=== PATIENT | female | born 1935 | race Caucasian/White ===

== ENCOUNTER 2019-09-22 10:18 | Outpatient (CLI) | payer MEDICARE ==
--- NOTE | 2019-09-22 13:39 | MRI ---
MRI BRAIN WITH AND WITHOUT CONTRAST: Date: 09/22/2019 COMPARISON: None. HISTORY: Family history of intracranial aneurysm, personal history of headaches. TECHNIQUE: Multiplanar, multisequence MR imaging of the brain is obtained with and without contrast. FINDINGS: The diffusion-weighted imaging demonstrates no evidence for acute infarction. The axial gradient echo imaging demonstrates no evidence for intracranial hemorrhage. Regional bone marrow signal intensity appears grossly unremarkable. Arterial flow-voids at the axial level of the skull base appear grossly unremarkable on the T2-weight ed imaging. There is multifocal periventricular, deep, and subcortical white matter T2 and FLAIR hyperintensity, evidence of multifocal small vessel disease. The postcontrast imaging demonstrates no abnormal enhancement within the brain parenchyma. Please not e that this study is not tailored to evaluate the intracranial arterial structures with respect to in tracranial aneurysm. IMPRESSION: Small vessel disease. No acute findings. POS: [facility]
== END 2019-09-22 10:19 | disposition home or self-care (01) ==
LOC: SCSMRI 10:18
PROVIDERS: ATTEND Family Medicine
DX: R51 Headache (principal); G45.9 Transient cerebral ischemic attack, unspecified; Z82.49 Family history of ischemic heart disease and other diseases of the circulatory system
CPT/HCPCS: 70553; 82565

== ENCOUNTER 2020-05-03 17:49 | Inpatient (IN) | payer MEDICARE ==
[2020-05-03] MEDS ORDERED: Aspirin Chewable 81 MG TAB ONE (18:53)
[2020-05-03] MEDS ORDERED: Furosemide 40 MG/4 ML VIAL ONE (18:53)
[2020-05-03 19:26] LABS: Troponin I 0.037 ng/mL (< 0.028)
[2020-05-03] MEDS ORDERED: Ondansetron ODT 4 MG TAB PO PRN (19:32)
[2020-05-03] MEDS ORDERED: Acetaminophen 650 MG Suppository PR PRN (19:32)
[2020-05-03] MEDS ORDERED: Ondansetron PF 4 MG/2 ML Vial IVP PRN (19:32)
[2020-05-03] MEDS ORDERED: Acetaminophen 325 MG TAB PO PRN (19:32)
--- NOTE | 2020-05-03 19:32 | PDOC.FPRHP ---
- History of Present Illness Chief Complaint: CP, SOB History of Present Illness: 84 yo F history of HTN and HLD transfer from [place] complaining of SOB for past week and was found to be in Afib w/RVR with a HR of 141. Patient explains she has been increasingly short of breath the past week especially when walking or lying flat, having to sleep in her recliner the past 4 nights. She also describes swelling in her LE that she first noticed a couple days ago. Patient experienced one episode of chest pain for about half the day a week ago which felt like an elephant was sitting on her chest but has not felt it since. She also endorses an episode of feeling like her heart was racing in the past week. Patient denies fever, chills, N/V, abdominal pain or weakness. ED Course: EKG in [facility] ED revealed Afib w/RVR. Patient received 20 of cardizem and was started on cardizem drip. Received 10mg IV lasix. Cardizem drip on 15/hr in our ED and received an additional 40mg IV lasix - Allergies/Adverse Reactions Allergies Allergy/AdvReac Type Severity Reaction Status Date / Time No Known Drug Allergies Allergy Unverified 05/03/20 19:50 - History PMHx: HTN, HLD, stroke in 2007 PSHx: hysterectomy, skin cancer removal on face FHx: Dad-heart disease, DM. Brother - heart Social: 1/2 PPD for 70 years, denies alcohol, marijuana or drug use - Review of Systems General: denies: fever/chills Eyes: denies: vision changes ENT: denies: nasal congestion, rhinorrhea Respiratory: reports: cough, shortness of breath. denies: congestion Cardiovascular: reports: chest pain, palpitation, edema, paroxysmal nocturnal dyspnea, orthopnea Gastrointestinal: denies: nausea, vomiting, diarrhea, constipation, abdominal pain Genitourinary: denies: dysuria Skin: denies: rashes Musculoskeletal: reports: swelling. denies: pain, tenderness Neurological: denies: numbness, syncope, weakness - Vital signs BP: 125/60 HR: 78 RR: 24 Tmax: 97.8 Pox: 97% on 2L Wt: 61kg - Physical Exam Constitutional: NAD, awake, alert and oriented HEENT: normocephalic and atraumatic, EOMI, grossly normal vision, grossly normal hearing Neck: supple, FROM, no JVD Heart: RRR, no murmurs/rubs/gallops, pulses present -Heart: 1+ LE edema bilaterally Lungs: no respiratory distress, good air movement -Lungs: decreased breath sounds bases bilaterally Abdomen: soft, non-tender, bowel sounds present Musculoskeletal: normal structure, normal tone, ROM grossly normal Neurological: no focal deficit, CN II-XII intact Skin: no rash/lesions Psychiatric: normal mood and affect, good judgment and insight, intact recent and remote memory FMR H&P: Results - Labs Lab results: Na 142, K 4.2, Cl 107, bicarb 24, BUN 18, Cr 1.27, glucose 104, WBC 7.5, Hgb 15.2, Hct 46.6, Plt 235 - EKG Interpretation EKG: Afib, HR 89 - Radiology Interpretation Chest x-ray Status: report reviewed by me (pulmonary vascular congestion, bilateral pleural effusions) FMR H&P: A/P - Plan 84 yo F history of HTN and HLD omplaining of SOB for past week and was found to be in Afib w/RVR New onset Afib w/RVR -HR 141 in [facility] ED, 89 in our ED -titrate cardizem drip -therapeutic lovenox -Cards consult in AM Possible new onset Heart Failure -Received 50mg IV lasix -CXR: pulmonary vascular congestion, b/l pleural effusion -BNP 677, trop 0.024>0.037 -trend trops -Ddimer pending -Strict I/Os, daily weights -20mg IV lasix daily -Cards consult in AM COPD -Patient reports using inhalers in the past -Wheezing on exam -Duonebs prn Tobacco abuse -aware -Nicotine patches HTN -Continue home meds HLD -Continue home meds DVT PPx: therapeutic lovenox Diet: HH Code: FULL PCP: Tono Dispo: eLOS>48 hours pending evaluation and recommendations by cardiology FMR H&P: Upper Level - Plan Date/Time: 05/03/201931 Sahil Grajeda DO, have evaluated this patient and agree with findings/plan as outlined by management intern resident. Pertinent changes/additions are listed here. 84 yo f w pmhx sig for htn, tobacco use. She reports for the past few weeks she has had chest pain/sob with one acute episode of sever chest pain a week ago. She was sent from clinic to [facility] ED, she was dx with afib rvr and concern for new onset CHF. she was given lasix and cardizem in outside ED with control of rate, improvement to breathing. On my exam she is still mildly sob and reports she is not at her baseline but much improved. on exam she has b/l wheeze throughout, irregularly irregular rhythm, minimal NATALIIA. vs stabilized after cardizem labs wnl initially, ekg positive for afib. Will admit to inpatient for new onset afib/possible CHF, continue lasix, cardizem gtt, anticoagulate and monitor on tele, consult cards in AM. Most likely her HTN heart disease is the cause of afib, will eval structure with echo consider also mild copd exac as cause, start with duonebs, if sig improvement consider adding oral pred. concern also for PE considering hx and new onset afib, will obtain ddimer, fu pend results. no acute infection suspected at this point. regarding other chronic medical conditions please see management intern note for mgmt. Addendum - Attending - Attending Attestation Date/Time: 05/03/20 2300 I personally evaluated the patient and discussed the management with Dr. Vallejo/Remberto. I agree with the History, Examination, Assessment and Plan documented above with any addition or exceptions noted below.
[2020-05-03 20:11] LABS: Cardiac Risk 4.5 (Less than 4.5)
[2020-05-03] MEDS ORDERED: Diltiazem 125 MG in Sodium Chloride 0.9% 100 ML IVPB SCH (20:30)
[2020-05-03] MEDS: Nicotine 14 MG PATCH TD SCH (22:37)
[2020-05-03 23:28] LABS: Troponin I 0.037 ng/mL (< 0.028)
[2020-05-04] MEDS ORDERED: Enoxaparin Sodium 60 MG/0.6 ML SYRINGE SC SCH (00:15)
[2020-05-04 01:58] VITALS: BMI 26.2
--- NOTE | 2020-05-04 06:21 | PDOC.FM ---
- Subjective Subjective: Patient sitting up resting comfortably in bed. She says she feels much better. Per tele, she was in Afib/flutter overnight with rate in the 60s-70s. Her dilt drip is at 10. She is on 1L of O2 and denies SOB, CP, RODRIGUEZ, dizziness, abdominal pain. - Objective MAR Reviewed: Yes Vital Signs & Weight: Vital Signs (12 hours) Temp Pulse Resp BP Pulse Ox 05/04/20 03:07 97.6 F 71 21 H 97 05/04/20 01:47 97 05/04/20 01:45 18 97 05/04/20 00:00 97 05/03/20 21:03 98.4 F 125 H 20 126/76 97 Weight Weight 69.173 kg Result Diagrams: 05/04/20 10:30 05/04/20 10:30 Phys Exam - Physical Examination Constitutional: NAD HEENT: moist MMs Neck: full ROM Respiratory: no wheezing, clear to auscultation bilateral afib Gastrointestinal: soft, non-tender trace edema b/l LE Neurological: moves all 4 limbs Psychiatric: normal affect, A&O x 3 Skin: normal turgor Dx/Plan - Plan Plan: New onset Afib w/RVR -HR 141 in [facility] ED, 89 in our ED -titrate cardizem drip -therapeutic lovenox -Cardiology consulted, appreciate the recs -[id number]: 5 Possible new onset Heart Failure -Received 50mg IV lasix in ED -CXR: pulmonary vascular congestion, b/l pleural effusion -BNP 677, trop 0.024>0.037>.037 -Ddimer 1.19, consider CTA -Strict I/Os, daily weights -20mg IV lasix daily -Cardiology consulted, appreciate the recs -follow up echo results COPD -Patient reports using inhalers in the past -not on home O2, weane off of O2 as able, decreased to 1L this morning -Duonebs prn Tobacco abuse -aware -Nicotine patches HTN -Continue home meds HLD -Continue home meds DVT PPx: therapeutic lovenox Diet: HH Code: FULL PCP: Tono Dispo: eLOS>48 hours pending evaluation and recommendations by cardiology Addendum - Attending - Attending Attestation Date/Time: 05/04/201816 I personally evaluated the patient and discussed the management with Dr. Palmer I agree with the History, Examination, Assessment and Plan documented above with any addition or exceptions noted below - Patient without complaints. Feeling better. SOB resolved. Afebrile VSS. A/P: 1) Afib with RVR - now rate controlled on diltiazem drip. Echo EF=55-60% with left atrial dilation and mod-severe MR. Cardiology consulted and will await further recommendations. 2) HTN- stable; continue home meds
[2020-05-04] MEDS ORDERED: Enoxaparin Sodium 40 MG/0.4 ML SYRINGE SC SCH (09:00)
[2020-05-04] MEDS: Lisinopril 20 MG TAB PO SCH ×2 (09:11→21:01)
[2020-05-04] MEDS: Furosemide 20 MG/2 ML VIAL SLOW IVP SCH (09:12)
[2020-05-04 11:31] LABS: #Eosinphils 0.2 thou/uL (0.0-0.7); #Lymphocytes 1.1 thou/uL (1.20-3.40); #Monocytes 0.9 thou/uL (0.11-0.59); #Neutrophils 8.3 thou/uL (1.40-6.50); %Basophils 0.1 % (0.0-1.0); %Eosinophils 1.8 % (0.0-10.0); %Lymphocytes 10.4 % (21.0-51.0); %Monocytes 8.8 % (0.0-10.0); Hemoglobin 13.8 g/dL (12.0-16.0); Mean Corpuscular HGB CONC 32.2 g/dL (32.0-36.0); Mean Corpuscular Volume 89.8 fL (78.0-98.0); Mean Platelet Volume 8.3 fL (7.4-10.4); Platelet Count 242 thou/uL (130-400); RBC Distribution Width 12.5 % (11.5-14.5); Red Blood Cell (RBC) Count 4.77 mill/uL (4.20-5.40); White Blood Cell (WBC) Count 10.5 thou/uL (4.8-10.8)
[2020-05-04 11:40] LABS: Phosphorus 4.6 mg/dL (2.3-4.7)
[2020-05-04 11:41] LABS: ALT (SGPT) 25 U/L (8-55); AST (SGOT) 20 U/L (5-34); Albumin 3.9 g/dL (3.4-4.8); Alkaline Phosphatase 85 U/L (40-110); Anion Gap 16 mmol/L (10-20); BUN (Urea Nitrogen) 26 mg/dL (9.8-20.1); Bilirubin, Total 0.6 mg/dL (0.2-1.2); Calc. Creatinine Clearance 34 mL/min (70-130); Calcium 9.4 mg/dL (7.8-10.44); Carbon Dioxide 24 mmol/L (23-31); Chloride 107 mmol/L (98-107); Estimated GFR-MDRD 36; Globulin 2.9 g/dL (2.4-3.5); Glucose 103 mg/dL (83-110); Magnesium 1.9 mg/dL (1.6-2.6); Potassium 4.1 mmol/L (3.5-5.1); Protein, Total 6.8 g/dL (6.0-8.3); Sodium 143 mmol/L (136-145)
[2020-05-04 13:00] LABS: SARS-CoV-2 MS2 Positive; SARS-CoV-2 N Gene Negative; SARS-CoV-2 S Gene Negative; SARS-CoV-2 by NAA Not Detected (NotDetected); SARS-CoV-2 orf1ab Negative
[2020-05-04] MEDS: Diltiazem HCl SR 60 mg Capsule PO SCH (17:55)
[2020-05-04] MEDS ORDERED: Diltiazem 125 MG in Sodium Chloride 0.9% 100 ML IVPB SCH (18:00)
[2020-05-04] MEDS: Enoxaparin Sodium 80 MG/0.8 ML SYRINGE SC SCH (21:00)
[2020-05-04] MEDS: Atorvastatin Calcium 20 MG TAB PO SCH (21:01)
[2020-05-04] MEDS: Nicotine 14 MG PATCH TD SCH (21:06)
--- NOTE | 2020-05-04 23:18 | CON ---
DATE OF CONSULTATION: 05/04/2020 REASON FOR CONSULTATION: Atrial fibrillation. HISTORY OF PRESENT ILLNESS: Ms. Lebron is very pleasant 84-year-old woman, who has not been seen by Cardiology in the past. She states she began having issues with shortness of breath one week ago. This was fairly acute. She did have mild chest pressure that was short-lived. Her main issue was shortness of breath and dyspnea on exertion with mild exertion. She has no previous history of thyroid dysfunction or alcohol abuse. She does have a history of hypertension. PAST MEDICAL HISTORY: Hypertension, hyperlipidemia, and previous stroke. PAST SURGICAL HISTORY: Hysterectomy. FAMILY HISTORY: Positive for CAD. SOCIAL HISTORY: Previous tobacco use. No alcohol or marijuana use. REVIEW OF SYSTEMS: A 10-point review of systems is reviewed as above, otherwise negative. PHYSICAL EXAMINATION: VITAL SIGNS: Blood pressure 103/54; pulse 74; and temperature, afebrile. GENERAL: Patient is a pleasant female, who is in no acute distress. The patient appears their stated age. NEUROLOGIC: The patient is alert and oriented x3 with no focal neurologic deficits. HEENT: Sclerae without icterus. Mouth has moist mucous membranes with normal pallor. NECK: No JVD. Carotid upstroke brisk. No bruits bilaterally. LUNGS: Clear to auscultation with unlabored respirations. BACK: No scoliosis or kyphosis. CARDIAC: Irregularly irregular with normal S1 and S2. No S3 or S4 noted. No significant rubs, murmurs, thrills, or gallops noted throughout the precordium. PMI is not displaced. There is no parasternal heave. ABDOMEN: Soft, nontender, nondistended. No peritoneal signs present. No hepatosplenomegaly. No abnormal striae. EXTREMITIES: 2+ femoral and 2+ dorsalis pedis pulses. No cyanosis, clubbing, or edema. SKIN: No gross abnormalities. PERTINENT LABORATORY DATA: Hemoglobin 13.8, hematocrit 42.8, and platelet count of 242. IMPRESSION: New onset atrial fibrillation. RECOMMENDATIONS: Echo, Doppler showed normal LVEF. She does have [id number] MR, which may be causing her symptoms. At this point, we would recommend diuresis. We will also supplement with p.o. Cardizem at 60 mg one p.o. q.8 hours and titrate down her IV dose. Continue Lovenox at mg subcu q.12 and we will transition to a novel oral anticoagulant. Plan is rate control and outpatient cardioversion. Job ID: [id number]
[2020-05-05] MEDS: Diltiazem HCl SR 60 mg Capsule PO SCH ×3 (01:25→19:30)
[2020-05-05 04:38] LABS: #Eosinphils 0.1 thou/uL (0.0-0.7); #Lymphocytes 0.9 thou/uL (1.20-3.40); #Monocytes 0.7 thou/uL (0.11-0.59); #Neutrophils 6.5 thou/uL (1.40-6.50); %Basophils 0.3 % (0.0-1.0); %Eosinophils 1.7 % (0.0-10.0); %Lymphocytes 10.4 % (21.0-51.0); %Monocytes 8.6 % (0.0-10.0); Hemoglobin 13.6 g/dL (12.0-16.0); Mean Corpuscular HGB CONC 32.9 g/dL (32.0-36.0); Mean Corpuscular Hemoglobin 29.3 pg (27.0-31.0); Mean Platelet Volume 8.1 fL (7.4-10.4); Platelet Count 240 thou/uL (130-400); RBC Distribution Width 12.6 % (11.5-14.5); Red Blood Cell (RBC) Count 4.65 mill/uL (4.20-5.40); White Blood Cell (WBC) Count 8.2 thou/uL (4.8-10.8)
[2020-05-05 05:01] LABS: ALT (SGPT) 23 U/L (8-55); AST (SGOT) 16 U/L (5-34); Albumin 3.7 g/dL (3.4-4.8); Alkaline Phosphatase 76 U/L (40-110); Anion Gap 15 mmol/L (10-20); BUN (Urea Nitrogen) 28 mg/dL (9.8-20.1); Bilirubin, Total 0.6 mg/dL (0.2-1.2); Calc. Creatinine Clearance 32 mL/min (70-130); Calcium 9.3 mg/dL (7.8-10.44); Carbon Dioxide 23 mmol/L (23-31); Chloride 110 mmol/L (98-107); Estimated GFR-MDRD 34; Globulin 2.8 g/dL (2.4-3.5); Glucose 103 mg/dL (83-110); Potassium 3.8 mmol/L (3.5-5.1); Protein, Total 6.5 g/dL (6.0-8.3); Sodium 144 mmol/L (136-145)
--- NOTE | 2020-05-05 06:14 | PDOC.FM ---
- Subjective Subjective: Patient is doing well today. Tolerating PO. Denies CP, SOB, dizziness, abdominal pain. - Objective MAR Reviewed: Yes Vital Signs & Weight: Vital Signs (12 hours) Temp Pulse Resp BP Pulse Ox 05/05/20 06:05 94 L 05/05/20 04:00 97.3 F L 84 18 118/64 94 L 05/05/20 00:23 96 05/04/20 19:55 97.6 F 78 20 159/78 H 92 L 05/04/20 19:25 93 L 05/04/20 19:24 96 Weight Weight 69.173 kg I&O: 05/03/20 05/04/20 05/05/20 06:59 06:59 06:59 Intake Total 577 Balance 577 Result Diagrams: 05/05/20 09:09 05/05/20 09:09 Phys Exam - Physical Examination Constitutional: NAD Neck: full ROM Respiratory: no wheezing, clear to auscultation bilateral Cardiovascular: RRR, no significant murmur Gastrointestinal: soft, non-tender Musculoskeletal: pulses present trace edema b/l LE Neurological: moves all 4 limbs Psychiatric: normal affect, A&O x 3 Skin: normal turgor Dx/Plan - Plan Plan: New onset Afib w/RVR -HR 141 in [facility] ED, 89 in our ED -titrate cardizem drip, transition to PO -therapeutic lovenox, will need to discharge on Eliquis 5mg BID -Cardiology consulted, appreciate the recs -[id number]: 5 Possible new onset Heart Failure -Received 50mg IV lasix in ED -CXR: pulmonary vascular congestion, b/l pleural effusion -BNP 677, trop 0.024>0.037>.037 -Ddimer 1.19, consider CTA -Strict I/Os, daily weights -20mg IV lasix daily -Cardiology consulted, appreciate the recs -echo: EF 55-60%, diastolic function could not be assessed. LA severely dilated, moderate to severe MR CEFERINO -likely 2/2 lasix, iatrogenic -will hold morning dose of Lasix as patient is euvolemic -continue to monitor with morning labs -continue to monitor kidney function outpatient COPD -Patient reports using inhalers in the past -not on home O2, weane off of O2 as able, decreased to 1L this morning -Duonebs prn Tobacco abuse -aware -Nicotine patches HTN -Continue home meds HLD -Continue home meds DVT PPx: therapeutic lovenox, transition to Eliquis Diet: Code: FULL PCP: Tono Dispo: eLOS>48 hours pending evaluation and recommendations by cardiology Addendum - Attending - Attending Attestation Date/Time: 05/05/20 7401 I personally evaluated the patient and discussed the management with Dr. Palmer I agree with the History, Examination, Assessment and Plan documented above with any addition or exceptions noted below - Patient without complaints. SOB resolved. Afebrile VSS. A/P: 1) New onset Afib with RVR - rate controlled on diltiazem. Appreciate cardiology recommendations. Plan to transition from lovenox to eliquis tonight. Plan for outpatient cardioversion. 3) CEFERINO- Cr increasing slowly; hold lisinopril today and recheck in AM.
[2020-05-05] MEDS: Enoxaparin Sodium 80 MG/0.8 ML SYRINGE SC SCH (08:34)
[2020-05-05] MEDS: Lisinopril 20 MG TAB PO SCH ×2 (08:36→21:15)
[2020-05-05 09:23] LABS: Hemoglobin 13.8 g/dL (12.0-16.0); Platelet Count 243 thou/uL (130-400)
--- NOTE | 2020-05-05 18:30 | PDOC.CPN ---
- Subjective Date: 05/05/20 Time: 13:10 Interval history: Patient without complaints. Says palpitations have resolved. Tele shows coarse AF vs intermittent AFlutter - Review of Systems General: denies: fever/chills, weight/appetite/sleep changes, night sweats, fatigue Respiratory: denies: cough, congestion, shortness of breath, exercise intolerance Cardiovascular: denies: chest pain, palpitation, edema, paroxysmal nocturnal dyspnea, orthopnea Gastrointestinal: denies: nausea, vomiting, diarrhea, constipation, abd pain, GI bleeding Musculoskeletal: denies: pain, tenderness, stiffness, swelling, arthritis/arthralgias Neurological: denies: numbness, syncope, seizure, weakness - Objective Allergies/Adverse Reactions: Allergies Allergy/AdvReac Type Severity Reaction Status Date / Time No Known Drug Allergies Allergy Verified 05/04/20 01:55 Visit Medications: Current Medications Acetaminophen (Acetaminophen 325 Mg Tab) 650 mg PO Q4H PRN PRN Reason: Headache/Fever/Mild Pain (1-3) Acetaminophen (Acetaminophen 650 Mg Suppository) 650 mg IA Q4H PRN PRN Reason: Headache/Fever/Mild Pain (1-3) Albuterol/Ipratropium (Ipratropium/Albuterol Sulfate 3 Ml Neb) 3 ml NEB [id number] [facility] Last Admin: 05/05/20 13:32 Dose: 3 ml Documented by: Apixaban (Apixaban 5 Mg Tab) 5 mg PO BID [facility] Atorvastatin Calcium (Atorvastatin Calcium 20 Mg Tab) 20 mg PO HS [facility] Last Admin: 05/04/20 21:01 Dose: 20 mg Documented by: Diltiazem HCl (Diltiazem Hcl Sr 60 Mg Capsule) 60 mg PO Q8H [facility] Last Admin: 05/05/20 08:33 Dose: 60 mg Documented by: Furosemide (Furosemide 20 Mg/2 Ml Vial) 20 mg SLOW IVP DAILY [facility] Last Admin: 05/04/20 09:12 Dose: 20 mg Documented by: Lisinopril (Lisinopril 20 Mg Tab) 20 mg PO BID [facility] Last Admin: 05/05/20 08:36 Dose: 20 mg Documented by: Nicotine (Nicotine 14 Mg Patch) 14 mg TD Q24HR [facility] Last Admin: 05/04/20 21:06 Dose: 14 mg Documented by: Ondansetron HCl (Ondansetron Odt 4 Mg Tab) 4 mg PO Q6H PRN PRN Reason: Nausea/Vomiting Ondansetron HCl (Ondansetron Pf 4 Mg/2 Ml Vial) 4 mg IVP Q6H PRN PRN Reason: Nausea/Vomiting Sodium Chloride (Flush - Normal Saline 10 Ml Syringe) 10 ml IVF PRN PRN PRN Reason: Saline Flush Vital Signs & Weight: Vital Signs Temp Pulse Resp BP BP Pulse Ox 05/05/20 11:43 97.9 F 93 18 113/59 L 96 05/05/20 08:36 129/63 05/05/20 08:12 59 L 18 95 05/05/20 08:00 96 05/05/20 07:21 96.0 F L 81 18 130/76 96 Weight 153 lb 7 oz - Physical Exam General: alert & oriented x3, appears well, no apparent distress HEENT: mucus membranes moist Neck: supple neck Cardiac: other (IRR IRR) Lungs: normal breath sounds Neuro: grossly intact Abdomen: soft Extremities: no edema Skin: clear Musculoskeletal: no pain - Labs Result Diagrams: 05/05/20 09:09 05/05/20 09:09 Troponin/CKMB Troponin I 0.037 ng/mL (< 0.028) H 05/03/20 22:40 - Assessment/Plan Assessment/Plan: 1. New-onset AF. ?AFl intermittently Rate-controlled. Patient symptomatically improved. Will ask EP to review tele strips. If not plan for RFA, ok to discharge when rate-controlled for 24 hours.
[2020-05-05] MEDS: Nicotine 14 MG PATCH TD SCH (21:15)
[2020-05-05] MEDS: Apixaban 5 MG TAB PO SCH (21:16)
[2020-05-05] MEDS: Atorvastatin Calcium 20 MG TAB PO SCH (21:16)
[2020-05-06] MEDS: Diltiazem HCl SR 60 mg Capsule PO SCH (01:18)
[2020-05-06 05:02] LABS: #Eosinphils 0.2 thou/uL (0.0-0.7); #Lymphocytes 1.2 thou/uL (1.20-3.40); #Monocytes 0.8 thou/uL (0.11-0.59); #Neutrophils 6.3 thou/uL (1.40-6.50); %Basophils 0.5 % (0.0-1.0); %Eosinophils 2.2 % (0.0-10.0); %Lymphocytes 14.4 % (21.0-51.0); %Monocytes 9.2 % (0.0-10.0); %Neutrophils 73.7 % (42.0-75.0); Hemoglobin 13.7 g/dL (12.0-16.0); Mean Corpuscular HGB CONC 33.2 g/dL (32.0-36.0); Mean Corpuscular Hemoglobin 29.7 pg (27.0-31.0); Mean Corpuscular Volume 89.3 fL (78.0-98.0); Mean Platelet Volume 8.1 fL (7.4-10.4); Platelet Count 263 thou/uL (130-400); RBC Distribution Width 12.5 % (11.5-14.5); White Blood Cell (WBC) Count 8.5 thou/uL (4.8-10.8)
[2020-05-06 05:16] LABS: ALT (SGPT) 19 U/L (8-55); AST (SGOT) 15 U/L (5-34); Albumin 3.7 g/dL (3.4-4.8); Alkaline Phosphatase 79 U/L (40-110); Anion Gap 15 mmol/L (10-20); BUN (Urea Nitrogen) 24 mg/dL (9.8-20.1); Bilirubin, Total 0.7 mg/dL (0.2-1.2); Calc. Creatinine Clearance 39 mL/min (70-130); Carbon Dioxide 25 mmol/L (23-31); Chloride 109 mmol/L (98-107); Estimated GFR-MDRD 42; Globulin 2.9 g/dL (2.4-3.5); Glucose 101 mg/dL (83-110); Potassium 3.9 mmol/L (3.5-5.1); Protein, Total 6.6 g/dL (6.0-8.3); Sodium 145 mmol/L (136-145)
--- NOTE | 2020-05-06 06:17 | PDOC.FM ---
- Subjective Subjective: Patient resting comfortably, sitting up in bed. Denies CP, SOB, dizziness. Overnight, patient had one episode on tele of Afib with rate of 130. Otherwise she has been in Afib vs Aflutter with rates in the 80s. - Objective MAR Reviewed: Yes Vital Signs & Weight: Vital Signs (12 hours) Temp Pulse Resp BP Pulse Ox 05/06/20 04:04 97.5 F L 97 18 97/67 92 L 05/06/20 00:53 94 L 05/05/20 19:50 98.2 F 90 18 114/54 L 96 05/05/20 19:45 94 L 05/05/20 19:43 95 Weight Weight 69.57 kg I&O: 05/04/20 05/05/20 05/06/20 06:59 06:59 06:59 Intake Total 927 650 Output Total 600 Balance 327 650 Result Diagrams: 05/06/20 04:19 05/06/20 04:19 Phys Exam - Physical Examination Constitutional: NAD Neck: full ROM Respiratory: no wheezing, clear to auscultation bilateral Cardiovascular: no significant murmur irregular rhythm Gastrointestinal: soft trace edema b/l Neurological: moves all 4 limbs Skin: normal turgor Dx/Plan - Plan Plan: New onset Afib w/RVR -HR 141 in [facility] ED, 89 in our ED -cardizem gtt stopped 05/05 at 1030 -transitioned to PO -transitioned to Eliquis 5mg BID -Cardiology consulted, appreciate the recs: -Plan for RFA -discharge home when rate controlled for 24 hours -[id number]: 5 Possible new onset Heart Failure -Received 50mg IV lasix in ED -CXR: pulmonary vascular congestion, b/l pleural effusion -BNP 677, trop 0.024>0.037>.037 -Ddimer 1.19, consider CTA -Strict I/Os, daily weights -20mg IV lasix PRN -Cardiology consulted, appreciate the recs -echo: EF 55-60%, diastolic function could not be assessed. LA severely dilated, moderate to severe MR CEFERINO, improving -likely 2/2 lasix, iatrogenic -will hold Lasix as patient seems to be euvolemic -continue to monitor with morning labs -continue to monitor kidney function outpatient COPD -Patient reports using inhalers in the past -not on home O2, weane off of O2 as able, decreased to 1L this morning -Duonebs prn Tobacco abuse -aware -Nicotine patches HTN -Continue home meds HLD -Continue home meds DVT PPx: Eliquis Diet: HH Code: FULL PCP: Tono Dispo: eLOS>48 hours pending evaluation and recommendations by cardiology. Must be rate controlled for 24 hours for discharge. Addendum - Attending - Attending Attestation Date/Time: 05/06/20 5439 I personally evaluated the patient and discussed the management with Dr. Palmer I agree with the History, Examination, Assessment and Plan documented above with any addition or exceptions noted below - Patient denies complaints. SOB res olved. Afebrile VSS. A/P: 1) Afib - did have some increase heart rate this morning. Has transitioned to long acting po calcium channel suzanne. Appreciate cardiology assistance/recommendations. Monitor till heart rate stable for 24 hours.
[2020-05-06] MEDS: Lisinopril 20 MG TAB PO SCH ×2 (07:49→22:57)
[2020-05-06] MEDS: Apixaban 5 MG TAB PO SCH ×2 (07:49→21:48)
[2020-05-06] MEDS: Furosemide 20 MG/2 ML VIAL SLOW IVP SCH (07:50)
--- NOTE | 2020-05-06 13:02 | PRG ---
DATE OF SERVICE: 05/06/2020 SUBJECTIVE: Ms. Lebron is doing better. Heart rate did increase today to 101. She was switched from short-acting calcium channel blockade to long-acting blockade. OBJECTIVE: VITAL SIGNS: Heart rate 97, blood pressure 131/60, temperature 98.1. LUNGS: Clear to auscultation. HEART: Irregularly irregular. ABDOMEN: Soft, nontender, nondistended. EXTREMITIES: No edema. IMPRESSION: 1. New-onset atrial fibrillation. 2. [id number] MR. 3. Tobacco abuse. RECOMMENDATIONS: Once her heart rate is stable and controlled, would be okay from my standpoint to discharge home with close outpatient followup. Plan is to follow up with Ms. Lebron next week in the office and will need to titrate up further if needed her calcium channel blockade. We will also consider cardioversion as an outpatient if she continues to be symptomatic. Job ID: [id number]
--- NOTE | 2020-05-06 19:03 | CON ---
DATE OF CONSULTATION: 05/06/2020 HISTORY OF PRESENT ILLNESS: I am seeing Ms. Lebron at our [facility] telemetry floor for electrophysiology consult and her problems are 1. Presentation with newly found atrial fibrillation with rapid ventricular rates associated with dyspnea. 2. Diastolic heart failure with BNP of 677 on 05/02/2020. a. 2D echo from 05/04/2020 reveals LVEF of 55% to 60%, severely enlarged left atrium with moderate to severe MR, mild to moderate TR. 3. CHADS-VASc score of 6 with history of hypertension, stroke in 2007, age and gender, on Eliquis therapy. 4. Transient epistaxis noted after initiating Eliquis. ALLERGIES: NONE NOTED. MEDICATIONS: At home included Lipitor and lisinopril. SUBJECTIVE: Ms. Lebron is here with her son given her dyspnea for about a [id number]-half prior to admission. She had difficult time breathing, specially lying flat. She has to be often in a recliner 4 nights prior to admission. She also noted markedly lower extremity edema. She did experience an episode of chest pains within a day of admission and she did notice her heart racing as well for at least a week prior to admission. She denies fever, chills, nausea, vomiting, or stroke-like symptoms at this point. She denies prior history of palpitations or arrhythmias. REVIEW OF SYSTEMS: Rest of 12-point review of system otherwise unremarkable. PAST MEDICAL HISTORY: As above. PAST SURGICAL HISTORY: Significant for hysterectomy. FAMILY HISTORY: Significant for coronary artery disease of the father, also brother had heart disease. SOCIAL HISTORY: The patient is a half a pack cigarette smoker for 70 years. Denies EtOH or drug use. OBJECTIVE DATA: VITAL SIGNS: Blood pressure currently 131/60, heart rate 97, respirations 16, and temperature 98.1 degrees Fahrenheit. GENERAL: Alert and oriented woman, in no apparent distress. NECK: Supple. Jugular veins not distended. CHEST: Coarse without crackles. HEART: Sounds are irregularly irregular. S1, S2 are variable. 1/6 holosystolic murmur is heard. ABDOMEN: Benign. Bowel sounds are positive. No hepatosplenomegaly is appreciated. EXTREMITIES: Lower extremities is 0 to 1+ edema bilaterally and pulses are mildly diminished. Lower extremities are warm. NEUROLOGIC: The patient is nonfocal. MUSCULOSKELETAL: Without joint swelling, deformity. SKIN: Without rash. DATABASE: The EKG was reviewed in detail, initially reveals atrial fibrillation with ventricular rates of 141 beats per minute, narrow QRS, QTc 465 milliseconds. Subsequent EKG reveals better rate control with 89 beats per minute on the 3rd at 6 p.m. QTc 462 milliseconds. Telemetry strips revealed continued atrial fibrillation course and occasional atypical atrial flutter waves are seen. LABORATORY DATA: Sodium 145, potassium 3.9, BUN is 24, creatinine 1.22. The white count is 8.5, hemoglobin 13.7, platelet count is 263. The D-dimer is 1.19. The chest x-ray on 05/03/2020 was showing a small pleural effusions and evidence of pulmonary vascular congestion. ASSESSMENT AND PLAN: Mrs. Lebron is a very pleasant 84-year-old lady who is presenting with diastolic heart failure associated with atrial fibrillation and rapid rates. She was diuresed and adequately rate controlled with the initiated diltiazem CD medication. She was placed on Eliquis for anticoagulation. Currently, she is doing better. Her heart failure symptoms have resolved. Atrial fibrillation still persists, but with reasonable rate control. She did mention an episode of epistaxis while on Eliquis, but that is also resolved currently. My plan at this 1. Regarding her atrial fibrillation, we discussed the mechanism and implications of atrial fibrillation. She understands the rationale for anticoagulation and rate control. It is reasonable to consider cardioversion after month of anticoagulation.She is noted to have severe left atrial enlargement. She likely will need antiarrhythmic agents for rhythm suppression. If no coronary artery disease suspected, flecainide could be considered. Alternatively, Multaq vs amiodarone is an option, but close monitoring of her QT length will be necessary. 2. Markedly elevated CHADS-VASc score. Remote history of stroke, age, hypertension, gender. I would recommend continued anticoagulation. If bleeding issues occur and she could not tolerate anticoagulants, she may be a reasonable candidate for Watchman device placement long-term. 3. Hypertension, well controlled. 4. Smoking cessation recommended. We will have to see this lady back in 6 weeks, after her cardioversion with cardiology. Thank you for allowing me to participate in the care of this patient. Job ID: [id number] [facility]Young
[2020-05-06] MEDS: Atorvastatin Calcium 20 MG TAB PO SCH (21:48)
[2020-05-06] MEDS: Nicotine 14 MG PATCH TD SCH (21:51)
[2020-05-07 04:06] LABS: #Eosinphils 0.3 thou/uL (0.0-0.7); #Lymphocytes 0.9 thou/uL (1.20-3.40); #Monocytes 0.9 thou/uL (0.11-0.59); #Neutrophils 5.8 thou/uL (1.40-6.50); %Basophils 0.4 % (0.0-1.0); %Eosinophils 3.4 % (0.0-10.0); %Lymphocytes 11.4 % (21.0-51.0); %Monocytes 11.1 % (0.0-10.0); %Neutrophils 73.7 % (42.0-75.0); Hemoglobin 12.9 g/dL (12.0-16.0); Mean Corpuscular HGB CONC 32.5 g/dL (32.0-36.0); Mean Corpuscular Hemoglobin 29.5 pg (27.0-31.0); Mean Corpuscular Volume 90.7 fL (78.0-98.0); Mean Platelet Volume 8.4 fL (7.4-10.4); Platelet Count 238 thou/uL (130-400); RBC Distribution Width 12.5 % (11.5-14.5); Red Blood Cell (RBC) Count 4.37 mill/uL (4.20-5.40); White Blood Cell (WBC) Count 7.8 thou/uL (4.8-10.8)
[2020-05-07 04:19] LABS: ALT (SGPT) 20 U/L (8-55); AST (SGOT) 18 U/L (5-34); Albumin 3.3 g/dL (3.4-4.8); Alkaline Phosphatase 78 U/L (40-110); Anion Gap 14 mmol/L (10-20); BUN (Urea Nitrogen) 21 mg/dL (9.8-20.1); Bilirubin, Total 0.4 mg/dL (0.2-1.2); Calc. Creatinine Clearance 44 mL/min (70-130); Calcium 8.8 mg/dL (7.8-10.44); Carbon Dioxide 21 mmol/L (23-31); Chloride 110 mmol/L (98-107); Estimated GFR-MDRD 48; Globulin 2.7 g/dL (2.4-3.5); Glucose 98 mg/dL (83-110); Potassium 4.1 mmol/L (3.5-5.1); Sodium 141 mmol/L (136-145)
--- NOTE | 2020-05-07 05:35 | PDOC.FM ---
- Subjective Subjective: Patient reports mild cough this morning. Denies any chest, abdominal pain. Reports mild SOB with exertion. On 2L NC in bed but denies SOB at rest or difficulty breathing. Reports tolerating PO intake and 2 BM. Expresses desire to go home. - Objective MAR Reviewed: Yes Vital Signs & Weight: Vital Signs (12 hours) Temp Pulse Resp BP BP Pulse Ox 05/07/20 03:54 98.5 F 97 20 100/53 L 100 05/07/20 01:24 82 16 94 L 05/06/20 23:45 67 123/59 L 05/06/20 22:57 130/60 05/06/20 20:50 97.8 F 92 18 130/60 92 L 05/06/20 18:43 84 18 95 Weight Weight 69.57 kg I&O: 05/05/20 05/06/20 05/07/20 06:59 06:59 06:59 Intake Total 927 750 Output Total 600 525 Balance 327 225 Result Diagrams: 05/07/20 03:37 05/07/20 03:37 EKG Reviewed by me: Yes (Afib/flutter in 90s) Phys Exam - Physical Examination Constitutional: NAD HEENT: moist MMs Neck: supple, full ROM Respiratory: wheezing present Cardiovascular: irregular Gastrointestinal: soft, no distention, positive bowel sounds Musculoskeletal: no edema Neurological: non-focal, normal sensation Psychiatric: normal affect, A&O x 3 Skin: no rash Dx/Plan - Plan Plan: New onset Afib w/RVR -HR 141 in [place] ED, 89 in our ED -cardizem gtt stopped 05/05 at 1030, transitioned to PO -transitioned to Eliquis 5mg BID -Cardiology consulted, appreciate the recs: Plan for RFA, discharge home when rate controlled for 24 hours, will touch base regarding pt's rate overnight -EP consulted: could be candidate for cardioversion after 1 month of antic oagulation, will likely need antiarrhythmic -[id number]: 6 (age, gender, remote history of stroke, HTN) -HR mainly ranged from 90s-110 overnight with episode of HR in 130s early this am Possible new onset Heart Failure -s/p lasix, holding due to CEFERINO -CXR: pulmonary vascular congestion, b/l pleural effusion -BNP 677, trop 0.024>0.037>.037 -Ddimer 1.19, consider CTA -Strict I/Os, daily weights -Cardiology consulted, appreciate the recs -echo: EF 55-60%, diastolic function could not be assessed. LA severely dilated, moderate to severe MR CEFERINO, resolved -likely 2/2 lasix, iatrogenic -lasix held, patient appears euvolemic -continue to monitor while inpatient and monitor outpatient COPD -Reported use of inhalers in the past -pt denies history of COPD, but wheezing on exam this am, improved after Duoneb -not on home O2, will wean O2 as tolerated -Duonebs ely q6 hr -consider DC home with inhaler Tobacco abuse -aware, cessation encouraged -Nicotine patches HTN -Continue home meds HLD -Continue home meds DVT PPx: Eliquis Diet: HH Code: FULL PCP: Tono Dispo: Will touch base with cardiology regarding pt's rate overnight; Pt needs to be rate controlled for 24 hours before DC Addendum - Attending - Attending Attestation Date/Time: 05/07/201907 I personally evaluated the patient and discussed the management with Dr. Mercedes rocha. I agree with the History, Examination, Assessment and Plan documented above with any addition or exceptions noted below - Patient without complaints. Denies CP or SOB. Afebrile VSS. A/P: 1) Afib/flutter with RVR- still having intermittent episodes of increased HR. Will discuss with cardiology regarding increasing diltiazem versus addition of other medication. Appreciate cardiology and EP assistance. Continue eliquis.
[2020-05-07] MEDS: Lisinopril 20 MG TAB PO SCH ×2 (08:43→21:48)
[2020-05-07] MEDS: Apixaban 5 MG TAB PO SCH ×2 (08:44→21:48)
--- NOTE | 2020-05-07 11:54 | EKG ---
Test Reason : A-FIB Blood Pressure : / mmHG Vent. Rate : 089 BPM Atrial Rate : 049 BPM P-R Int : 000 ms QRS Dur : 080 ms QT Int : 380 ms P-R-T Axes : 000 061 095 degrees QTc Int : 462 ms Atrial fibrillation Abnormal ECG Confirmed by MO Cheema, KIA ([id number]), food expeditor BG MALDONADO ([id number]) on 05/07/2020 11:54:29 AM Referred By: MO Confirmed By:KIA HASSAN M.D.
[2020-05-07] MEDS: Atorvastatin Calcium 20 MG TAB PO SCH (21:48)
[2020-05-07] MEDS: Nicotine 14 MG PATCH TD SCH (21:48)
[2020-05-08 04:26] LABS: #Eosinphils 0.2 thou/uL (0.0-0.7); #Lymphocytes 0.7 thou/uL (1.20-3.40); #Monocytes 0.7 thou/uL (0.11-0.59); #Neutrophils 5.6 thou/uL (1.40-6.50); %Basophils 0.6 % (0.0-1.0); %Eosinophils 2.6 % (0.0-10.0); %Lymphocytes 10.1 % (21.0-51.0); %Neutrophils 77.7 % (42.0-75.0); Hemoglobin 13.2 g/dL (12.0-16.0); Mean Corpuscular HGB CONC 32.7 g/dL (32.0-36.0); Mean Corpuscular Hemoglobin 29.7 pg (27.0-31.0); Mean Corpuscular Volume 90.7 fL (78.0-98.0); Mean Platelet Volume 7.7 fL (7.4-10.4); Platelet Count 249 thou/uL (130-400); RBC Distribution Width 12.5 % (11.5-14.5); Red Blood Cell (RBC) Count 4.43 mill/uL (4.20-5.40); White Blood Cell (WBC) Count 7.2 thou/uL (4.8-10.8)
[2020-05-08 04:47] LABS: ALT (SGPT) 26 U/L (8-55); AST (SGOT) 28 U/L (5-34); Albumin 3.3 g/dL (3.4-4.8); Alkaline Phosphatase 71 U/L (40-110); Anion Gap 14 mmol/L (10-20); BUN (Urea Nitrogen) 18 mg/dL (9.8-20.1); Bilirubin, Total 0.5 mg/dL (0.2-1.2); Calc. Creatinine Clearance 45 mL/min (70-130); Calcium 8.6 mg/dL (7.8-10.44); Carbon Dioxide 21 mmol/L (23-31); Chloride 108 mmol/L (98-107); Estimated GFR-MDRD 49; Globulin 2.5 g/dL (2.4-3.5); Glucose 93 mg/dL (83-110); Potassium 4.1 mmol/L (3.5-5.1); Protein, Total 5.8 g/dL (6.0-8.3); Sodium 139 mmol/L (136-145)
--- NOTE | 2020-05-08 05:57 | PDOC.FM ---
- Subjective Subjective: Patient reports that she is doing well this morning. Denies SOB or chest pain, no longer on NC. Reports that she was up using the bathroom at 0530 when HR reached 140. Patient reports that she is not sleeping well and expresses desire to go home. - Objective Vital Signs & Weight: Vital Signs (12 hours) Temp Pulse Resp BP BP Pulse Ox 05/07/20 23:48 88 16 95 05/07/20 21:48 123/72 05/07/20 19:52 98.1 F 105 H 16 123/72 94 L 05/07/20 18:39 91 18 94 L Weight Weight 70.171 kg I&O: 05/06/20 05/07/20 05/08/20 06:59 06:59 06:59 Intake Total 750 120 240 Output Total 525 400 800 Balance 225 280 -560 Result Diagrams: 05/08/20 09:17 05/08/20 09:17 EKG Reviewed by me: Yes (Afib/Flutter) Phys Exam - Physical Examination Constitutional: NAD HEENT: moist MMs Neck: supple, full ROM Respiratory: no wheezing, no rales, no rhonchi, clear to auscultation bilateral Cardiovascular: irregular Gastrointestinal: soft, non-tender Musculoskeletal: no edema Neurological: non-focal, normal sensation Psychiatric: normal affect, A&O x 3 Skin: no rash Dx/Plan - Plan Plan: New onset Afib w/RVR -HR 141 in [place] ED, 89 in our ED -cardizem gtt stopped 05/05 at 1030, transitioned to PO, increased to 240 mg of Dilt yesterday -transitioned to Eliquis 5mg BID -Cardiology consulted, appreciate the recs: Plan for RFA, discharge home when rate controlled for 24 hours - due to continued increase in HR despite being on 240 mg of Dilt, will start pt on Digoxin; Pt will be receiving loading dose of 0.5 mg this am, followed by 0.25 mg later today, and then 0.125 mg daily starting tomorrow -EP consulted: could be candidate for cardioversion after 1 month of anticoagulation, will likely need antiarrhythmic -[id number]: 6 (age, gender, remote history of stroke, HTN) -HR mainly ranged from 90s-110, patient did have episodes of HR in 140s and 130s, see above for changes in medication Possible new onset Heart Failure -s/p lasix, holding due to CEFERINO -CXR: pulmonary vascular congestion, b/l pleural effusion -BNP 677, trop 0.024>0.037>.037 -Ddimer 1.19, consider CTA -Strict I/Os, daily weights -Cardiology consulted, appreciate the recs -echo: EF 55-60%, diastolic function could not be assessed. LA severely dilated, moderate to severe MR CEFERINO, resolved -likely 2/2 lasix, iatrogenic -lasix held, patient appears euvolemic -continue to monitor while inpatient and monitor outpatient COPD -Reported use of inhalers in the past -yesterday's wheezing improved with Duoneb -no longer requiring NC -Duonebs ely q6 hr -consider DC home with inhaler Tobacco abuse -aware, cessation encouraged -Nicotine patches HTN -Continue home meds HLD -Continue home meds DVT PPx: Eliquis Diet: HH Code: FULL PCP: Tono Dispo: Due to continued increase in HR overnight, will start Dig and monitor patient overnight; if HR is controlled overnight, likely DC tomorrow Addendum - Attending - Attending Attestation Date/Time: 05/08/20 9766 I personally evaluated the patient and discussed the management with Dr. Arias I agree with the History, Examination, Assessment and Plan documented above with any addition or exceptions noted below - Patient without complaints. Denies SOB/CP. Afebrile VSS. A/P: 1) Newly diagnosed Afib with RVR- still having episodes of RVR; discussed with cardiology and will start on digoxin. Continue to monitor. Continue eliquis.
[2020-05-08] MEDS ORDERED: Digoxin 0.25 MG TAB PO SCH ×2 (08:30→15:00)
[2020-05-08] MEDS: Lisinopril 20 MG TAB PO SCH ×2 (08:56→20:30)
[2020-05-08] MEDS: Apixaban 5 MG TAB PO SCH ×2 (08:56→20:31)
[2020-05-08 09:28] LABS: Hemoglobin 13.6 g/dL (12.0-16.0); Platelet Count 285 thou/uL (130-400)
[2020-05-08] MEDS: Atorvastatin Calcium 20 MG TAB PO SCH (20:31)
[2020-05-08] MEDS: Nicotine 14 MG PATCH TD SCH (20:31)
--- NOTE | 2020-05-08 20:54 | EKG ---
Test Reason : Blood Pressure : / mmHG Vent. Rate : 093 BPM Atrial Rate : 300 BPM P-R Int : 000 ms QRS Dur : 088 ms QT Int : 382 ms P-R-T Axes : 000 033 048 degrees QTc Int : 474 ms Atrial fibrillation Nonspecific T wave abnormality , probably digitalis effect Prolonged QT Abnormal ECG When compared with ECG of 03-MAY-2020 18:10, (Unconfirmed) Nonspecific T wave abnormality now evident in Inferior leads Confirmed by Kami DANIEL ([id number]) on 05/08/2020 8:53:30 PM Referred By: PATRICIA Confirmed By:Kami DANIEL
[2020-05-09 04:27] LABS: #Basophils 0.1 thou/uL (0.0-0.2); #Eosinphils 0.2 thou/uL (0.0-0.7); #Lymphocytes 0.8 thou/uL (1.20-3.40); #Monocytes 0.6 thou/uL (0.11-0.59); %Basophils 0.9 % (0.0-1.0); %Lymphocytes 11.9 % (21.0-51.0); %Monocytes 8.5 % (0.0-10.0); %Neutrophils 75.7 % (42.0-75.0); Hemoglobin 14.3 g/dL (12.0-16.0); Mean Corpuscular HGB CONC 33.3 g/dL (32.0-36.0); Mean Corpuscular Hemoglobin 29.6 pg (27.0-31.0); Mean Corpuscular Volume 88.7 fL (78.0-98.0); Mean Platelet Volume 7.8 fL (7.4-10.4); Platelet Count 283 thou/uL (130-400); RBC Distribution Width 12.5 % (11.5-14.5); Red Blood Cell (RBC) Count 4.83 mill/uL (4.20-5.40); White Blood Cell (WBC) Count 6.6 thou/uL (4.8-10.8)
[2020-05-09 04:54] LABS: ALT (SGPT) 43 U/L (8-55); AST (SGOT) 40 U/L (5-34); Albumin 3.7 g/dL (3.4-4.8); Alkaline Phosphatase 76 U/L (40-110); Anion Gap 14 mmol/L (10-20); BUN (Urea Nitrogen) 16 mg/dL (9.8-20.1); Bilirubin, Total 0.6 mg/dL (0.2-1.2); Calc. Creatinine Clearance 42 mL/min (70-130); Calcium 9.1 mg/dL (7.8-10.44); Carbon Dioxide 22 mmol/L (23-31); Chloride 109 mmol/L (98-107); Estimated GFR-MDRD 46; Globulin 2.9 g/dL (2.4-3.5); Glucose 87 mg/dL (83-110); Potassium 4.1 mmol/L (3.5-5.1); Protein, Total 6.6 g/dL (6.0-8.3); Sodium 141 mmol/L (136-145)
--- NOTE | 2020-05-09 06:22 | PDOC.FM ---
- Subjective Subjective: Patient is resting comfortably in bed. She is nervous/anxious for her cardioversion this morning. Otherwise, is doing well. - Objective MAR Reviewed: Yes Vital Signs & Weight: Vital Signs (12 hours) Temp Pulse Resp BP BP Pulse Ox 05/09/20 03:37 98.2 F 94 15 127/64 94 L 05/08/20 20:30 113/56 L 05/08/20 20:02 97.4 F L 78 18 113/56 L 94 L 05/08/20 20:00 94 L 05/08/20 18:36 94 18 94 L Weight Weight 70.488 kg I&O: 05/07/20 05/08/20 05/09/20 06:59 06:59 06:59 Intake Total 120 470 Output Total 400 1300 Balance -280 -830 Result Diagrams: 05/09/20 03:59 05/09/20 03:59 Phys Exam - Physical Examination Constitutional: NAD Neck: supple Respiratory: no wheezing, clear to auscultation bilateral Cardiovascular: no significant murmur afib Gastrointestinal: soft Musculoskeletal: no edema, pulses present Neurological: moves all 4 limbs Psychiatric: A&O x 3 Skin: normal turgor Dx/Plan - Plan Plan: New onset Afib w/RVR -HR 141 in [place] ED, 89 in our ED -cardizem gtt stopped 05/05 at 1030, transitioned to PO, increased to 240 mg of Dilt -transitioned to Eliquis 5mg BID -Cardiology consulted, appreciate the recs: discharge home when rate controlled for 24 hours - due to continued increase in HR despite being on 240 mg of Dilt, will start pt on Digoxin; Pt will be receiving loading dose of 0.5 mg this am, followed by 0.25 mg later today, and then 0.125 mg daily starting 05/09 -EP consulted: "could be candidate for cardioversion after 1 month of anticoagulation, will likely need antiarrhythmic " -[id number]: 6 (age, gender, remote history of stroke, HTN) -plan for cardioversion 05/09 at noon -follow up TSH Possible new onset Heart Failure -s/p lasix, holding due to CEFERINO -CXR: pulmonary vascular congestion, b/l pleural effusion -BNP 677, trop 0.024>0.037>.037 -Ddimer 1.19, consider CTA -Strict I/Os, daily weights -Cardiology consulted, appreciate the recs -echo: EF 55-60%, diastolic function could not be assessed. LA severely dilated, moderate to severe MR CEFERINO, resolved -likely 2/2 lasix, iatrogenic -lasix held, patient appears euvolemic -continue to monitor while inpatient and monitor outpatient COPD -Reported use of inhalers in the past -yesterday's wheezing improved with Duoneb -no longer requiring NC -Duonebs ely q6 hr -consider DC home with inhaler Tobacco abuse -aware, cessation encouraged -Nicotine patches HTN -Continue home meds HLD -Continue home meds DVT PPx: Eliquis Diet: HH Code: FULL PCP: Tono Dispo: plan for cardioversion today; follow up with cardiology recs Addendum - Attending - Attending Attestation Date/Time: 05/09/20 1128 I personally evaluated the patient and discussed the management with Dr. Palmer. I agree with the History, Examination, Assessment and Plan documented above with any addition or exceptions noted below.
[2020-05-09] MEDS: Digoxin 0.125 MG TAB PO SCH (07:30)
[2020-05-09] MEDS: Apixaban 5 MG TAB PO SCH ×2 (07:30→23:04)
[2020-05-09] MEDS: Lisinopril 20 MG TAB PO SCH ×2 (07:31→23:04)
--- NOTE | 2020-05-09 09:38 | PQF ---
CLINICAL DOCUMENTATION CLARIFICATION FORM: Dear Dr. Palmer Date: 05/09/2020 Please exercise your independent, professional judgment in responding to the clarification form. Clinical indicators are provided on the bottom of this form for your review. Please check appropriate box(s): DIASTOLIC HEART FAILURE (please specify acuity): [ x ] Acute [ ] Acute on Chronic [ ] Chronic [ ] Other diagnosis [ ] Unable to determine For continuity of documentation, please document condition throughout progress notes and discharge summary. Thank You. CLINICAL INDICATORS - SIGNS / SYMPTOMS / LABS / RESULTS AND LOCATION IN EMR *H&P 05/03 ([facility]): * Chief Complaint: CP, SOB * Increasingly short of breath the past week especially when walking or lying flat, having to sleep in her recliner the past 4 nights. * Swelling in her LE that she noticed a couple days ago. * One episode of chest pain for about half the day a week ago which felt like an elephant sitting on her chest * Lungs: decreased breath sounds bilaterally. * Possible new onset Heart Failure * CXR: pulmonary vascular congestion, b/l pleural effusion * BNP 677, trop 0.024>0.037 *Consultation 05/06 ([facility]): * Diastolic heart failure * Presenting with diastolic heart failure associated with atrial fibrillation and rapid rates. * Her heart failure symptoms have resolved. RISK FACTORS / RESULTS AND LOCATION IN EMR *H&P 05/03 ([facility]): * New onset Afib w/ RVR * HTN TREATMENTS / RESULTS AND LOCATION IN EMR *ED 05/03: Oxygen, Furosemide IV, Cardizem IV *Reports 05/04 ([facility]): Echocardiogram *H&P 05/03 ([facility]): Received 50 mg IV Lasix . Trend trops Raphael I/Os, daily weights 20 mg IV Lasix daily *Consultation Cardiology 05/04 ([facility]) *Consultation Electrophysiology 05/06 ([facility]) Thank you, Cristiana CDS/Broomcorn Seeder Signature: Cristiana Khalil RN, CDS Phone #: [phone] [email or web address] This is a permanent part of the Medical Record [facility]
--- NOTE | 2020-05-09 09:49 | PQF ---
CLINICAL DOCUMENTATION CLARIFICATION FORM: Dear Dr. Palmer Date: 05/09/2020 Please exercise your independent, professional judgment in responding to the clarification form. Clinical indicators are provided on the bottom of this form for your review. Please check appropriate box(s): [ ] COPD with acute exacerbation [ x ] COPD without acute exacerbation [ ] Other diagnosis [ ] Unable to determine In addition, please specify: Present on Admission (POA): [ x ] Yes [ ] No [ ] Unable to determine For continuity of documentation, please document condition throughout progress notes and discharge summary. Thank You. CLINICAL INDICATORS - SIGNS / SYMPTOMS / LABS / RESULTS AND LOCATION IN EMR *H&P 05/03 ([facility]): * Complaining of SOB for past week * COPD * Patient reports using inhalers in the past * Wheezing on exam * Duonebs PRN *PN 05/04 ([facility]): Not on home O2, wean off of O2 as able, decreased to 1 L this morning. *PN 05/09 ([facility]): * Yesterday's wheezing improved with Duoneb * No longer requiring NC * Duonebs ely q6 hr * Consider DC home with inhaler. RISK FACTORS / RESULTS AND LOCATION IN EMR *H&P 05/03 ([facility]): PPD for 70 years TREATMENTS / RESULTS AND LOCATION IN EMR *ED 05/03: Oxygen *H&P 05/03 ([facility]): Duonebs PRN *PN 05/09 ([facility]): Duonebs ely q6 hr Thank you, Cristiana CDS/Civil Engineering Specialist Signature: Cristiana Khalil RN, CDS Phone #: [phone] [email or web address] This is a permanent part of the Medical Record [facility]
[2020-05-09] MEDS ORDERED: PROPOFOL 20 ML ONE (11:34)
--- NOTE | 2020-05-09 17:08 | PDOC.EP ---
- Subjective Date: 05/09/20 Time: 17:06 Interval History: atrial fibrillation management. No onset AF with RVR. ANNIE/CV attempted this AM but failed to convert. Resting in chair reading. No distress. eager to go home. No severe/obvious symptoms with rate controlled AF - Review of Systems Constitutional: denies: chills, fever, malaise, sweats, weakness Respiratory: denies: cough, dry, hemoptysis, pleuritic pain, shortness of brandee ath, SOB with excertion, sputum, wheezing, other Cardiology: denies: chest pain, edema, heart racing, light headedness, orthopnea, paroxysmal noc. dyspnea, palpitations, passing out, pleuritic pain, pressure, swelling Gastrointestinal: denies: abdominal pain, constipation, diarrhea, hematochezia, melena, nausea, vomitting Musculoskeletal: denies: unstable gait, falls, neck pain, shoulder pain, arm pain, hand pain, leg pain, foot pain - Objective Allergies/Adverse Reactions: Allergies Allergy/AdvReac Type Severity Reaction Status Date / Time No Known Drug Allergies Allergy Verified 05/04/20 01:55 Current Medications Acetaminophen (Acetaminophen 325 Mg Tab) 650 mg PO Q4H PRN PRN Reason: Headache/Fever/Mild Pain (1-3) Acetaminophen (Acetaminophen 650 Mg Suppository) 650 mg OK Q4H PRN PRN Reason: Headache/Fever/Mild Pain (1-3) Albuterol/Ipratropium (Ipratropium/Albuterol Sulfate 3 Ml Neb) 3 ml NEB M2ED-PD [facility] Last Admin: 05/09/20 14:21 Dose: 3 ml Documented by: Apixaban (Apixaban 5 Mg Tab) 5 mg PO BID [facility] Last Admin: 05/09/20 07:30 Dose: 5 mg Documented by: Atorvastatin Calcium (Atorvastatin Calcium 20 Mg Tab) 20 mg PO HS [facility] Last Admin: 05/08/20 20:31 Dose: 20 mg Documented by: Digoxin (Digoxin 0.125 Mg Tab) 0.125 mg PO DAILY [facility] Last Admin: 05/09/20 07:30 Dose: 0.125 mg Documented by: Diltiazem HCl (Diltiazem Hcl Cd 240 Mg Capsule) 240 mg PO DAILY [facility] Last Admin: 05/09/20 07:31 Dose: 240 mg Documented by: Flecainide Acetate (Flecainide 50 Mg Tab) 50 mg PO Q12HR [facility] Lisinopril (Lisinopril 20 Mg Tab) 20 mg PO BID [facility] Last Admin: 05/09/20 07:31 Dose: 20 mg Documented by: Nicotine (Nicotine 14 Mg Patch) 14 mg TD Q24HR [facility] Last Admin: 05/08/20 20:31 Dose: 14 mg Documented by: Ondansetron HCl (Ondansetron Odt 4 Mg Tab) 4 mg PO Q6H PRN PRN Reason: Nausea/Vomiting Ondansetron HCl (Ondansetron Pf 4 Mg/2 Ml Vial) 4 mg IVP Q6H PRN PRN Reason: Nausea/Vomiting Sodium Chloride (Flush - Normal Saline 10 Ml Syringe) 10 ml IVF PRN PRN PRN Reason: Saline Flush Vital Signs & Weight: Vital Signs Temp Pulse Resp BP BP Pulse Ox 05/09/20 15:58 97.7 F 83 14 123/56 L 97 05/09/20 14:21 81 18 95 05/09/20 13:15 97.6 F 78 19 136/66 95 05/09/20 07:22 97.3 F L 83 20 144/67 H 95 05/09/20 07:10 91 20 98 Weight 150 lb 1.6 oz I/O: I/O 05/08/20 05/09/20 05/10/20 06:59 06:59 06:59 Intake Total 470 Output Total 1300 Balance -830 - Quality Measures CV meds: Eliquis: Yes - Physical Exam General: alert & oriented x3, appears well, no apparent distress, speech clear, affect appropriate HEENT: mucus membranes moist, normocephaly Neck: supple neck, midline trachea, no JVD/HJR, no masses, no bruit, no l ymphadenopathy, no thromegaly Cardiology: regular rate, PMI nondisplaced, irregularly irregular Lungs: clear to auscultation, normal breath sounds, no wheeze, rales, rhonchi Neurology: cranial nerve 2-12 intact, grossly intact, no lateralizing findings - Chadsvasc Risk factors Age >75: 2 Stroke/TIA/thrombo-embolism: 2 Female: 1 Risk Score: 5 - Labs Result Diagrams: 05/09/20 03:59 05/09/20 03:59 - EKG Interpretation EKG Method: Telemetry EKG shows: Atrial fibrillation - Assessment/Plan Assessment/Plan: 1. Atrial fibrillation - new onset - RVR - ANNIE/CV failed 05/09/2020. But no GAMALIEL thrombus noted - started flecainide 50mg BID 2. OAC with eliquis 5mg BID 3. Diastolic HF -LVEF 55-60% Started flecainide 50mg BID, still on Diltiazem 240mg Daily, digoxin 125mcg daily., and OAC/eliquis 5mg BID. rate controlled and stable. Can DC and recommend OP cardioversion in 1 week with cardiology, after flecainide is adequately in her system. termination clerk, consider watchman implant if there is a contraindication to nursing home OAC. If able to tolerate OAC, could discuss PVAI if refractory to flecainide. Alternate medication options could be Multaq and amiodarone. If there is any concern for ischemic disease I would stop flecainide and begin multaq.
[2020-05-09] MEDS: Flecainide 50 MG TAB PO SCH (23:04)
[2020-05-09] MEDS: Nicotine 14 MG PATCH TD SCH (23:04)
[2020-05-09] MEDS: Atorvastatin Calcium 20 MG TAB PO SCH (23:04)
[2020-05-10 05:16] LABS: ALT (SGPT) 43 U/L (8-55); AST (SGOT) 50 U/L (5-34); Albumin 3.4 g/dL (3.4-4.8); Alkaline Phosphatase 70 U/L (40-110); Anion Gap 17 mmol/L (10-20); BUN (Urea Nitrogen) 19 mg/dL (9.8-20.1); Bilirubin, Total 0.5 mg/dL (0.2-1.2); Calc. Creatinine Clearance 41 mL/min (70-130); Calcium 9.1 mg/dL (7.8-10.44); Carbon Dioxide 17 mmol/L (23-31); Chloride 113 mmol/L (98-107); Estimated GFR-MDRD 47; Globulin 3.6 g/dL (2.4-3.5); Glucose 82 mg/dL (83-110); Potassium 5.3 mmol/L (3.5-5.1); Sodium 142 mmol/L (136-145)
[2020-05-10 06:46] LABS: #Eosinphils 0.2 thou/uL (0.0-0.7); #Lymphocytes 0.7 thou/uL (1.20-3.40); #Monocytes 0.7 thou/uL (0.11-0.59); #Neutrophils 5.2 thou/uL (1.40-6.50); %Basophils 0.3 % (0.0-1.0); %Eosinophils 2.7 % (0.0-10.0); %Lymphocytes 9.8 % (21.0-51.0); %Monocytes 10.7 % (0.0-10.0); %Neutrophils 76.4 % (42.0-75.0); Hemoglobin 14.1 g/dL (12.0-16.0); Mean Corpuscular HGB CONC 32.5 g/dL (32.0-36.0); Mean Corpuscular Hemoglobin 29.1 pg (27.0-31.0); Mean Corpuscular Volume 89.6 fL (78.0-98.0); Mean Platelet Volume 7.8 fL (7.4-10.4); Platelet Count 276 thou/uL (130-400); RBC Distribution Width 12.3 % (11.5-14.5); Red Blood Cell (RBC) Count 4.85 mill/uL (4.20-5.40); White Blood Cell (WBC) Count 6.9 thou/uL (4.8-10.8)
--- NOTE | 2020-05-10 06:51 | OP ---
DATE OF PROCEDURE: 05/09/2020 PREPROCEDURE DIAGNOSIS: Atrial fibrillation. POSTPROCEDURE DIAGNOSIS: Sinus rhythm. PROCEDURE PERFORMED: Synchronized cardioversion. DESCRIPTION OF PROCEDURE: Ms. Lebron underwent conscious sedation with propofol. Prior to the procedure, I discussed the procedure in full detail with Ms. Lebron. Risks include, but not limited to the following: Stroke, need for repeat cardioversion, failed cardioversion as well as burning of skin. All questions answered. Given the above, the patient agreed to proceed with the above procedure. Conscious sedation performed with propofol. The patient was cardioverted successfully x1 with 150 joules. IMPRESSION: Successful synchronized cardioversion. ADDENDUM: After the procedure and after the patient was waking up, the patient did go back into atrial fibrillation. She will likely need to be loaded with flecainide. May continue rate control for now. Job ID: [id number]
--- NOTE | 2020-05-10 06:51 | OP ---
DATE OF PROCEDURE: 05/09/2020 PREPROCEDURE DIAGNOSIS: Atrial fibrillation. POSTPROCEDURE DIAGNOSIS: Sinus rhythm. PROCEDURE PERFORMED: ANNIE. INDICATIONS FOR PROCEDURE: The patient was consented for the procedure. I discussed the procedure in full detail with Ms. Lebron. Risks include but not limited to the following: Damage to teeth, mouth, back of throat, damage to esophagus, as well as reaction to medication. All questions were answered. Given the above, the patient agreed to proceed with above procedure. DESCRIPTION OF PROCEDURE: Conscious sedation was performed with anesthesia and propofol. The probe was passed easily in the esophagus. FINDINGS: Left atrial appendage well visualized. No masses or thrombus present. The mitral valve does appear thickened. There is [id number] MR. There does appear to be prolapse of the anterior mitral leaflet. IMPRESSION: No thrombus present in left atrial appendage. Job ID: [id number]
--- NOTE | 2020-05-10 07:02 | PDOC.FM ---
- Subjective Subjective: Patient sitting up in chair this morning receiving Duonebs. Eager to go home. Feels "fine". No CP, SOB, dizziness. Per tele, patient had 10 beats of Vtach this morning, asymptomatic. Otherwise, in Afib/flutter rate 80-100s. - Objective MAR Reviewed: Yes Vital Signs & Weight: Vital Signs (12 hours) Temp Pulse Resp BP BP Pulse Ox 05/10/20 04:00 97.8 F 87 22 H 129/66 94 L 05/10/20 00:51 85 16 97 05/09/20 22:58 98.5 F 101 H 16 128/68 92 L 05/09/20 20:00 92 L 05/09/20 19:07 16 Weight Weight 66.633 kg I&O: 05/09/20 05/10/20 05/11/20 06:59 06:59 06:59 Intake Total 820 Output Total 2450 Balance -1630 Result Diagrams: 05/10/20 06:36 05/10/20 04:03 Phys Exam - Physical Examination Constitutional: NAD HEENT: moist MMs Neck: full ROM Respiratory: no wheezing, clear to auscultation bilateral Afib Gastrointestinal: soft Musculoskeletal: pulses present diffuse trace edema b/l LE Neurological: moves all 4 limbs Psychiatric: A&O x 3 Skin: normal turgor Dx/Plan - Plan Plan: New onset Afib w/RVR -HR 141 in [place] ED, 89 in our ED -cardizem gtt stopped 05/05 at 1030, transitioned to PO, increased to 240 mg of Dilt, Flecanide 50mg BID added 05/09 -transitioned to Eliquis 5mg BID -Cardiology consulted, appreciate the recs: - due to continued increase in HR despite being on 240 mg of Dilt, will start pt on Digoxin; Pt will be receiving loading dose of 0.5 mg this am, followed by 0.25 mg later today, and then 0.125 mg daily starting 05/09 -Flecanide 50mg BID, plan for OP cardioversion in 1 week -ANNIE 05/09: no thrombus in L appendage, moderate to severe MR, prolapse of anterior mitral leaflet -EP consulted: "could be candidate for cardioversion after 1 month of anticoagulation, will likely need antiarrhythmic " -[id number]: 8 (age, gender, remote history of stroke, HTN) -plan for cardioversion 05/09 at noon: unsuccesful -TSH normal Nonsustained Vtach -10 beats Vtach morning of 05/10 -asymptomatic -follow up with cardiology recs Possible new onset Heart Failure -symptoms resolved -s/p lasix, holding due to CEFERINO -CXR: pulmonary vascular congestion, b/l pleural effusion -BNP 677, trop 0.024>0.037>.037 -Ddimer 1.19, consider CTA -Strict I/Os, daily weights -Cardiology consulted, appreciate the recs -echo: EF 55-60%, diastolic function could not be assessed. LA severely dilated, moderate to severe MR Hyperkalemia -aware, recheck BMP -patient on Duonebs -continue to monitor CEFERINO, resolved -likely 2/2 lasix, iatrogenic -lasix held, patient appears euvolemic -continue to monitor while inpatient and monitor outpatient COPD -Reported use of inhalers in the past -not requiring NC -Duonebs ely q6 hr -consider DC home with inhaler Tobacco abuse -aware, cessation encouraged -Nicotine patches HTN -Continue home meds HLD -Continue home meds DVT PPx: Eliquis Diet: HH Code: FULL PCP: Tono Dispo: follow up with cardiology recs Addendum - Attending - Attending Attestation Date/Time: 05/10/20 1111 I personally evaluated the patient and discussed the management with Dr. Palmer. I agree with the History, Examination, Assessment and Plan documented above with any addition or exceptions noted below. Patient overall stable. Med changes per Cardiology. Possible heart cath tomorrow per their unofficial recs.
[2020-05-10] MEDS: Digoxin 0.125 MG TAB PO SCH (08:45)
[2020-05-10] MEDS: Lisinopril 20 MG TAB PO SCH ×2 (08:45→21:28)
[2020-05-10] MEDS: Apixaban 5 MG TAB PO SCH ×2 (08:46→21:29)
[2020-05-10] MEDS: Flecainide 50 MG TAB PO SCH (08:46)
[2020-05-10] MEDS: Polyethylene Glycol 3350 17 GM Packet PO SCH (08:52)
[2020-05-10] MEDS: Dronedarone HCl 400 MG TAB PO SCH (16:22)
[2020-05-10] MEDS ORDERED: Dronedarone HCl 400 MG TAB PO SCH (17:00)
--- NOTE | 2020-05-10 17:16 | PDOC.EP ---
- Subjective Date: 05/10/20 Time: 08:00 Interval History: no symptomatic events overnight. Patient feels well she remains eager to go home - Review of Systems Constitutional: denies: chills, fever, malaise, weakness Respiratory: denies: cough, pleuritic pain, shortness of breath, SOB with excertion, wheezing Cardiology: denies: chest pain, heart racing, light headedness, passing out Gastrointestinal: denies: abdominal pain, nausea, vomitting Musculoskeletal: denies: unstable gait, leg pain, foot pain - Objective Allergies/Adverse Reactions: Allergies Allergy/AdvReac Type Severity Reaction Status Date / Time No Known Drug Allergies Allergy Verified 05/04/20 01:55 Current Medications Acetaminophen (Acetaminophen 325 Mg Tab) 650 mg PO Q4H PRN PRN Reason: Headache/Fever/Mild Pain (1-3) Acetaminophen (Acetaminophen 650 Mg Suppository) 650 mg UT Q4H PRN PRN Reason: Headache/Fever/Mild Pain (1-3) Albuterol/Ipratropium (Ipratropium/Albuterol Sulfate 3 Ml Neb) 3 ml NEB [id number] [facility] Last Admin: 05/10/20 14:21 Dose: 3 ml Documented by: Apixaban (Apixaban 5 Mg Tab) 5 mg PO BID [facility] Last Admin: 05/10/20 08:46 Dose: 5 mg Documented by: Atorvastatin Calcium (Atorvastatin Calcium 20 Mg Tab) 20 mg PO HS [facility] Last Admin: 05/09/20 23:04 Dose: 20 mg Documented by: Digoxin (Digoxin 0.125 Mg Tab) 0.125 mg PO DAILY [facility] [place] Last Admin: 05/10/20 08:45 Dose: 0.125 mg Documented by: Diltiazem HCl (Diltiazem Hcl Cd 240 Mg Capsule) 240 mg PO DAILY [facility] Last Admin: 05/10/20 08:44 Dose: 240 mg Documented by: Dronedarone (Dronedarone Hcl 400 Mg Tab) 400 mg PO BID-[facility] Last Admin: 05/10/20 16:22 Dose: 400 mg Documented by: Lisinopril (Lisinopril 20 Mg Tab) 20 mg PO BID [facility] Last Admin: 05/10/20 08:45 Dose: 20 mg Documented by: Nicotine (Nicotine 14 Mg Patch) 14 mg TD Q24HR [facility] Last Admin: 05/09/20 23:04 Dose: 14 mg Documented by: Ondansetron HCl (Ondansetron Odt 4 Mg Tab) 4 mg PO Q6H PRN PRN Reason: Nausea/Vomiting Ondansetron HCl (Ondansetron Pf 4 Mg/2 Ml Vial) 4 mg IVP Q6H PRN PRN Reason: Nausea/Vomiting Polyethylene Glycol (Polyethylene Glycol 3350 17 Gm Packet) 17 gm PO DAILY [facility] Last Admin: 05/10/20 08:52 Dose: Not Given Documented by: Sodium Chloride (Flush - Normal Saline 10 Ml Syringe) 10 ml IVF PRN PRN PRN Reason: Saline Flush Vital Signs & Weight: Vital Signs Temp Pulse Pulse Pulse Resp BP BP 05/10/20 15:58 97.9 F 73 15 05/10/20 14:21 65 18 05/10/20 12:03 97.8 F 83 17 05/10/20 10:24 81 96 136/61 05/10/20 08:45 87 131/77 05/10/20 08:44 87 05/10/20 07:39 97.8 F 87 16 05/10/20 07:18 85 18 BP BP BP Pulse Ox Pulse Ox Pulse Ox 05/10/20 15:58 123/60 96 05/10/20 14:21 95 05/10/20 12:03 114/59 L 94 L 05/10/20 10:24 136/64 96 96 05/10/20 08:45 05/10/20 08:44 05/10/20 07:39 131/77 94 L 05/10/20 07:18 97 Weight 146 lb 14.4 oz I/O: I/O 05/09/20 05/10/20 05/11/20 06:59 06:59 06:59 Intake Total 820 480 Output Total 2450 Balance -1630 480 - Quality Measures CV meds: Eliquis: Yes - Physical Exam General: alert & oriented x3, appears well, speech clear HEENT: mucus membranes moist, normocephaly, EOMI Neck: supple neck, midline trachea, no lymphadenopathy Cardiology: regular rate, irregularly irregular Lungs: clear to auscultation, normal breath sounds, no wheeze, rales, rhonchi Neurology: cranial nerve 2-12 intact, grossly intact, no lateralizing findings Abdomen: unremarkable, active bowel sounds, no pulsations/bruits - Chadsvasc Risk factors Age >75: 2 Female: 1 Risk Score: 3 - Labs Result Diagrams: 05/10/20 06:36 05/10/20 04:03 - EKG Interpretation EKG Method: Telemetry EKG shows: Atrial fibrillation - Assessment/Plan Assessment/Plan: 1. Atrial fibrillation - new onset - RVR - ANNIE/CV failed 05/09/2020. But no GAMALIEL thrombus noted - started flecainide 50mg BID--> NSVT overnight after 1 dose--> DC flecainide -05/10 PM 2. OAC with eliquis 5mg BID 3. Diastolic HF -LVEF 55-60% 4. NSVT Flecainide stopped. only 1 dose received. Starting Multaq 400mg PO BID tonight. Possible stress test with cardiology due to NSVT? Starting beta suzanne therapy, may need to back off CCB of hypotensive
[2020-05-10] MEDS ORDERED: Communication Order-Pharmacy FS SCH (17:30)
--- NOTE | 2020-05-10 17:49 | PRG ---
DATE OF SERVICE: 05/10/2020 SUBJECTIVE: Ms. Lebron is doing well. No current complaints. She continues to be in atrial fibrillation. She failed cardioversion yesterday. She did have 10 beats of nonsustained VT, asymptomatic overnight. She did have previous history of underlying tobacco history. OBJECTIVE: VITAL SIGNS: Blood pressure 120/60, pulse 73, temperature 97.9. LUNGS: Clear to auscultation. HEART: Irregularly irregular. ABDOMEN: Soft, nontender, nondistended. EXTREMITIES: No edema. PERTINENT LABORATORY DATA: Potassium 5.3. IMPRESSION: 1. Nonsustained ventricular tachycardia. 2. Atrial fibrillation. 3. [id number] mitral regurgitation. RECOMMENDATIONS: Several options Ms. Lebron. I discussed proceeding with a noninvasive stress study versus coronary angiography versus medical therapy. After discussing all the above with her granddaughter in the room, we decided to proceed with coronary angiography. She did not take her Eliquis this morning. We will try and proceed with a radial approach tomorrow. If this fails, we then proceed with a right groin approach on . I discussed procedure in full detail with Ms. Lebron. Risks included, not limited to the following: I discussed the procedure in full detail with the patient. The risks of the procedure were also discussed. The risks of the procedure include but are not limited to the following: , stroke, UT, need for emergency surgery, loss of limb, bleeding, and infection, as well as a reaction to the dye causing kidney failure and needing long-term dialysis. I also discussed the risks of PCI to include all of the above including coronary dissection and perforation in addition to acute stent thrombosis and restenosis. All questions about the procedure were answered. Given the above, the patient agreed to proceed with coronary angiography and possible PCI. All questions were answered. Given the above, the patient agreed to proceed with procedure. We will proceed with drug-coated stent if needed. There were no contraindications. Job ID: [id number]
[2020-05-10] MEDS: Sodium Chloride 0.9% 1,000 ML IV SCH (18:20)
[2020-05-10] MEDS: Atorvastatin Calcium 20 MG TAB PO SCH (21:29)
[2020-05-10] MEDS: Nicotine 14 MG PATCH TD SCH (21:29)
[2020-05-11] MEDS: Dronedarone HCl 400 MG TAB PO SCH (05:10)
[2020-05-11] MEDS: Digoxin 0.125 MG TAB PO SCH (05:10)
[2020-05-11] MEDS: Lisinopril 20 MG TAB PO SCH (05:10)
[2020-05-11 05:11] LABS: #Eosinphils 0.2 thou/uL (0.0-0.7); #Lymphocytes 0.7 thou/uL (1.20-3.40); #Monocytes 0.5 thou/uL (0.11-0.59); #Neutrophils 4.5 thou/uL (1.40-6.50); %Basophils 0.7 % (0.0-1.0); %Eosinophils 2.8 % (0.0-10.0); %Lymphocytes 11.3 % (21.0-51.0); %Neutrophils 76.2 % (42.0-75.0); ALT (SGPT) 40 U/L (8-55); AST (SGOT) 30 U/L (5-34); Albumin 3.7 g/dL (3.4-4.8); Alkaline Phosphatase 72 U/L (40-110); Anion Gap 13 mmol/L (10-20); BUN (Urea Nitrogen) 22 mg/dL (9.8-20.1); Bilirubin, Total 0.6 mg/dL (0.2-1.2); Calc. Creatinine Clearance 39 mL/min (70-130); Calcium 9.3 mg/dL (7.8-10.44); Carbon Dioxide 21 mmol/L (23-31); Chloride 112 mmol/L (98-107); Estimated GFR-MDRD 45; Glucose 95 mg/dL (83-110); Hemoglobin 14.6 g/dL (12.0-16.0); Mean Corpuscular HGB CONC 31.3 g/dL (32.0-36.0); Mean Corpuscular Hemoglobin 28.5 pg (27.0-31.0); Mean Platelet Volume 7.6 fL (7.4-10.4); Platelet Count 277 thou/uL (130-400); Potassium 4.1 mmol/L (3.5-5.1); Protein, Total 6.7 g/dL (6.0-8.3); RBC Distribution Width 12.6 % (11.5-14.5); Red Blood Cell (RBC) Count 5.12 mill/uL (4.20-5.40); Sodium 142 mmol/L (136-145); White Blood Cell (WBC) Count 5.9 thou/uL (4.8-10.8)
[2020-05-11] MEDS: Sodium Chloride 0.9% 1,000 ML IV SCH (05:11)
--- NOTE | 2020-05-11 06:43 | PDOC.FM ---
- Subjective Subjective: Patient resting comfortably in the chair this morning. Denies CP, SOB. Eager to go home. Planning for coronary angiography and possible PCI and drug coated stent if needed today with cardiology. No acute events as per tele overnight: Afib-aflutter 70-110s - Objective MAR Reviewed: Yes Vital Signs & Weight: Vital Signs (12 hours) Temp Pulse Resp BP BP Pulse Ox 05/11/20 05:10 82 130/65 05/11/20 04:00 98.2 F 82 20 135/61 97 05/11/20 03:24 92 L 05/10/20 23:40 96 05/10/20 21:28 130/65 05/10/20 20:00 98.3 F 89 16 130/65 92 L 05/10/20 19:52 95 05/10/20 19:51 95 Weight Weight 66.633 kg I&O: 05/09/20 05/10/20 05/11/20 06:59 06:59 06:59 Intake Total 820 720 Output Total 2450 Balance -1630 720 Result Diagrams: 05/11/20 10:33 05/11/20 04:25 Phys Exam - Physical Examination Constitutional: NAD HEENT: moist MMs Neck: full ROM Respiratory: no wheezing, clear to auscultation bilateral Cardiovascular: no significant murmur Afib Gastrointestinal: soft Musculoskeletal: no edema, pulses present Neurological: moves all 4 limbs Psychiatric: A&O x 3 Skin: normal turgor Dx/Plan - Plan Plan: New onset Afib w/RVR -HR 141 in [place] ED, 89 in our ED -cardizem gtt stopped 05/05 at 1030, transitioned to PO, increased to 240 mg of Dilt, Flecanide 50mg BID added 05/09-05/10 -transitioned to Eliquis 5mg BID -Cardiology consulted, appreciate the recs: - due to continued increase in HR despite being on 240 mg of Dilt, 0.125 mg Digoxin daily starting 05/09 -Flecanide 50mg BID started, patient had 10 beats NSVT, d/c Flecainide and started on Multaq 400mg BID 05/10 -cardioversion OP in 1 week -ANNIE 05/09: no thrombus in L appendage, moderate to severe MR, prolapse of anterior mitral leaflet -EP consulted appreciate the recs: -Metoprolol XL started 05/11 -[id number]: 8 (age, gender, remote history of stroke, HTN) -plan for cardioversion 05/09 at noon: unsuccesful -TSH normal -coronary angiography and possible PCI and drug coated stent if needed 05/11 Nonsustained Vtach -10 beats Vtach morning of 05/10 -asymptomatic -follow up with cardiology recs, see plan above Possible new onset Heart Failure -symptoms resolved -s/p lasix, holding due to CEFERINO -CXR: pulmonary vascular congestion, b/l pleural effusion -BNP 677, trop 0.024>0.037>.037 -Ddimer 1.19, consider CTA -Strict I/Os, daily weights -Cardiology consulted, appreciate the recs -echo: EF 55-60%, diastolic function could not be assessed. LA severely dilated, moderate to severe MR Hyperkalemia -aware, recheck BMP -patient on Duonebs -continue to monitor CEFERINO, resolved -likely 2/2 lasix, iatrogenic -lasix held, patient appears euvolemic -continue to monitor while inpatient and monitor outpatient COPD -Reported use of inhalers in the past -not requiring NC -Duonebs ely q6 hr -consider DC home with inhaler Tobacco abuse -aware, cessation encouraged -Nicotine patches HTN -Continue home meds HLD -Continue home meds DVT PPx: Tiana, held for procedure Diet: NPO for procedure today Code: FULL PCP: Tono Dispo: follow up with cardiology recs Addendum - Attending - Attending Attestation Date/Time: 05/11/20 1056 I personally evaluated the patient and discussed the management with Dr. Palmer. I agree with the History, Examination, Assessment and Plan documented above with any addition or exceptions noted below.
[2020-05-11] MEDS ORDERED: Nitroglycerin 100MG/250ML BOT 250 ML ONE (08:45)
[2020-05-11] MEDS ORDERED: Heparin 10,000 UNITS/ 10 ML VIAL ONE (08:45)
[2020-05-11] MEDS ORDERED: Verapamil 5 MG/2 ML VIAL ONE (08:45)
[2020-05-11] MEDS ORDERED: Nitroglycerin 0.4 MG TAB (25 Tab Bottle) SL PRN (09:35)
[2020-05-11] MEDS ORDERED: Acetaminophen/Codeine 30-300mg Tablet PO PRN ×2 (09:35)
[2020-05-11] MEDS ORDERED: Sodium Chloride 0.9% 200 ML IV PRN (09:35)
[2020-05-11] MEDS: Polyethylene Glycol 3350 17 GM Packet PO SCH (09:44)
[2020-05-11] MEDS: Apixaban 5 MG TAB PO SCH (09:44)
[2020-05-11] MEDS ORDERED: Sodium Chloride 0.9% 1,000 ML IV SCH (09:45)
[2020-05-11] MEDS ORDERED: Iopamidol 370 76% 100 ML VIAL ONE (10:39)
[2020-05-11 10:40] LABS: Hemoglobin 14.5 g/dL (12.0-16.0); Platelet Count 304 thou/uL (130-400)
--- NOTE | 2020-05-11 12:37 | PDOC.EP ---
- Subjective Date: 05/11/20 Time: 08:00 Interval History: going for [facility] this AM. No new complaints overnight - Review of Systems Constitutional: denies: chills, fever, weakness Respiratory: denies: cough, pleuritic pain, shortness of breath, wheezing Cardiology: denies: chest pain, edema, heart racing, light headedness, palpitations, passing out Gastrointestinal: denies: abdominal pain, constipation, diarrhea, vomitting Musculoskeletal: denies: unstable gait, falls, leg pain - Objective Allergies/Adverse Reactions: Allergies Allergy/AdvReac Type Severity Reaction Status Date / Time No Known Drug Allergies Allergy Verified 05/04/20 01:55 Current Medications Acetaminophen (Acetaminophen 325 Mg Tab) 650 mg PO Q4H PRN PRN Reason: Headache/Fever/Mild Pain (1-3) Acetaminophen (Acetaminophen 650 Mg Suppository) 650 mg MD Q4H PRN PRN Reason: Headache/Fever/Mild Pain (1-3) Acetaminophen/Codeine Phosphate (Acetaminophen/Codeine 30-300mg Tablet) 1 tab PO Q4H PRN PRN Reason: Mild Pain (1-3) Acetaminophen/Codeine Phosphate (Acetaminophen/Codeine 30-300mg Tablet) 2 tab PO Q4H PRN PRN Reason: Moderate Pain (4-6) Albuterol/Ipratropium (Ipratropium/Albuterol Sulfate 3 Ml Neb) 3 ml NEB [id number] [facility] Last Admin: 05/11/20 12:18 Dose: 3 ml Documented by: Atorvastatin Calcium (Atorvastatin Calcium 20 Mg Tab) 20 mg PO HS [facility] Last Admin: 05/10/20 21:29 Dose: 20 mg Documented by: Digoxin (Digoxin 0.125 Mg Tab) 0.125 mg PO DAILY [facility] Last Admin: 05/11/20 05:10 Dose: 0.125 mg Documented by: Diltiazem HCl (Diltiazem Cd 120 Mg Cap) 180 mg PO DAILY [facility] Dronedarone (Dronedarone Hcl 400 Mg Tab) 400 mg PO BID-[facility] Last Admin: 05/11/20 05:10 Dose: 400 mg Documented by: Sodium Chloride (Normal Saline 0.9%) 200 mls @ 0 mls/hr IV ONE PRN PRN Reason: SBP < 90 Stop: 05/11/20 21:00 Sodium Chloride (Normal Saline 0.9%) 1,000 mls @ 125 mls/hr IV .Q8H [facility] Stop: 05/11/20 13:46 Last Admin: 05/11/20 09:46 Dose: 1,000 mls Documented by: Lisinopril (Lisinopril 20 Mg Tab) 20 mg PO BID [facility] Last Admin: 05/11/20 05:10 Dose: 20 mg Documented by: Metoprolol Succinate (Metoprolol Succinate Xl 25 Mg Tab) 25 mg PO DAILY [facility] Last Admin: 05/11/20 05:11 Dose: 25 mg Documented by: Nicotine (Nicotine 14 Mg Patch) 14 mg TD Q24HR [facility] Last Admin: 05/10/20 21:29 Dose: 14 mg Documented by: Nitroglycerin (Nitroglycerin 0.4 Mg Tab (25 Tab Bottle)) 0.4 mg SL Q5MIN PRN PRN Reason: Chest Pain Ondansetron HCl (Ondansetron Odt 4 Mg Tab) 4 mg PO Q6H PRN PRN Reason: Nausea/Vomiting Ondansetron HCl (Ondansetron Pf 4 Mg/2 Ml Vial) 4 mg IVP Q6H PRN PRN Reason: Nausea/Vomiting Polyethylene Glycol (Polyethylene Glycol 3350 17 Gm Packet) 17 gm PO DAILY [facility] Last Admin: 05/11/20 09:44 Dose: Not Given Documented by: Sodium Chloride (Flush - Normal Saline 10 Ml Syringe) 10 ml IVF PRN PRN PRN Reason: Saline Flush Vital Signs & Weight: Vital Signs Temp Pulse Resp BP BP Pulse Ox 05/11/20 12:18 60 14 05/11/20 09:35 98.5 F 65 19 136/60 136/60 92 L 05/11/20 08:00 97.9 F 66 19 117/57 L 93 L 05/11/20 05:10 82 130/65 05/11/20 04:00 98.2 F 82 20 135/61 97 05/11/20 03:24 92 L Weight 146 lb 14.4 oz I/O: I/O 05/10/20 05/11/20 05/12/20 06:59 06:59 06:59 Intake Total 820 720 Output Total 2450 Balance -1630 720 - Quality Measures CV meds: Eliquis: Yes - Physical Exam General: alert & oriented x3, appears well, speech clear HEENT: mucus membranes moist, normocephaly, EOMI Neck: supple neck, midline trachea, no JVD/HJR Cardiology: regular rate, PMI nondisplaced, irregularly irregular Lungs: clear to auscultation, normal breath sounds, no wheeze, rales, rhonchi Neurology: cranial nerve 2-12 intact, grossly intact, no lateralizing findings Abdomen: unremarkable, active bowel sounds, no pulsations/bruits Extremities: dry, strong pulses, warm - Chadsvasc Risk factors Hypertension: 1 Age >75: 2 Female: 1 Risk Score: 4 - Labs Result Diagrams: 05/11/20 10:33 05/11/20 10:33 - EKG Interpretation EKG Method: Telemetry EKG shows: Atrial fibrillation - Assessment/Plan Assessment/Plan: 1. Atrial fibrillation - newly found but severe LA dilation on echo (no LA diam recorded) - RVR - ANNIE/CV failed 05/09/2020. But no GAMALIEL thrombus noted - started flecainide 50mg BID--> NSVT overnight after 1 dose--> DC flecainide -05/10 PM started multaq 2. OAC with eliquis 5mg BID 3. Diastolic HF -LVEF 55-60% 4. NSVT -started toprol XL 25mg daily Rate control 60-80 with multaq and toprol. BP dipped slightly overnight- Reduced dilt to 180mg daily. If bradycardic with continued multaq loading, plan to stop digoxin which is not ideal with multaq. Resume eliquis when able.
[2020-05-11 13:28] VITALS: BP 118/59; TEMP 98.6
--- NOTE | 2020-05-12 05:18 | DIS ---
DATE OF ADMISSION: 05/03/2020 DATE OF DISCHARGE: 05/11/2020 ADMITTING ATTENDING: Jett Houston MD. DISCHARGE ATTENDING: Noé Hernández MD. CONSULT: Cardiology, Cardiac Rehab outpatient, Case Management, dietitian, Heart Failure Disease Management, Walking Program. PROCEDURES: electrocardiogram on 05/03, which showed atrial fibrillation with a rate of 90 echo on 05/04/2020, which showed EF at 55% to 60%. Diastolic function could not be assessed. The left atrium is severely dilated. Arunwcqy-kl-uzcxvu mitral regurgitation is present. Aavs-ji-skmybxcb tricuspid regurgitation. Cardioversion and ANNIE were attempted on 05/09/2020, and was unsuccessful; however, it was identified that no thrombus was evident in the cardiac chambers or in the appendages. heart cath on 05/11, which showed moderate coronary artery disease PRIMARY DIAGNOSIS: New onset atrial fibrillation with RVR. SECONDARY DIAGNOSES: 1. Nonsustained ventricular tachycardia. 2. Possible new onset heart failure. 3. Hyperkalemia. 4. Acute kidney injury. 5. Chronic obstructive pulmonary disease. 6. Tobacco abuse. 7. Hypertension. 8. Hyperlipidemia. DISCHARGE MEDICATIONS: 1. Spiriva 18 mcg inhaled daily. 2. Acetaminophen 650 mg p.o. q.4 hours as needed. 3. Cardizem 180 mg p.o. daily. 4. Digoxin 0.125 mg p.o. daily. 5. Multaq 400 mg p.o. b.i.d. with meals. 6. Metoprolol succinate 25 mg p.o. daily. 7. Eliquis 5 mg p.o. b.i.d. 8. Atorvastatin 20 mg p.o. q.h.s. 9. Lisinopril 20 mg p.o. b.i.d. Discontinued Medication: The patient was started on flecainide during hospital stay; however, it was discontinued after 1 day after patient went into nonsustained V-tach that was asymptomatic. HISTORY OF PRESENT ILLNESS/HOSPITAL COURSE: The patient is an 84-year-old female who was transferred to the ED from [place] who had a chief complaint of shortness of breath for the last week and was found to be in AFib with RVR with a heart rate of 141 in clinic. Patient explains she had been feeling increasingly short of breath especially when walking or lying flat, which caused her to have to sleep in her recliner for the past 4 nights prior to admission. She also describes swelling in her lower extremities that she first noticed a couple of days ago. The patient experienced 1 episode of chest pain for about half a day, a week ago prior to admission, when she felt like an elephant was sitting on her chest and has not felt like that since. She endorses an episode of feeling like her heart was racing in the past week but she denies any fever, chills, nausea, vomiting, abdominal pain, or weakness. EKG in the [place] ED revealed AFib with RVR. Patient received 20 of Cardizem and was started on a Cardizem drip. She received 10 mg IV Lasix. When she arrived to our ED, she was on a Cardizem drip at 15 an hour and received an additional 40 mg of Lasix. The patient was started on therapeutic Lovenox and Cardiology was consulted for new onset AFib with RVR. The patient remained in AFib and aflutter throughout her stay. She was mainly rate controlled in the 60s to 80s while on the diltiazem drip and she was able to be weaned off and transitioned to p.o. diltiazem. However, patient started to have runs of AFib with RVR, although her baseline was AFib or aflutter about rate of the 80s. The patient denies any subsequent episodes of chest pain or shortness of breath and the patient was eager to go home. The patient was transitioned from therapeutic Lovenox to p.o. Eliquis. The patient was taken for cardioversion, which was unsuccessful. The patient was then started on digoxin and flecainide as the patient remained in AFib, aflutter with short episodes of AFib with RVR, although all were asymptomatic. After 1 day on flecainide, the patient had 1 episode of asymptomatic nonsustained V-tach of 10 beats after which patient was switched from flecainide and started on Multaq. The patient was taken for a cath, results as described above. Electrophysiology also came to see the patient and started patient on metoprolol on day of discharge with instructions to follow up for possible outpatient cardioversion in a week after discharge. Throughout hospital stay patient remained asymptomatic and vitals were stable with the occasional heart rate in the 100+, the patient was always asymptomatic. DISPOSITION: Stable. DISCHARGE INSTRUCTIONS: 1. Location: Home. 2. Diet: Heart healthy diet. 3. Activity: As tolerated with outpatient cardiac rehab. 4. Followup: Follow up with PCP, Dr. Power within the week, Dr. Roper, Cardiology within the week, and Dr. Alcala, Electrophysiology in 3 to 4 weeks. Job ID: [id number] MTDD
--- NOTE | 2020-05-13 08:26 | EKG ---
Test Reason : POST CARDIOVERSION Blood Pressure : / mmHG Vent. Rate : 081 BPM Atrial Rate : 076 BPM P-R Int : 000 ms QRS Dur : 094 ms QT Int : 406 ms P-R-T Axes : 000 038 -43 degrees QTc Int : 471 ms Atrial fibrillation with premature ventricular or aberrantly conducted complexes Low voltage QRS Nonspecific T wave abnormality , probably digitalis effect Prolonged QT Abnormal ECG When compared with ECG of 05-MAY-2020 14:00, No significant change was found Confirmed by JEFFREY WEEKS MD ([id number]) on 05/13/2020 8:25:54 AM Referred By: DESI Confirmed By:JEFFREY WEEKS MD
== END 2020-05-11 16:00 | disposition home or self-care (01) | DRG 286 ==
LOC: ERS 17:49 → 2NO 18:39
PROVIDERS: ADMIT Family Medicine; ATTEND Family Medicine
PROC: 5A2204Z Restoration of Cardiac Rhythm, Single (ICD-10-PCS; principal; 2020-05-09)
PROC: B24BZZ4 Ultrasonography of Heart with Aorta, Transesophageal (ICD-10-PCS; 2020-05-09)
PROC: 4A023N7 Measurement of Cardiac Sampling and Pressure, Left Heart, Percutaneous Approach (ICD-10-PCS; 2020-05-11)
PROC: B2111ZZ Fluoroscopy of Multiple Coronary Arteries using Low Osmolar Contrast (ICD-10-PCS; 2020-05-11)
PROC: B2151ZZ Fluoroscopy of Left Heart using Low Osmolar Contrast (ICD-10-PCS; 2020-05-11)
DX: I48.19 Other persistent atrial fibrillation (principal); I50.31 Acute diastolic (congestive) heart failure; N17.9 Acute kidney failure, unspecified; Z79.899 Other long term (current) drug therapy; I47.2 Ventricular tachycardia; E87.5 Hyperkalemia; J44.9 Chronic obstructive pulmonary disease, unspecified; F17.210 Nicotine dependence, cigarettes, uncomplicated; I11.0 Hypertensive heart disease with heart failure; E78.5 Hyperlipidemia, unspecified; Z20.828 Contact with and (suspected) exposure to other viral communicable diseases; I25.10 Atherosclerotic heart disease of native coronary artery without angina pectoris; I08.1 Rheumatic disorders of both mitral and tricuspid valves; R04.0 Epistaxis; R00.1 Bradycardia, unspecified; Z86.73 Personal history of transient ischemic attack (TIA), and cerebral infarction without residual deficits; Z85.828 Personal history of other malignant neoplasm of skin; Z90.710 Acquired absence of both cervix and uterus
CPT/HCPCS: 36415; 80053; 80061; 82565; 83735; 84100; 84443; 85014; 85018; 85025; 85049; 85379; 87635; 92960; 93005; 93010; 93306; 93312; 93458; 93798; 94640; 94760; 96365; 96366; 96375; J1644; J1650; J1940; J2704; J3490; J7620; Q9967; U0003

== ENCOUNTER 2020-06-02 15:29 | Inpatient (IN) | payer MEDICARE ==
--- NOTE | 2020-06-02 16:06 | RAD ---
PORTABLE CHEST ONE VIEW: 06/02/20 at 4:01 p.m. HISTORY: Shortness of breath, bradycardia, atrial fibrillation. COMPARISON: 05/03/20 FINDINGS/IMPRESSION: The heart size is borderline. There is mild pulmonary vascular congestion with accompanying small eff usions and adjacent atelectatic changes. No pneumothoraces are seen. POS: AH
[2020-06-02 16:07] LABS: #Eosinphils 0.2 thou/uL (0.0-0.7); #Lymphocytes 1.1 thou/uL (1.20-3.40); #Monocytes 0.9 thou/uL (0.11-0.59); #Neutrophils 5.8 thou/uL (1.40-6.50); %Basophils 0.4 % (0.0-1.0); %Eosinophils 2.2 % (0.0-10.0); %Lymphocytes 13.5 % (21.0-51.0); %Monocytes 11.4 % (0.0-10.0); %Neutrophils 72.5 % (42.0-75.0); Hemoglobin 14.5 g/dL (12.0-16.0); Mean Corpuscular HGB CONC 32.9 g/dL (32.0-36.0); Mean Corpuscular Hemoglobin 28.5 pg (27.0-31.0); Mean Corpuscular Volume 86.7 fL (78.0-98.0); Mean Platelet Volume 8.5 fL (7.4-10.4); Platelet Count 197 thou/uL (130-400); RBC Distribution Width 12.3 % (11.5-14.5)
[2020-06-02] MEDS ORDERED: Atropine Sulfate 1 mg/10 ml Syringe ONE ×3 (16:08→17:12)
[2020-06-02 16:13] LABS: Prothrombin Time 23.5 sec (12.0-14.7)
[2020-06-02 16:14] LABS: PTT 82.4 sec (22.9-36.1)
[2020-06-02 16:27] LABS: ALT (SGPT) 16 U/L (8-55); AST (SGOT) 12 U/L (5-34); Albumin 3.7 g/dL (3.4-4.8); Alkaline Phosphatase 92 U/L (40-110); Anion Gap 13 mmol/L (10-20); BUN (Urea Nitrogen) 18 mg/dL (9.8-20.1); Bilirubin, Total 0.7 mg/dL (0.2-1.2); Calc. Creatinine Clearance 0 mL/min (70-130); Calcium 9.1 mg/dL (7.8-10.44); Carbon Dioxide 24 mmol/L (23-31); Chloride 113 mmol/L (98-107); Globulin 2.8 g/dL (2.4-3.5); Glucose 97 mg/dL (83-110); Magnesium 1.9 mg/dL (1.6-2.6); Potassium 4.4 mmol/L (3.5-5.1); Protein, Total 6.5 g/dL (6.0-8.3); Sodium 146 mmol/L (136-145)
[2020-06-02 16:41] LABS: Digoxin 2.79 ng/mL (0.8-2.0)
[2020-06-02 16:49] LABS: CKMB 2.4 ng/mL (0-6.6)
[2020-06-02] MEDS ORDERED: Aspirin Chewable 81 MG TAB ONE (17:11)
[2020-06-02] MEDS ORDERED: Furosemide 40 MG/4 ML VIAL ONE (17:12)
[2020-06-02] MEDS ORDERED: DOBUTamine 500 mg/250 ml 500 MG in Premix Bag 1 BAG IVPB SCH ×2 (17:30→20:16)
[2020-06-02] MEDS ORDERED: DOBUTamine 500 mg/250 ml 250 ML ONE (17:39)
[2020-06-02] MEDS ORDERED: Acetaminophen 325 MG TAB PO PRN (19:31)
[2020-06-02] MEDS ORDERED: Bisacodyl 5 MG TAB PO PRN (19:31)
[2020-06-02] MEDS ORDERED: Calcium Carbonate 500 MG ChewTAB PO PRN (19:31)
[2020-06-02] MEDS ORDERED: Ondansetron ODT 4 MG TAB PO PRN (19:31)
[2020-06-02] MEDS ORDERED: Senokot S 8.6-50 MG TAB PO PRN (19:31)
[2020-06-02 20:08] LABS: Troponin I 0.029 ng/mL (< 0.028)
--- NOTE | 2020-06-02 22:42 | PDOC.FPRHP ---
- History of Present Illness Chief Complaint: bradycardia History of Present Illness: Pt is a 84 yo F with PMH of HTN, HLD, COPD, stroke in 2007, recently diagnosed Afib and possible HF who presents from her appointment today with theatrical scenic designer Dr. Nielsen where she was found to be bradycardic in the 40s. Patient states her only complaint is that she has been progressively short of breath for the last week or two. She denies CP, palpitations, RODRIGUEZ, changes in vision, abdominal pain, syncope. She has noticed swelling in her legs. She is unable to lay flat and has been sleeping in her recliner at home. Questioning was difficult as patient seemed to be altered. She was oriented x3, but seemed off compared to last admission and per grandson's report. She intermittently answers questions, and stares off into the room. She endorses good compliance with medication and no changes in her diet. She lives at home by herself and has been able to take care of herself without any difficulty. She was recently discharged on 05/11/20 where she was admitted for new onset Afib with RVR and possible HF. She was started on many medications, including Digoxin, Multaq, Eliquis, Metoprolol and Cardizem. Echo showed EF 50-55% but diastolic function could not be assessed. ED Course: 40 mg Lasix, 5x Atropine, ASA - Allergies/Adverse Reactions Allergies Allergy/AdvReac Type Severity Reaction Status Date / Time No Known Drug Allergies Allergy Verified 06/03/20 05:23 - Home Medications Medication Instructions Recorded Confirmed Type Atorvastatin Calcium 20 mg PO HS 05/03/20 05/03/20 History Lisinopril 20 mg PO BID 05/03/20 05/03/20 History Acetaminophen [Tylenol Regular 650 mg PO Q4H PRN tab 05/07/20 Rx Strength] Tiotropium Bandon [Spiriva] 18 mcg IH DAILY 30 Days #1 05/07/20 Rx cap.w.dev Apixaban [Eliquis] 5 mg PO BID #60 tablet 05/11/20 Rx Digoxin [Lanoxin] 0.125 mg PO DAILY #30 tab 05/11/20 Rx Diltiazem CD [Cardizem CD] 180 mg PO DAILY #30 cap 05/11/20 Rx Dronedarone HCl [Multaq] 400 mg PO BID-WM #60 tab 05/11/20 Rx Metoprolol Succinate [Toprol XL] 25 mg PO DAILY #30 tab 05/11/20 Rx - History PMHx: HTN, HLD, stroke in 2008, COPD, recently diagnosed Afib and possible HF PSHx: hysterectomy, skin cancer removal on face FHx: Dad-heart disease, DM. Brother - heart Social: 1/2 PPD for 70 years, denies alcohol, marijuana or drug use - Review of Systems ROS unobtainable: due to mental status (difficult ROS given patient's altered state) General: denies: fever/chills Respiratory: reports: shortness of breath Cardiovascular: reports: edema. denies: chest pain Gastrointestinal: denies: abdominal pain Genitourinary: denies: dysuria Neurological: denies: syncope, weakness - Vital signs BP: 128/80 HR: 87 RR: 20 Tmax: 98.6 Pox: 97% on RA Wt: 78.93 - Physical Exam Constitutional: well developed HEENT: normocephalic and atraumatic, EOMI, grossly normal vision, grossly normal hearing Neck: supple Heart: normal S1/S2, pulses present -Heart: Afib, rate controlled. 1+ edema b/l LE Lungs: no respiratory distress -Lungs: fine crackles appreciated on exam at both lung bases Abdomen: soft, non-tender Musculoskeletal: ROM grossly normal Neurological: no focal deficit Skin: no rash/lesions -Psychiatric: patient would answer intermittently to questioning. She was oriented x3 but appeared altered FMR H&P: Results - Labs Result Diagrams: 06/03/20 04:46 06/03/20 04:46 Lab results: WBC 8.0 thou/uL (4.8-10.8) 06/02/20 15:55 Hgb 14.5 g/dL (12.0-16.0) 06/02/20 15:55 Hct 44.2 % (36.0-47.0) 06/02/20 15:55 MCV 86.7 fL (78.0-98.0) 06/02/20 15:55 Plt Count 197 thou/uL (130-400) 06/02/20 15:55 Neutrophils % 72.5 % (42.0-75.0) 06/02/20 15:55 Sodium 146 mmol/L (136-145) H 06/02/20 15:56 Potassium 4.4 mmol/L (3.5-5.1) 06/02/20 15:56 Chloride 113 mmol/L (98-107) H 06/02/20 15:56 Carbon Dioxide 24 mmol/L (23-31) 06/02/20 15:56 BUN 18 mg/dL (9.8-20.1) 06/02/20 15:56 Creatinine 1.50 mg/dL (0.6-1.1) H 06/02/20 15:56 Glucose 97 mg/dL (83-110) 06/02/20 15:56 Calcium 9.1 mg/dL (7.8-10.44) 06/02/20 15:56 Total Bilirubin 0.7 mg/dL (0.2-1.2) 06/02/20 15:56 AST 12 U/L (5-34) 06/02/20 15:56 ALT 16 U/L (8-55) 06/02/20 15:56 Alkaline Phosphatase 92 U/L (40-110) 06/02/20 15:56 CK-MB (CK-2) 2.4 ng/mL (0-6.6) 06/02/20 15:56 B-Natriuretic Peptide 873.7 pg/mL (0-100) H 06/02/20 15:55 Serum Total Protein 6.5 g/dL (6.0-8.3) 06/02/20 15:56 Albumin 3.7 g/dL (3.4-4.8) 06/02/20 15:56 - EKG Interpretation EKG: Afib, bradycardic FMR H&P: A/P - Plan Bradycardia likely 2/2 polypharmacy -s/p Atropine in ED. On Dobutamine gtt as per cards -cardiology consulted, follow up recs -hold beta blockers and CCB until resolved or as per cards recs -continue to monitor Encephalopathy 2/2 unknown source -oriented x3, but not at baseline -unable to answer all questions, staring off into the room -possibly 2/2 supratheraputic Digoxin level -Brain CT pending -ABG pending -RPR, HIV pending -TSH, electrolytes normal Afib -aware -resume home meds except for noted as above -continuous tele monitoring SOB likely 2/2 Heart Failure -s/p lasix 60mEq total -CXR: small b/l effusions and mild pulmonary vascular congestion -BNP 873, trop .045>.029>.047 -Strict I/Os, daily weights -echo in 05/2020: EF 55-60%, diastolic function could not be assessed. LA severely dilated, moderate to severe MR -consider repeat echo once patient is out of Afib Elevated Digoxin level -Cardiology aware, does not want to start Digibind at this time -on 100mL/hr of IVF to try to dilute Digoxin indeterminate troponin -likely 2/2 demand ischemia during bradycardia -will trend CEFERINO -on 100mL/hr IVF -continue to monitor COPD -not requiring NC -Duonebs PRN q4 hr -continue home inhaler Tobacco abuse -aware, cessation encouraged HTN -Continue home meds -Hyralazine PRN for SBP >170 HLD -Continue home meds DVT PPx: home Eliquis Diet: HH Code: FULL Fluids: 100ml/hr IVF PCP: Tono Dispo: admitted to tele. Anticipated LOS > 48 hours FMR H&P: Upper Level - Plan Date/Time: 06/02/202 ITk PGY3, have evaluated this patient and agree with findings/plan as outlined by wildlife biology internship resident. Pertinent changes/additions are listed here. Lebron 84-year-old female with past medical history of recently diagnosed atrial fibrillation, she was recently diagnosed and discharged from the hospital after being found with A. fib with RVR. She presents from cardiology after being found with heart rate 40. Her grandson is with her who states her mental status is much slower than normal. Patient however denies any symptoms, denies chest pain or palpitations, denies shortness of breath. In the ER cardiology Dr. Carrizales was called and recommended dobutamine drip. On exam her heart rate has now normalized to 80, she is slow with responses and slow speech but does not appear to be in any distress, her heart has irregular rhythm but normal rate and lungs have fine crackles in bilateral lung bases. Labs significant for indeterminate troponin, digoxin level of 2.7, BNP of 873, creatinine of 1.5 A/P Symptomatic Bradycardia A- stable on dobutamine drip. HR improved to 80s but pt still encephalopathic. Dr. Carrizales consulted from ED and decreased drip to 4mcg/kg/hr and giving IVF and lasix to dilute digoxin. Appreciate recommendations P- continue dobutamine gtt -monitor on tele -f/u cards recs Encephalopathy A- Likely from poor perfusion during bradycardia P- Brain CT -RPR -repeat metabolic panel in AM -ABG volume overload, possible HFpEF exacerbation A- fine crackles on exam but no O2 requirement. Echo May 2020 showed EF 55-60%, diastolic function unable to be evaluated. so HFpEF Dx not made with certainty yet. BNP 873. Pt s/p IV lasix in ED. P- monitor I/Os, daily weights -will plan to DC IVF once digoxin lvl is normal Digoxin toxicity A- noted to be 2.7 in ED, pt denies GI Sx and lvl not high enough to cause encephalopathy per cards. P- NS at 100/hr + 20mg IV lasix -recheck lvl in AM and DC fluids once normal indeterminate troponin A- likely 2/2 demand ischemia during bradycardia P- will trend CEFERINO A- Likely from poor perfusion during bradycardia P- will monitor and give IVF COPD -MD aware, home meds and prn duonebs HTN, HLD -stable, continue home meds CODE: FULL, will verify when mental status improves IVF: NS 100 PPx: home eliquis PCP: Tono dispo: inpt, anticapte more than 2 midnights Addendum - Attending - Attending Attestation Date/Time: 06/03/20 1039 I personally evaluated the patient and discussed the management with Dr. Dr. Palmer and Edin last night at time of admission I agree with the History, Examination, Assessment and Plan documented above with any addition or exceptions noted below.
[2020-06-02] MEDS ORDERED: Sodium Chloride 0.9% 1,000 ML IV SCH (22:57)
[2020-06-02 23:45] LABS: Troponin I 0.047 ng/mL (< 0.028)
[2020-06-02] MEDS ORDERED: Lactated Ringer's 1,000 ML IV SCH (23:45)
[2020-06-02] MEDS ORDERED: hydrALAZINE 20 MG/ML VIAL SLOW IVP PRN (23:57)
[2020-06-02 23:59] LABS: Syphilis Antibody Nonreactive (Nonreactive)
[2020-06-03 00:12] LABS: HIV (1/2) Antibody/Antigen Non-Reactive (NonReactive)
[2020-06-03] MEDS: Ipratropium Bromide 2.5 ml Neb NEB SCH ×5 (01:09→23:32)
[2020-06-03] MEDS: Sodium Chloride 0.9% 1,000 ML IV SCH ×3 (02:28→17:29)
[2020-06-03 03:56] LABS: Bacteria/HPF None Seen HPF (None Seen); Bilirubin Negative (Negative); Blood, Urine 2+ (Negative); Clarity Clear (Clear); Glucose, Urine (Dipstick) Normal (Negative); Ketone, Urine Negative (Negative); Leukocyte Negative Leu/uL (Negative); Nitrite Negative (Negative); Protein, Urine (Dipstick) Negative (Neg-Trace); Specific Gravity, Urine 1.008 (1.002-1.036); Squamous Epithelial None Seen HPF (0-3); Urobilinogen Normal mg/dL (Less than 2); WBC/HPF 0-3 HPF (0-3)
[2020-06-03 03:57] LABS: Urine Culture Reflex No No
[2020-06-03 05:02] LABS: #Lymphocytes 0.8 thou/uL (1.20-3.40); #Monocytes 0.8 thou/uL (0.11-0.59); #Neutrophils 9.8 thou/uL (1.40-6.50); %Basophils 0.2 % (0.0-1.0); %Eosinophils 0.1 % (0.0-10.0); %Lymphocytes 7.1 % (21.0-51.0); %Monocytes 6.6 % (0.0-10.0); Mean Corpuscular HGB CONC 33.5 g/dL (32.0-36.0); Mean Corpuscular Hemoglobin 28.9 pg (27.0-31.0); Mean Corpuscular Volume 86.3 fL (78.0-98.0); Mean Platelet Volume 8.8 fL (7.4-10.4); Platelet Count 172 thou/uL (130-400); RBC Distribution Width 12.3 % (11.5-14.5); Red Blood Cell (RBC) Count 4.48 mill/uL (4.20-5.40); White Blood Cell (WBC) Count 11.4 thou/uL (4.8-10.8)
[2020-06-03] MEDS ORDERED: DOBUTamine 500 mg/250 ml 250 ML IVPB SCH (05:15)
[2020-06-03 05:29] LABS: ALT (SGPT) 15 U/L (8-55); AST (SGOT) 14 U/L (5-34); Albumin 3.4 g/dL (3.4-4.8); Alkaline Phosphatase 84 U/L (40-110); Anion Gap 15 mmol/L (10-20); BUN (Urea Nitrogen) 20 mg/dL (9.8-20.1); Bilirubin, Total 0.7 mg/dL (0.2-1.2); Calc. Creatinine Clearance 0 mL/min (70-130); Calcium 8.5 mg/dL (7.8-10.44); Carbon Dioxide 22 mmol/L (23-31); Chloride 112 mmol/L (98-107); Globulin 2.4 g/dL (2.4-3.5); Glucose 125 mg/dL (83-110); Potassium 4.5 mmol/L (3.5-5.1); Protein, Total 5.8 g/dL (6.0-8.3); Sodium 144 mmol/L (136-145)
[2020-06-03 05:36] LABS: Digoxin 3.06 ng/mL (0.8-2.0)
[2020-06-03 06:22] LABS: SARS-CoV-2 MS2 Positive; SARS-CoV-2 N Gene Negative; SARS-CoV-2 S Gene Negative; SARS-CoV-2 by NAA Not Detected (NotDetected); SARS-CoV-2 orf1ab Negative
--- NOTE | 2020-06-03 06:52 | PDOC.FM ---
- Subjective Subjective: Patient reports she is feeling slightly better this morning. She says she never really recovered from last hospitalization and feels like she is just "not getting better." She is breathing better this morning. - Objective Vital Signs & Weight: Vital Signs (12 hours) Pulse Resp Pulse Ox 06/03/20 06:44 95 06/03/20 06:42 70 16 95 06/03/20 01:10 94 L 06/03/20 01:09 94 L Result Diagrams: 06/03/20 04:46 06/03/20 04:46 EKG Reviewed by me: Yes (tele: Afib) Phys Exam - Physical Examination Constitutional: NAD HEENT: moist MMs Neck: full ROM Respiratory: no wheezing, clear to auscultation bilateral Cardiovascular: RRR, no significant murmur Gastrointestinal: soft, non-tender Musculoskeletal: pulses present, edema present Neurological: non-focal, moves all 4 limbs Psychiatric: normal affect, A&O x 3 Skin: no rash Dx/Plan - Plan Plan: Bradycardia likely 2/2 polypharmacy -s/p Atropine in ED. On Dobutamine gtt as per cards -cardiology consulted, follow up recs -hold beta blockers and CCB until resolved or as per cards recs -continue to monitor Encephalopathy 2/2 unknown source -oriented x3, but not at baseline -On presentation was unable to answer all questions, staring off into the room. Seems possibly more oriented this morning though I do not know what she was like when she arrived. She was conversing easily, asked for help drinking water and asked me to grab her purse from across the room to get her chapstick. -possibly 2/2 supratheraputic Digoxin level -Brain CT pending -RPR, HIV negative -TSH, electrolytes normal Afib -aware -resume home meds except for noted as above -continuous tele monitoring SOB likely 2/2 Heart Failure -s/p lasix 60mEq total -CXR: small b/l effusions and mild pulmonary vascular congestion -BNP 873, trop .045>.029>.047 -Strict I/Os, daily weights -echo in 05/2020: EF 55-60%, diastolic function could not be assessed. LA severely dilated, moderate to severe MR -ECHO pending Elevated Digoxin level - 2.79, 3.06 -Cardiology aware, does not want to start Digibind at this time -on 100mL/hr of IVF to try to dilute Digoxin -Repeat this AM Indeterminate troponin -0.045, 0.029, 0.047 -likely 2/2 demand ischemia during bradycardia CEFERINO -Cr 1.5, 1.97 -Continue 100mL/hr IVF -continue to monitor COPD -not requiring NC -Duonebs PRN q4 hr -continue home inhaler Tobacco abuse -aware, cessation encouraged HTN -Continue home meds -Hyralazine PRN for SBP >170 HLD -Continue home meds DVT PPx: home Eliquis Diet: HH Code: FULL Fluids: 100ml/hr IVF PCP: Tono Dispo: Continue diuresis. Will continue IVF per cardiology to dilute digoxin l cristi. Follow cardiology recs. Addendum - Attending - Attending Attestation Date/Time: 06/03/20 9337 I personally evaluated the patient and discussed the management with the team. I agree with the History, Examination, Assessment and Plan documented above with any addition or exceptions noted below. She seems to have met criteria for digibind with symptomatic bradycardia but cards preferred above management. Will defer to their expertise.
[2020-06-03 07:03] VITALS: BMI 26.9
--- NOTE | 2020-06-03 08:59 | CT ---
CT HEAD WITHOUT IV CONTRAST COMPARISON: 02/20/2008 HISTORY: Altered mental status. TECHNIQUE: Axial CT imaging at 5 mm intervals from vertex through skull base without contrast FINDINGS: There is decreased attenuation in the periventricular white matter which is nonspecific but likely re flective of chronic small vessel ischemic changes. Chronic small vessel ischemic changes have progressed compared to study in 2007. There is mild cerebral and cerebellar volume loss. The ventricular system is normal in size, shape, a nd position for the degree of sulcal atrophy. There is no evidence of an acute infarction, hemorrhage, mass effect, or midline shift. Skull base has a normal CT appearance. Mucosal thickening is seen in each sphenoid sinus greater on the left. Mastoid air cells are clear. Osseous structures appear intact. IMPRESSION: 1. No acute intracranial abnormality demonstrated. 2. Chronic small vessel ischemic changes and cerebral as well as cerebellar volume loss. 3. Mucosal thickening sphenoid sinuses.
[2020-06-03] MEDS ORDERED: Apixaban 5 MG TAB PO SCH (09:00)
[2020-06-03] MEDS: Lisinopril 20 MG TAB PO SCH ×2 (09:07→21:51)
[2020-06-03] MEDS: Dronedarone HCl 400 MG TAB PO SCH ×2 (09:08→17:29)
[2020-06-03 10:17] LABS: Digoxin 2.58 ng/mL (0.8-2.0)
--- NOTE | 2020-06-03 14:30 | PRG ---
DATE OF SERVICE: 06/03/2020 SUBJECTIVE: Ms. Lebron is doing better. Heart rate is stable. She is back in atrial fibrillation. Her digoxin level did show elevated digoxin level, likely dig toxicity. Her creatinine has increased since her discharge 1 month ago. OBJECTIVE: VITAL SIGNS: Blood pressure 120/60, pulse 62, temperature 97.5. LUNGS: Clear to auscultation. HEART: Irregularly irregular. ABDOMEN: Soft, nontender, nondistended. EXTREMITIES: No edema. PERTINENT LABORATORY DATA: Include a hemoglobin of 13. Creatinine of 1.97, up from 1.5. Potassium of 4.5. IMPRESSION: 1. Digoxin toxicity. 2. Renal insufficiency. 3. Atrial fibrillation. RECOMMENDATIONS: 1. Discontinue digoxin. 2. Continue IV fluids at 125 mL an hour. 3. Monitor for further dysrhythmias. 4. No indication for Digibind given no hemodynamic compromise, hyperkalemia, hypokalemia, or significant dysrhythmias. 5. Continue low-dose Dobutrex. Job ID: [id number]
[2020-06-03] MEDS: Atorvastatin Calcium 20 MG TAB PO SCH (21:52)
[2020-06-03] MEDS: Apixaban 2.5 MG TAB PO SCH (21:52)
[2020-06-04] MEDS: Sodium Chloride 0.9% 1,000 ML IV SCH ×4 (00:23→23:09)
[2020-06-04 04:25] LABS: Hemoglobin 12.2 g/dL (12.0-16.0); Platelet Count 153 thou/uL (130-400)
[2020-06-04 04:35] LABS: ALT (SGPT) 12 U/L (8-55); AST (SGOT) 18 U/L (5-34); Albumin 3.1 g/dL (3.4-4.8); Alkaline Phosphatase 79 U/L (40-110); Anion Gap 16 mmol/L (10-20); BUN (Urea Nitrogen) 18 mg/dL (9.8-20.1); Bilirubin, Total 0.8 mg/dL (0.2-1.2); Calc. Creatinine Clearance 34 mL/min (70-130); Calcium 7.9 mg/dL (7.8-10.44); Carbon Dioxide 17 mmol/L (23-31); Chloride 115 mmol/L (98-107); Globulin 2.5 g/dL (2.4-3.5); Glucose 90 mg/dL (83-110); Magnesium 1.7 mg/dL (1.6-2.6); Potassium 3.9 mmol/L (3.5-5.1); Protein, Total 5.6 g/dL (6.0-8.3); Sodium 144 mmol/L (136-145)
[2020-06-04 04:38] LABS: #Eosinphils 0.2 thou/uL (0.0-0.7); #Lymphocytes 0.9 thou/uL (1.20-3.40); #Neutrophils 5.4 thou/uL (1.40-6.50); %Basophils 0.4 % (0.0-1.0); %Eosinophils 3.2 % (0.0-10.0); %Lymphocytes 12.5 % (21.0-51.0); %Monocytes 12.7 % (0.0-10.0); %Neutrophils 71.2 % (42.0-75.0); Hemoglobin 12.3 g/dL (12.0-16.0); Mean Corpuscular HGB CONC 32.1 g/dL (32.0-36.0); Mean Corpuscular Hemoglobin 28.3 pg (27.0-31.0); Mean Corpuscular Volume 88.3 fL (78.0-98.0); Mean Platelet Volume 8.6 fL (7.4-10.4); Platelet Count 157 thou/uL (130-400); RBC Distribution Width 12.7 % (11.5-14.5); Red Blood Cell (RBC) Count 4.34 mill/uL (4.20-5.40); White Blood Cell (WBC) Count 7.6 thou/uL (4.8-10.8)
[2020-06-04 05:39] LABS: Digoxin 1.85 ng/mL (0.8-2.0)
--- NOTE | 2020-06-04 06:28 | PDOC.FM ---
- Subjective Subjective: Slept well overnight. Denies headache, vision changes, chest pain, SOB, wheezing, nausea, abdominal pain, edema. Experienced 1 minute of v-tach overnight per tele but patient remained asymptomatic. - Objective MAR Reviewed: Yes Vital Signs & Weight: Vital Signs (12 hours) Temp Pulse Resp BP BP Pulse Ox 06/04/20 04:45 98.2 F 72 19 141/63 H 94 L 06/04/20 00:05 76 131/61 06/03/20 23:32 93 L 06/03/20 21:51 127/60 06/03/20 19:51 97.6 F 62 19 126/60 94 L 06/03/20 19:16 94 L Weight Weight 75.07 kg I&O: 06/02/20 06/03/20 06/04/20 06:59 06:59 06:59 Intake Total 1840 Output Total 320 Balance 1520 Result Diagrams: 06/04/20 03:42 06/04/20 03:41 Phys Exam - Physical Examination Constitutional: NAD HEENT: moist MMs, sclera anicteric Neck: supple, full ROM Respiratory: no wheezing, clear to auscultation bilateral Cardiovascular: irregular (Irreguarly irregular ) Gastrointestinal: soft, positive bowel sounds Musculoskeletal: edema present (1+ pitting) Neurological: moves all 4 limbs Psychiatric: normal affect, A&O x 3 Skin: no rash Dx/Plan - Plan Plan: Bradycardia likely 2/2 polypharmacy -s/p Atropine in ED -Dr. Roper, cardiology, consulted. F/u recs -Holding beta blockers and CCB -Continue dobutamine ggt -Continue to monitor on tele Encephalopathy likely 2/2 digoxin toxicity -Brain CT: chronic small vessel change, cerebral volume loss -RPR, HIV negative -TSH, electrolytes normal -Digoxin level trending 2.79 -> 3.02 -> 2.58 -> 1.85. Digoxin discontinued 06/03 -Digibind not recommended per cardiology -Discontinue NS 125 due to fluid overload Afib -aware -resume home meds except for noted as above -continuous tele monitoring Mitral regurgitation Echo in 05/2020: EF 55-60%, diastolic function could not be assessed. LA severely dilated, moderate to severe MR. -s/p lasix 60mEq total -CXR: small b/l effusions and mild pulmonary vascular congestion -BNP 873, trop .045>.029>.047 -Strict I/Os, daily weights -Echo in 05/2020: EF 55-60%, diastolic function could not be assessed. LA severely dilated, moderate to severe MR -Repeat echo pending Indeterminate troponin -0.045, 0.029, 0.047 -likely 2/2 demand ischemia during bradycardia CEFERINO -Cr 1.5 -> 1.97 -> 1.42 -Stop NS 125 mL/hr IVF. Encourage PO intake -Continue to monitor with am lab COPD -not requiring NC -Duonebs PRN q4 hr -continue home inhaler Tobacco abuse -aware, cessation encouraged HTN -Continue home meds -Hyralazine PRN for SBP >170 HLD -Continue home meds DVT PPx: home Eliquis Code: FULL PCP: Tono Dispo: Home pending further medical management Addendum - Attending - Attending Attestation Date/Time: 06/04/20 1385 I personally evaluated the patient and discussed the management with Dr. Conway. I agree with the History, Examination, Assessment and Plan documented above with any addition or exceptions noted below. Bradycardia secondary to digoxin toxicity- dig level now normal. dec IVF. Appreciate cards recs Afib- stable rate now.
[2020-06-04] MEDS: Ipratropium Bromide 2.5 ml Neb NEB SCH ×4 (06:46→23:23)
[2020-06-04] MEDS: Lisinopril 20 MG TAB PO SCH ×2 (08:41→21:32)
[2020-06-04] MEDS: Apixaban 2.5 MG TAB PO SCH ×2 (08:42→21:32)
[2020-06-04] MEDS: Dronedarone HCl 400 MG TAB PO SCH (09:44)
[2020-06-04] MEDS: Atorvastatin Calcium 20 MG TAB PO SCH (21:32)
--- NOTE | 2020-06-05 06:07 | PDOC.FM ---
- Subjective Subjective: Patient reports SOB overnight. Has not been able to sleep as a result. States she experienced this yesterday and notes it improved after sitting up in her chair throughout the afternoon. Notes intermittent dry cough. Denies headache, chest pain, nausea and abdominal pain. - Objective MAR Reviewed: Yes Vital Signs & Weight: Vital Signs (12 hours) Temp Pulse Resp BP BP Pulse Ox 06/05/20 04:17 80 151/69 H 06/05/20 03:31 97.5 F L 73 21 H 181/74 H 94 L 06/04/20 23:23 95 06/04/20 21:32 154/70 H 06/04/20 19:51 98.3 F 61 23 H 154/70 H 94 L 06/04/20 18:36 95 06/04/20 18:35 95 Weight Weight 77.519 kg I&O: 06/03/20 06/04/20 06/05/20 06:59 06:59 06:59 Intake Total 3450 2271 Output Total 470 900 Balance 2980 1371 Result Diagrams: 06/05/20 07:54 06/05/20 07:54 Phys Exam - Physical Examination Constitutional: NAD HEENT: moist MMs, sclera anicteric Neck: full ROM Respiratory: no wheezing, clear to auscultation bilateral Cardiovascular: no significant murmur, irregular (Irreguarly irregular) Gastrointestinal: soft, positive bowel sounds Musculoskeletal: edema present (1+ pitting edema, unchanged from yesterday) Neurological: moves all 4 limbs Psychiatric: normal affect, A&O x 3 Skin: no rash Dx/Plan - Plan Plan: Bradycardia 2/2 digoxin toxicity -s/p Atropine in ED -Dr. Roper, cardiology, consulted. F/u recs -Digoxin level trending 2.79 -> 3.02 -> 2.58 -> 1.85. Digoxin discontinued 06/03 -Holding beta blockers and CCB -Dobutamine ggt d/c'ed on 06/04 -Continue to monitor on tele Encephalopathy 2/2 digoxin toxicity -Brain CT: chronic small vessel change, cerebral volume loss -RPR, HIV negative -TSH, electrolytes normal -Digibind not recommended per cardiology Afib -aware -resume home meds except for noted as above -continuous tele monitoring Mitral regurgitation Echo in 05/2020: EF 55-60%, diastolic function could not be assessed. LA severely dilated, moderate to severe MR. Complaining of SOB on 06/05 -s/p lasix 60mEq total -CXR: small b/l effusions and mild pulmonary vascular congestion -BNP 873, trop .045>.029>.047 -Strict I/Os, daily weights -Echo on 06/04: 65-70%, severe MR, moderate to severe TR, dilation of IVC -CXR this am to r/o fluid overload vs. pneumonia Tricuspid regurgitation -Echo on 06/04 showed moderate to severe TR Indeterminate troponin likely 2/2 demand ischemia -0.045, 0.029, 0.047 -Likely due to bradycardia episode CEFERINO, improved -Cr 1.5 -> 1.97 -> 1.42 -Encourage PO intake -Continue to monitor with am lab COPD -not requiring NC -Duonebs PRN q4 hr -continue home inhaler Tobacco abuse -aware, cessation encouraged HTN -Continue home meds -Hyralazine PRN for SBP >170 HLD -Continue home meds DVT PPx: home Eliquis Code: FULL PCP: Tono Dispo: Home pending further medical management Addendum - Attending - Attending Attestation Date/Time: 06/05/20 0896 I personally evaluated the patient and discussed the management with Dr. Conway. I agree with the History, Examination, Assessment and Plan documented above with any addition or exceptions noted below. Dig toxicity causing bradycardia- resolved. Afib- pt NPO for possible cardioversion tomorrow with cards Dyspnea this am- sats stable, mild crackles at bases. Check CXR and BNP and treat accordingly.
[2020-06-05] MEDS: Ipratropium Bromide 2.5 ml Neb NEB SCH ×4 (06:47→23:50)
[2020-06-05] MEDS ORDERED: Apixaban 2.5 MG TAB PO SCH (08:00)
[2020-06-05 08:03] LABS: #Eosinphils 0.3 thou/uL (0.0-0.7); #Lymphocytes 0.8 thou/uL (1.20-3.40); #Monocytes 0.8 thou/uL (0.11-0.59); #Neutrophils 6.4 thou/uL (1.40-6.50); %Eosinophils 3.2 % (0.0-10.0); %Lymphocytes 9.7 % (21.0-51.0); %Monocytes 9.3 % (0.0-10.0); %Neutrophils 77.9 % (42.0-75.0); Hemoglobin 13.1 g/dL (12.0-16.0); Mean Corpuscular HGB CONC 32.5 g/dL (32.0-36.0); Mean Corpuscular Hemoglobin 28.7 pg (27.0-31.0); Mean Corpuscular Volume 88.5 fL (78.0-98.0); Mean Platelet Volume 8.4 fL (7.4-10.4); Platelet Count 182 thou/uL (130-400); RBC Distribution Width 12.7 % (11.5-14.5); Red Blood Cell (RBC) Count 4.55 mill/uL (4.20-5.40); White Blood Cell (WBC) Count 8.2 thou/uL (4.8-10.8)
[2020-06-05 08:24] LABS: ALT (SGPT) 17 U/L (8-55); AST (SGOT) 17 U/L (5-34); Albumin 3.3 g/dL (3.4-4.8); Alkaline Phosphatase 89 U/L (40-110); Anion Gap 15 mmol/L (10-20); BUN (Urea Nitrogen) 11 mg/dL (9.8-20.1); Bilirubin, Total 0.8 mg/dL (0.2-1.2); Calc. Creatinine Clearance 51 mL/min (70-130); Carbon Dioxide 18 mmol/L (23-31); Chloride 116 mmol/L (98-107); Globulin 2.6 g/dL (2.4-3.5); Glucose 94 mg/dL (83-110); Potassium 3.6 mmol/L (3.5-5.1); Protein, Total 5.9 g/dL (6.0-8.3); Sodium 145 mmol/L (136-145)
[2020-06-05] MEDS: Lisinopril 20 MG TAB PO SCH ×2 (09:23→20:44)
[2020-06-05] MEDS: Apixaban 5 MG TAB PO SCH ×2 (09:23→20:44)
--- NOTE | 2020-06-05 12:56 | RAD ---
TWO VIEW CHEST: HISTORY: Shortness of breath. COMPARISON: 06/02/2020. FINDINGS: Cardiomegaly with vascular congestion and bilateral effusions. Bibasilar infiltrates or atelectasis. Diffuse interstitial edema. IMPRESSION: Findings suggest CHF with interstitial edema. POS: AGW
[2020-06-05] MEDS ORDERED: Furosemide 20 MG/2 ML VIAL SLOW IVP SCH (17:15)
[2020-06-05] MEDS: Atorvastatin Calcium 20 MG TAB PO SCH (20:44)
[2020-06-06 05:06] LABS: Mean Corpuscular Volume 85.6 fL (78.0-98.0)
[2020-06-06 05:07] LABS: #Eosinphils 0.2 thou/uL (0.0-0.7); #Lymphocytes 0.8 thou/uL (1.20-3.40); #Monocytes 0.8 thou/uL (0.11-0.59); #Neutrophils 5.3 thou/uL (1.40-6.50); %Basophils 0.3 % (0.0-1.0); %Eosinophils 2.8 % (0.0-10.0); %Lymphocytes 11.6 % (21.0-51.0); %Monocytes 11.6 % (0.0-10.0); %Neutrophils 73.6 % (42.0-75.0); Hemoglobin 12.3 g/dL (12.0-16.0); Mean Corpuscular HGB CONC 33.3 g/dL (32.0-36.0); Mean Corpuscular Hemoglobin 28.5 pg (27.0-31.0); Mean Platelet Volume 8.5 fL (7.4-10.4); Platelet Count 172 thou/uL (130-400); RBC Distribution Width 12.5 % (11.5-14.5); White Blood Cell (WBC) Count 7.2 thou/uL (4.8-10.8)
[2020-06-06 05:31] LABS: Anion Gap 15 mmol/L (10-20); BUN (Urea Nitrogen) 9 mg/dL (9.8-20.1); Calc. Creatinine Clearance 49 mL/min (70-130); Calcium 8.3 mg/dL (7.8-10.44); Carbon Dioxide 21 mmol/L (23-31); Chloride 113 mmol/L (98-107); Glucose 92 mg/dL (83-110); Potassium 3.5 mmol/L (3.5-5.1); Sodium 145 mmol/L (136-145)
--- NOTE | 2020-06-06 06:44 | PDOC.FM ---
- Subjective Subjective: Ms. Lebron is tired this morning, stating she was "up all night peeing." She has not seen cardiology yet this morning and is unsure if they are still planning to cardiovert her. She reports improvement in her breathing. - Objective Vital Signs & Weight: Vital Signs (12 hours) Temp Pulse Resp BP BP BP BP 06/06/20 04:10 73 16 06/06/20 03:56 97.4 F L 71 23 H 155/72 H 06/06/20 00:25 76 144/66 H 06/05/20 21:15 91 142/62 H 06/05/20 20:44 176/77 H 06/05/20 20:38 97.8 F 71 20 176/77 H 06/05/20 18:57 16 Pulse Ox 06/06/20 04:10 97 06/06/20 03:56 94 L 06/06/20 00:25 06/05/20 21:15 06/05/20 20:44 06/05/20 20:38 94 L 06/05/20 18:57 Weight Weight 75.342 kg I&O: 06/04/20 06/05/20 06/06/20 06:59 06:59 06:59 Intake Total 3450 2271 630 Output Total 470 900 425 Balance 2980 1371 205 Result Diagrams: 06/06/20 04:14 06/06/20 04:14 EKG Reviewed by me: Yes (tele: Afib 60s) Phys Exam - Physical Examination Constitutional: NAD HEENT: moist MMs, sclera anicteric Neck: full ROM Respiratory: no wheezing, no rales, clear to auscultation bilateral Cardiovascular: RRR, no significant murmur Gastrointestinal: soft, non-tender, no distention Musculoskeletal: pulses present, edema present Neurological: moves all 4 limbs Psychiatric: normal affect, A&O x 3 Skin: no rash Dx/Plan - Plan Plan: Bradycardia 2/2 digoxin toxicity -s/p Atropine in ED -Dr. Roper, cardiology, consulted. F/u recs -Digoxin level trending 2.79 -> 3.02 -> 2.58 -> 1.85. Digoxin discontinued 06/03 -Holding beta blockers and CCB -Dobutamine ggt d/c'ed on 06/04 -Continue to monitor on tele Encephalopathy 2/2 digoxin toxicity -Brain CT: chronic small vessel change, cerebral volume loss -RPR, HIV negative -TSH, electrolytes normal -Digibind not recommended per cardiology Afib -aware -resume home meds except for noted as above -Cardiology considering cardioversion this AM -continuous tele monitoring Mitral regurgitation Echo in 05/2020: EF 55-60%, diastolic function could not be assessed. LA severely dilated, moderate to severe MR. Complaining of SOB on 06/05, improved this AM. -s/p lasix 60mEq total -CXR: small b/l effusions and mild pulmonary vascular congestion -BNP 873, trop .045>.029>.047 -Strict I/Os, daily weights -Echo on 06/04: 65-70%, severe MR, moderate to severe TR, dilation of IVC -CXR 06/05: CHF with interstitial edema. Received 20mg IV lasix - 1475mL urine output. Will reevaluate this afternoon and consider further diuresis. Tricuspid regurgitation -Echo on 06/04 showed moderate to severe TR Indeterminate troponin likely 2/2 demand ischemia -0.045, 0.029, 0.047 -Likely due to bradycardia episode CEFERINO, improved -Encourage PO intake -Continue to monitor with am lab COPD -not requiring NC -Duonebs PRN q4 hr -continue home inhaler Tobacco abuse -aware, cessation encouraged HTN -Continue home meds -Hyralazine PRN for SBP >170 HLD -Continue home meds DVT PPx: home Eliquis Code: FULL PCP: Tono Dispo: Home pending further medical management Addendum - Attending - Attending Attestation Date/Time: 06/06/20 1106 I personally evaluated the patient and discussed the management with Dr. Vallejo. I agree with the History, Examination, Assessment and Plan documented above with any addition or exceptions noted below. Wean O2 as tolerated. Cardiology on board, awaiting their further recs. No further bradycardia. Urinary retention being monitored.
[2020-06-06] MEDS: Ipratropium Bromide 2.5 ml Neb NEB SCH ×3 (06:45→19:14)
[2020-06-06] MEDS: Lisinopril 20 MG TAB PO SCH ×2 (08:32→21:38)
[2020-06-06] MEDS: Apixaban 5 MG TAB PO SCH ×2 (08:32→21:38)
[2020-06-06] MEDS ORDERED: Potassium Chloride 20 MEQ TAB PO SCH (09:30)
[2020-06-06] MEDS ORDERED: Furosemide 40 MG/4 ML VIAL SLOW IVP SCH (09:30)
--- NOTE | 2020-06-06 09:56 | PDOC.CPN ---
- Subjective Date: 06/06/20 Time: 09:30 Interval history: Still with c/o swelling and CORONA. No dizziness or lightheadedness. No Cp. - Review of Systems General: denies: fever/chills, weight/appetite/sleep changes, night sweats, fatigue Respiratory: reports: shortness of breath Cardiovascular: reports: edema Gastrointestinal: denies: nausea, vomiting, diarrhea, constipation, abd pain, GI bleeding Musculoskeletal: denies: pain, tenderness, stiffness, swelling, arthritis/arthralgias Neurological: denies: numbness, syncope, seizure, weakness - Objective Allergies/Adverse Reactions: Allergies Allergy/AdvReac Type Severity Reaction Status Date / Time No Known Drug Allergies Allergy Verified 06/03/20 05:23 Visit Medications: Current Medications Acetaminophen (Acetaminophen 325 Mg Tab) 650 mg PO Q4H PRN PRN Reason: Headache/Fever/Mild Pain (1-3) Albuterol/Ipratropium (Ipratropium/Albuterol Sulfate 3 Ml Neb) 3 ml NEB Q4H PRN PRN Reason: SOB &/or Wheezing Last Admin: 06/06/20 04:10 Dose: 3 ml Documented by: Apixaban (Apixaban 5 Mg Tab) 5 mg PO BID [facility] Last Admin: 06/06/20 08:32 Dose: 5 mg Documented by: Atorvastatin Calcium (Atorvastatin Calcium 20 Mg Tab) 20 mg PO HS [facility] Last Admin: 06/05/20 20:44 Dose: 20 mg Documented by: Bisacodyl (Bisacodyl 5 Mg Tab) 10 mg PO DAILYPRN PRN PRN Reason: Constipation Calcium Carbonate (Calcium Carbonate 500 Mg Chewtab) 1,000 mg PO Q4H PRN PRN Reason: Heartburn or Indigestion Furosemide (Furosemide 40 Mg/4 Ml Vial) 40 mg SLOW IVP NOW [facility] Stop: 06/06/20 12:00 Hydralazine HCl (Hydralazine 20 Mg/Ml Vial) 10 mg SLOW IVP Q4H PRN PRN Reason: SBP Greater Than 170 Dobutamine HCl/Dextrose (Dobutamine 500 Mg/250 Ml) 250 mls @ 0 mls/hr IVPB INF [facility] Last Admin: 06/03/20 21:49 Dose: 250 mls Documented by: Ipratropium [place] (Ipratropium [place] 2.5 Ml Neb) 2.5 ml NEB Q6DF-IU [facility] Last Admin: 06/06/20 06:45 Dose: 2.5 ml Documented by: Lisinopril (Lisinopril 20 Mg Tab) 20 mg PO BID [facility] Last Admin: 06/06/20 08:32 Dose: 20 mg Documented by: Ondansetron HCl (Ondansetron Odt 4 Mg Tab) 4 mg PO Q6H PRN PRN Reason: Nausea/Vomiting Potassium Chloride (Potassium Chloride 20 Meq Tab) 40 meq PO NOW [facility] Stop: 06/06/20 12:00 Senna/Docusate Sodium (Senokot S 8.6-50 Mg Tab) 2 tab PO BID PRN PRN Reason: Constipation Sodium Chloride (Flush - Normal Saline 10 Ml Syringe) 10 ml IVF PRN PRN PRN Reason: Saline Flush Last Admin: 06/05/20 18:06 Dose: 10 ml Documented by: Sodium Chloride (Flush - Normal Saline 10 Ml Syringe) 10 ml IVF Q12HR [facility] Last Admin: 06/06/20 08:33 Dose: 10 ml Documented by: Vital Signs & Weight: Vital Signs Temp Pulse Resp BP BP Pulse Ox 06/06/20 07:40 98.4 F 79 18 136/63 97 06/06/20 06:47 98 06/06/20 06:45 75 20 95 06/06/20 04:10 73 16 97 06/06/20 03:56 97.4 F L 71 23 H 155/72 H 94 L 06/06/20 00:25 76 144/66 H Weight 166 lb 1.6 oz - Physical Exam General: alert & oriented x3, no apparent distress HEENT: mucus membranes moist Neck: supple neck Cardiac: other (IRR IRR) Lungs: no wheezes, no rhonchi Neuro: grossly intact Abdomen: soft, non-tender Extremities: 1+ LE edema Skin: clear Musculoskeletal: no pain - Labs Result Diagrams: 06/06/20 04:14 06/06/20 04:14 Troponin/CKMB CK-MB (CK-2) 2.4 ng/mL (0-6.6) 06/02/20 15:56 Troponin I 0.047 ng/mL (< 0.028) H 06/02/20 23:00 - Assessment/Plan Assessment/Plan: 1. Bradycardia and Dig toxicity 2. Persistent AF 3. Acute CHF 4. HTN Rate improved. Stable on Eliquis. Still volume-overloaded. Will give additional IV lasix. Advised patient to try to get up to chair and work with PT today.
[2020-06-06] MEDS: Atorvastatin Calcium 20 MG TAB PO SCH (21:39)
[2020-06-07] MEDS: Ipratropium Bromide 2.5 ml Neb NEB SCH ×4 (00:05→18:47)
[2020-06-07 04:50] LABS: #Eosinphils 0.2 thou/uL (0.0-0.7); #Lymphocytes 0.6 thou/uL (1.20-3.40); #Monocytes 0.8 thou/uL (0.11-0.59); #Neutrophils 4.3 thou/uL (1.40-6.50); %Basophils 0.8 % (0.0-1.0); %Eosinophils 3.5 % (0.0-10.0); %Lymphocytes 10.1 % (21.0-51.0); %Monocytes 12.7 % (0.0-10.0); %Neutrophils 72.9 % (42.0-75.0); Hemoglobin 12.4 g/dL (12.0-16.0); Mean Corpuscular HGB CONC 32.4 g/dL (32.0-36.0); Mean Corpuscular Hemoglobin 28.2 pg (27.0-31.0); Mean Corpuscular Volume 86.9 fL (78.0-98.0); Mean Platelet Volume 8.4 fL (7.4-10.4); Platelet Count 171 thou/uL (130-400); RBC Distribution Width 12.5 % (11.5-14.5); White Blood Cell (WBC) Count 5.9 thou/uL (4.8-10.8)
[2020-06-07 05:09] LABS: Anion Gap 14 mmol/L (10-20); BUN (Urea Nitrogen) 9 mg/dL (9.8-20.1); Calc. Creatinine Clearance 50 mL/min (70-130); Calcium 8.5 mg/dL (7.8-10.44); Carbon Dioxide 24 mmol/L (23-31); Chloride 113 mmol/L (98-107); Glucose 97 mg/dL (83-110); Potassium 3.5 mmol/L (3.5-5.1); Sodium 147 mmol/L (136-145)
--- NOTE | 2020-06-07 07:02 | PDOC.FM ---
- Subjective Subjective: Ms. Lebron had just woken up and was tired this AM. She reports improvement in her breathing from yesterday. - Objective Vital Signs & Weight: Vital Signs (12 hours) Temp Pulse Resp BP BP Pulse Ox 06/07/20 04:00 97.6 F 66 20 133/64 94 L 06/07/20 00:05 68 12 06/06/20 21:38 131/64 06/06/20 21:34 98.3 F 81 16 131/64 92 L 06/06/20 19:14 16 Weight Weight 70.579 kg I&O: 06/06/20 06/07/20 06/08/20 06:59 06:59 06:59 Intake Total 750 1060 Output Total 1475 2050 Balance -725 -990 Result Diagrams: 06/07/20 04:24 06/07/20 04:24 EKG Reviewed by me: Yes (tele: Afib 60-70s) Phys Exam - Physical Examination Constitutional: NAD HEENT: moist MMs, sclera anicteric Neck: full ROM Respiratory: clear to auscultation bilateral irregular rate Gastrointestinal: soft, non-tender Musculoskeletal: pulses present, edema present Neurological: non-focal, moves all 4 limbs Psychiatric: normal affect, A&O x 3 Skin: no rash Dx/Plan - Plan Plan: Mitral regurgitation Echo in 05/2020: EF 55-60%, diastolic function could not be assessed. LA severely dilated, moderate to severe MR. Complaining of SOB on 06/05, improved this AM. -CXR: small b/l effusions and mild pulmonary vascular congestion -BNP 873, trop .045>.029>.047 -Strict I/Os, daily weights -Echo on 06/04: 65-70%, severe MR, moderate to severe TR, dilation of IVC -CXR 06/05: CHF with interstitial edema -Urine output: 2050mL after 40 IV lasix yesterday -40 IV lasix this AM to continue diuresis, 40 KDur since K 3.5 -CM consult for placement after discharge Bradycardia 2/2 digoxin toxicity, resolved -s/p Atropine in ED -Dr. Roper, cardiology, consulted. F/u recs -Digoxin level trending 2.79 -> 3.02 -> 2.58 -> 1.85. Digoxin discontinued 06/03 -Holding beta blockers and CCB -Dobutamine ggt d/c'ed on 06/04 -Continue to monitor on tele Encephalopathy 2/2 digoxin toxicity, resolved -Brain CT: chronic small vessel change, cerebral volume loss -RPR, HIV negative -TSH, electrolytes normal -Digibind not recommended per cardiology Afib -aware -resume home meds except for noted as above -Cardiology recs -continuous tele monitoring Tricuspid regurgitation -Echo on 06/04 showed moderate to severe TR Indeterminate troponin likely 2/2 demand ischemia -0.045, 0.029, 0.047 -Likely due to bradycardia episode CEFERINO, improved -Encourage PO intake -Continue to monitor with am lab COPD -not requiring NC -Duonebs PRN q4 hr -continue home inhaler Tobacco abuse -aware, cessation encouraged HTN -Continue home meds -Hyralazine PRN for SBP >170 HLD -Continue home meds DVT PPx: home Eliquis Code: FULL PCP: Tono Dispo: CM consult placed to evaluate for rehab to snf placement. Patient has been increasingly weak since admission and would most likely benefit. Continue medical management. Addendum - Attending - Attending Attestation Date/Time: 06/07/20 6834 I personally evaluated the patient and discussed the management with Dr. Vallejo. I agree with the History, Examination, Assessment and Plan documented above with any addition or exceptions noted below. Patient overall stable. Continue diuresis, wean O2 as tolerated. Cardiology follows. Will discuss placement at rehab with patient given PTs recommendations.
[2020-06-07] MEDS: Apixaban 5 MG TAB PO SCH ×2 (08:16→20:27)
[2020-06-07] MEDS: Lisinopril 20 MG TAB PO SCH ×2 (08:16→20:27)
[2020-06-07] MEDS ORDERED: Potassium Chloride 20 MEQ TAB PO SCH (08:45)
[2020-06-07] MEDS ORDERED: Furosemide 40 MG/4 ML VIAL SLOW IVP SCH (08:45)
--- NOTE | 2020-06-07 08:51 | CON ---
DATE OF CONSULTATION: 06/07/2020 HISTORY OF PRESENT ILLNESS: Ms. Lebron is doing better today. No current symptoms. She did have slight congestive heart failure yesterday. Her rate appears to be better controlled. Heart rate has been in the 60s to 80s. PHYSICAL EXAMINATION: VITAL SIGNS: Blood pressure 143/60, pulse 66, temperature 97.5. LUNGS: Minimal crackles noted bilaterally. Mild wheezing present. HEART: Irregular regular. ABDOMEN: Soft, nontender, nondistended. EXTREMITIES: No edema. PERTINENT LABORATORY DATA: Hemoglobin 12.4. Creatinine 1.04. Digoxin level 1.85 dated 06/04/2020. IMPRESSION: 1. Digoxin toxicity. 2. Diastolic dysfunction. RECOMMENDATIONS: Ms. Lebron is doing better. I would be okay from my standpoint to discharge home with close outpatient followup. We will continue abciximab, atorvastatin. Dobutrex has been discontinued. Would check digoxin level this morning. Continue with lisinopril. May need to reconsider cardioversion as an outpatient. Job ID: [id number]
[2020-06-07 09:17] LABS: Digoxin 0.78 ng/mL (0.8-2.0)
[2020-06-07] MEDS: Atorvastatin Calcium 20 MG TAB PO SCH (20:28)
[2020-06-08] MEDS: Ipratropium Bromide 2.5 ml Neb NEB SCH ×3 (00:17→12:56)
[2020-06-08 04:57] LABS: #Eosinphils 0.2 thou/uL (0.0-0.7); #Lymphocytes 0.7 thou/uL (1.20-3.40); #Monocytes 0.8 thou/uL (0.11-0.59); #Neutrophils 4.5 thou/uL (1.40-6.50); %Basophils 0.8 % (0.0-1.0); %Eosinophils 2.8 % (0.0-10.0); %Lymphocytes 10.6 % (21.0-51.0); %Monocytes 13.3 % (0.0-10.0); %Neutrophils 72.6 % (42.0-75.0); Hemoglobin 12.2 g/dL (12.0-16.0); Mean Corpuscular HGB CONC 32.9 g/dL (32.0-36.0); Mean Corpuscular Hemoglobin 29.2 pg (27.0-31.0); Mean Corpuscular Volume 88.9 fL (78.0-98.0); Mean Platelet Volume 8.5 fL (7.4-10.4); Platelet Count 171 thou/uL (130-400); RBC Distribution Width 12.5 % (11.5-14.5); Red Blood Cell (RBC) Count 4.18 mill/uL (4.20-5.40); White Blood Cell (WBC) Count 6.3 thou/uL (4.8-10.8)
[2020-06-08 05:03] LABS: Anion Gap 11 mmol/L (10-20); BUN (Urea Nitrogen) 11 mg/dL (9.8-20.1); Calc. Creatinine Clearance 46 mL/min (70-130); Calcium 9.1 mg/dL (7.8-10.44); Carbon Dioxide 28 mmol/L (23-31); Chloride 109 mmol/L (98-107); Glucose 109 mg/dL (83-110); Potassium 3.8 mmol/L (3.5-5.1); Sodium 144 mmol/L (136-145)
--- NOTE | 2020-06-08 06:56 | PDOC.FM ---
- Subjective Subjective: Ms. Lebron was resting comfortably in bed. She reports she is feeling better and feels that she is breathing better. She feels that she is still fluid overloaded because her legs are still swollen. - Objective Vital Signs & Weight: Vital Signs (12 hours) Temp Pulse Resp BP BP Pulse Ox 06/08/20 06:37 98 06/08/20 06:36 73 16 98 06/08/20 03:52 98.3 F 81 16 158/73 H 94 L 06/08/20 00:17 73 14 98 06/08/20 00:06 96 06/07/20 20:27 149/68 H 06/07/20 20:00 98.3 F 77 16 149/68 H 95 Weight Weight 69.808 kg I&O: 06/06/20 06/07/20 06/08/20 06:59 06:59 06:59 Intake Total 750 1060 1110 Output Total 1475 2050 1775 Balance -725 -990 -665 Result Diagrams: 06/08/20 04:25 06/08/20 04:25 EKG Reviewed by me: Yes (tele: Afib 60-90s) Phys Exam - Physical Examination Constitutional: NAD HEENT: moist MMs, sclera anicteric Neck: no JVD, full ROM Respiratory: no wheezing, clear to auscultation bilateral Cardiovascular: RRR, no significant murmur Gastrointestinal: soft, non-tender Musculoskeletal: pulses present, edema present Neurological: moves all 4 limbs Psychiatric: normal affect, A&O x 3 Skin: no rash Dx/Plan - Plan Plan: Mitral regurgitation Echo in 05/2020: EF 55-60%, diastolic function could not be assessed. LA severely dilated, moderate to severe MR. Complaining of SOB on 06/05, improved th is AM. -CXR: small b/l effusions and mild pulmonary vascular congestion -BNP 873, trop .045>.029>.047 -Strict I/Os, daily weights -Echo on 06/04: 65-70%, severe MR, moderate to severe TR, dilation of IVC -CXR 06/05: CHF with interstitial edema -Urine output: 1775mL after 40 IV lasix yesterday -Patient refused rehab. CM consult placed to set up HH. -Discharge home on PO lasix. Will give KDur as patient's K is 3.5 and we are sending her home with lasix. Bradycardia 2/2 digoxin toxicity, resolved -s/p Atropine in ED -Digoxin level trending 2.79 -> 3.02 -> 2.58 -> 1.85. Digoxin discontinued 06/03 -Dobutamine ggt d/c'ed on 06/04 -Continue to monitor on tele -Cards consult (Dr. Roper): continue eliquis, atorvastatin, lisinopril. No dobutrex Encephalopathy 2/2 digoxin toxicity, resolved -Brain CT: chronic small vessel change, cerebral volume loss -RPR, HIV negative -TSH, electrolytes normal -Digibind not recommended per cardiology Afib -aware -resume home meds except for noted as above -Cardiology recs -continuous tele monitoring Tricuspid regurgitation -Echo on 06/04 showed moderate to severe TR Indeterminate troponin likely 2/2 demand ischemia -0.045, 0.029, 0.047 -Likely due to bradycardia episode CEFERINO, improved -Encourage PO intake -Continue to monitor with am lab COPD -not requiring NC -Duonebs PRN q4 hr -continue home inhaler Tobacco abuse -aware, cessation encouraged HTN -Continue home meds -Consider increasing lisinopril. Will discuss with patient's PCP to be monitored and done outpatient. HLD -Continue home meds DVT PPx: home Eliquis Code: FULL PCP: Tono Dispo: Likely discharge home today with HH with PT and OT and po lasix. Patient should follow-up with Dr. Roper and Dr. Power soon after discharge. Addendum - Attending - Attending Attestation Date/Time: 06/08/20 6218 I personally evaluated the patient and discussed the management with Dr. Vallejo. I agree with the History, Examination, Assessment and Plan documented above with any addition or exceptions noted below. Patient feeling improved. Refuses rehab but open to HH with PT. Clarify today with cardiology her need for rate/rhythm control agents on discharge, and work to wean O2 if possible, otherwise may need outpatient O2 set up given her chronic COPD and CHF.
[2020-06-08] MEDS: Lisinopril 20 MG TAB PO SCH (08:20)
[2020-06-08] MEDS: Apixaban 5 MG TAB PO SCH (08:20)
[2020-06-08] MEDS ORDERED: Furosemide 20 MG TAB PO SCH (09:00)
[2020-06-08] MEDS ORDERED: Potassium Chloride 20 MEQ TAB PO SCH (09:00)
[2020-06-08 13:12] VITALS: BP 144/64; TEMP 98
--- NOTE | 2020-06-08 14:02 | PRG ---
DATE OF SERVICE: 06/08/2020 SUBJECTIVE: The patient is doing well. No current complaints. She is back to baseline. Her digoxin level is now at 0.8, which is felt to be therapeutic. OBJECTIVE: VITAL SIGNS: Blood pressure 144/64, pulse 84, temperature 98. LUNGS: Clear to auscultation. HEART: ABDOMEN: Soft, nontender, nondistended. EXTREMITIES: No edema. IMPRESSION: 1. Atrial fibrillation. 2. Digoxin toxicity. RECOMMENDATIONS: 1. We will recommend low-dose calcium channel blockade 120 mg p.o. q.a.m. 2. Discontinue digoxin. 3. Consider cardioversion as an outpatient. She has not missed any doses of Eliquis, but would like this hospitalization to be behind her prior to proceeding with cardioversion. 4. Okay from my standpoint to discharge home. Job ID: [id number]
--- NOTE | 2020-06-09 14:25 | DIS ---
DATE OF ADMISSION: 06/02/2020 DATE OF DISCHARGE: 06/08/2020 ENGINEER/CONDUCTOR: 1. Cardiology, Dr. Carrizales. 2. Case Management. 3. PT. PROCEDURES: 1. Chest x-ray on 06/02 revealed borderline heart size, mild pulmonary vascular congestion with accompanying small effusion. 2. Brain CT on 06/03 revealed chronic small-vessel ischemic changes and cerebral as well as cerebellar volume loss. Mucosal thickening, sphenoid sinuses. 3. Echocardiogram on 06/04, revealed ejection fraction of 65% to 70%, severe mitral regurgitation, [id number] tricuspid regurgitation, elevated right ventricular systolic pressure and dilation of the IVC. 4. Chest x-ray on 06/05 revealed findings that suggested CHF with interstitial edema. PRIMARY DIAGNOSES: 1. Mitral regurgitation. 2. Bradycardia secondary to digoxin toxicity. 3. Encephalopathy secondary to digoxin toxicity. 4. Atrial fibrillation. 5. Tricuspid regurgitation. SECONDARY DIAGNOSES: 1. Indeterminate troponin likely secondary to demand ischemia. 2. Acute kidney injury. 3. Chronic obstructive pulmonary disease. 4. Tobacco abuse. 5. Hypertension. 6. Hyperlipidemia. DISCHARGE MEDICATIONS: 1. Atorvastatin 20 mg p.o. q.h.s. 2. Lisinopril 20 mg p.o. b.i.d. 3. Spiriva 18 mcg inhaled daily. 4. Tylenol regular strength 650 mg p.o. q.4 hours p.r.n. 5. Cardizem 120 mg p.o. q.a.m. 6. Eliquis 5 mg p.o. b.i.d. 7. Lasix 20 mg p.o. daily. Discontinued medications: 1. Cardizem 180 mg p.o. daily. 2. Digoxin 0.125 mg p.o. daily. 3. Multaq 400 mg p.o. b.i.d. 4. Metoprolol 25 mg p.o. daily. HISTORY OF PRESENT ILLNESS AND HOSPITAL COURSE: Ms. Lebron is an 84-year-old female with past medical history of hypertension, hyperlipidemia, COPD, stroke in 2007, recently diagnosed with atrial fibrillation and possible heart failure, who presented from her appointment with analyst market intelligence, Dr. Roper where she was found to be bradycardic in the 40s. Patient's only complaint was shortness of breath for the last week or 2. She denied chest pain, palpitations, headache, changes in vision, abdominal pain, or syncope. She has noted swelling in her legs. She is unable to lie flat and has been sleeping in her recliner at home. Patient was altered on presentation. She is oriented x3, but was not herself per grandson report. She intermittently answers questions and stares into the room. She endorses compliance with medication, no changes in her diet. She lives at home by herself, and has been able to take care of herself without difficulty. She was recently discharged on 05/11/20 where she was admitted for new-onset atrial fibrillation with RVR, and possible heart failure. At that time, she was started on digoxin, Multaq, Eliquis, metoprolol, and Cardizem. Echo at that time showed ejection fraction of 50% to 55%, but diastolic function cannot be assessed. Upon presentation, the patient's digoxin level was found to be 2.79. She was started on fluid and her digoxin was discontinued. Patient was also started on a dobutamine drip. Digoxin also ultimately trended to normal range to 1.85. The patient's dobutamine drip was discontinued on the . Patient had a repeat echo performed during the stay, which showed ejection fraction of 65% to 70%, severe mitral regurgitation, and [id number] tricuspid regurgitation. Patient was likely diuresed with IV Lasix for several days, getting a total of 6-7 L removed. Patient reported improvement in her breathing after diuresis, and was slowly weaned off supplemental nasal cannula oxygen. The patient's altered mental state and bradycardia were thought to be due to elevated digoxin level and digoxin toxicity. These are resolved once digoxin was within normal ranges. Dr. Roper who is patient's analyst market intelligence, was consulted. Upon discharge, she recommended continuing her Eliquis, atorvastatin, and lisinopril and discontinuing her digoxin and dobutamine as well as decreasing her Cardizem. Patient was discharged home on 20 mg of p.o. Lasix daily, and told to follow closely with PCP, Dr. Power and analyst market intelligence, Dr. Roper. Patient was evaluated by PT who recommended rehab. Patient did not desire to go to rehab because she wanted to go home. Home Health was set up for patient's. DISPOSITION: Stable. DISCHARGE INSTRUCTIONS: 1. Location: Home with Home Health. 2. Diet: Heart healthy. 3. Activity: As tolerated. 4. Followup: Within the next few days with Dr. Roper. Follow up with me in 1-2 weeks with PCP, Dr. Power. Job ID: [id number]
== END 2020-06-08 16:55 | disposition home health service (06) | DRG 308 ==
LOC: ERS 15:29 → 2NO 18:06
PROVIDERS: ADMIT Family Medicine; ATTEND Family Medicine
DX: R00.1 Bradycardia, unspecified (principal); G92 Toxic encephalopathy; I50.31 Acute diastolic (congestive) heart failure; I24.8 Other forms of acute ischemic heart disease; N17.9 Acute kidney failure, unspecified; I48.19 Other persistent atrial fibrillation; Z20.828 Contact with and (suspected) exposure to other viral communicable diseases; I11.0 Hypertensive heart disease with heart failure; E78.5 Hyperlipidemia, unspecified; I08.1 Rheumatic disorders of both mitral and tricuspid valves; F17.210 Nicotine dependence, cigarettes, uncomplicated; J44.9 Chronic obstructive pulmonary disease, unspecified; Z86.73 Personal history of transient ischemic attack (TIA), and cerebral infarction without residual deficits; Z79.01 Long term (current) use of anticoagulants; Z90.710 Acquired absence of both cervix and uterus; Z85.828 Personal history of other malignant neoplasm of skin; Z71.6 Tobacco abuse counseling
CPT/HCPCS: 36415; 70450; 71045; 71046; 80048; 80053; 80162; 81001; 82553; 83735; 83880; 84443; 84484; 85014; 85018; 85025; 85049; 85610; 85730; 86780; 87389; 87635; 93005; 93306; 94640; 96365; 96366; 96375; 96376; J0461; J1250; J1940; J7620; U0003

== ENCOUNTER 2021-02-13 10:26 | Outpatient (CLI) | payer MEDICARE | END 2021-02-13 10:27 | disposition home or self-care (01) | LOC: BICULT 10:26 | PROVIDERS: ATTEND Internal Medicine Nephrology | DX: I12.9 Hypertensive chronic kidney disease with stage 1 through stage 4 chronic kidney disease, or unspecified chronic kidney disease (principal); N18.4 Chronic kidney disease, stage 4 (severe) | CPT/HCPCS: 76770 ==

== ENCOUNTER 2021-08-22 15:00 | Inpatient (IN) | payer MEDICARE ==
[2021-08-22] MEDS ORDERED: Acetaminophen 325 MG TAB PO PRN (22:30)
[2021-08-22] MEDS ORDERED: Atorvastatin Calcium 20 MG TAB PO SCH (22:45)
[2021-08-23 04:39] LABS: #Eosinphils 0.1 thou/uL (0.0-0.7); #Lymphocytes 0.9 thou/uL (1.20-3.40); #Monocytes 0.6 thou/uL (0.11-0.59); #Neutrophils 4.6 thou/uL (1.40-6.50); %Basophils 0.1 % (0.0-1.0); %Eosinophils 1.8 % (0.0-10.0); %Lymphocytes 14.2 % (21.0-51.0); %Monocytes 9.7 % (0.0-10.0); %Neutrophils 74.2 % (42.0-75.0); Hemoglobin 12.9 g/dL (12.0-16.0); Mean Corpuscular HGB CONC 30.6 g/dL (32.0-36.0); Mean Corpuscular Hemoglobin 26.7 pg (27.0-31.0); Mean Corpuscular Volume 87.1 fL (78.0-98.0); Mean Platelet Volume 7.7 fL (7.4-10.4); Platelet Count 210 thou/uL (130-400); Red Blood Cell (RBC) Count 4.86 mill/uL (4.20-5.40); White Blood Cell (WBC) Count 6.2 thou/uL (4.8-10.8)
[2021-08-23 04:52] LABS: INR-International Normal Ratio 2.2; Prothrombin Time 25.3 sec (12.0-14.7)
[2021-08-23 05:05] LABS: Anion Gap 15 mmol/L (10-20); BUN (Urea Nitrogen) 22 mg/dL (9.8-20.1); Calc. Creatinine Clearance 36 mL/min (70-130); Carbon Dioxide 26 mmol/L (23-31); Chloride 104 mmol/L (98-107); Glucose 86 mg/dL (83-110); Potassium 3.5 mmol/L (3.5-5.1); Sodium 141 mmol/L (136-145)
[2021-08-23] MEDS: Polyethylene Glycol 3350 17 GM Packet PO SCH ×2 (08:33→20:27)
[2021-08-23] MEDS: Aspirin Chewable 81 MG TAB PO SCH (08:33)
[2021-08-23] MEDS: Allopurinol 100 MG TAB PO SCH (08:33)
[2021-08-23] MEDS ORDERED: FLU VACC QS2021-22(65YR UP)/PF 240 MCG/0.7 ML SYRINGE IM ONE (09:00)
[2021-08-23] MEDS ORDERED: Furosemide 40 MG/4 ML VIAL SLOW IVP SCH (09:00)
[2021-08-23] MEDS ORDERED: Metoprolol Tartrate 5 MG/5 ML VIAL IVP SCH (10:00)
[2021-08-23] MEDS ORDERED: Potassium Chloride 20 MEQ TAB PO SCH (14:15)
[2021-08-23 15:50] LABS: Magnesium 2.1 mg/dL (1.6-2.6)
[2021-08-23] MEDS: Warfarin Sodium 2.5 MG TAB PO SCH (16:32)
[2021-08-23] MEDS: Atorvastatin Calcium 20 MG TAB PO SCH (20:25)
[2021-08-24 04:37] LABS: #Eosinphils 0.1 thou/uL (0.0-0.7); #Lymphocytes 1.1 thou/uL (1.20-3.40); #Monocytes 0.7 thou/uL (0.11-0.59); #Neutrophils 5.6 thou/uL (1.40-6.50); %Basophils 0.4 % (0.0-1.0); %Eosinophils 1.8 % (0.0-10.0); %Lymphocytes 14.8 % (21.0-51.0); %Monocytes 9.5 % (0.0-10.0); %Neutrophils 73.5 % (42.0-75.0); Hemoglobin 14.1 g/dL (12.0-16.0); Mean Corpuscular Hemoglobin 27.2 pg (27.0-31.0); Mean Corpuscular Volume 87.7 fL (78.0-98.0); Mean Platelet Volume 7.6 fL (7.4-10.4); Platelet Count 218 thou/uL (130-400); RBC Distribution Width 15.2 % (11.5-14.5); Red Blood Cell (RBC) Count 5.17 mill/uL (4.20-5.40); White Blood Cell (WBC) Count 7.5 thou/uL (4.8-10.8)
[2021-08-24 04:42] LABS: INR-International Normal Ratio 1.8; Prothrombin Time 21.6 sec (12.0-14.7)
[2021-08-24 04:51] LABS: Anion Gap 13 mmol/L (10-20); BUN (Urea Nitrogen) 26 mg/dL (9.8-20.1); Calc. Creatinine Clearance 31 mL/min (70-130); Calcium 9.2 mg/dL (7.8-10.44); Carbon Dioxide 24 mmol/L (23-31); Chloride 107 mmol/L (98-107); Glucose 94 mg/dL (83-110); Potassium 4.2 mmol/L (3.5-5.1); Sodium 140 mmol/L (136-145)
[2021-08-24] MEDS ORDERED: Furosemide 40 MG/4 ML VIAL SLOW IVP SCH (09:00)
[2021-08-24] MEDS: Allopurinol 100 MG TAB PO SCH (09:09)
[2021-08-24] MEDS: Aspirin Chewable 81 MG TAB PO SCH (09:12)
[2021-08-24] MEDS: Polyethylene Glycol 3350 17 GM Packet PO SCH ×2 (10:04→20:58)
[2021-08-24 11:39] VITALS: BMI 21.4
[2021-08-24] MEDS: Warfarin Sodium 2.5 MG TAB PO SCH (16:20)
[2021-08-24] MEDS: Atorvastatin Calcium 20 MG TAB PO SCH (20:57)
[2021-08-25 03:53] LABS: #Eosinphils 0.2 thou/uL (0.0-0.7); #Monocytes 0.6 thou/uL (0.11-0.59); #Neutrophils 4.1 thou/uL (1.40-6.50); %Basophils 0.2 % (0.0-1.0); %Lymphocytes 16.6 % (21.0-51.0); %Monocytes 9.5 % (0.0-10.0); %Neutrophils 70.7 % (42.0-75.0); Hemoglobin 13.6 g/dL (12.0-16.0); Mean Corpuscular HGB CONC 31.2 g/dL (32.0-36.0); Mean Corpuscular Hemoglobin 27.3 pg (27.0-31.0); Mean Corpuscular Volume 87.6 fL (78.0-98.0); Mean Platelet Volume 7.8 fL (7.4-10.4); Platelet Count 225 thou/uL (130-400); RBC Distribution Width 15.2 % (11.5-14.5); Red Blood Cell (RBC) Count 4.97 mill/uL (4.20-5.40); White Blood Cell (WBC) Count 5.8 thou/uL (4.8-10.8)
[2021-08-25 04:09] LABS: INR-International Normal Ratio 1.8; Prothrombin Time 21.6 sec (12.0-14.7)
[2021-08-25 04:15] LABS: Anion Gap 12 mmol/L (10-20); BUN (Urea Nitrogen) 32 mg/dL (9.8-20.1); Calc. Creatinine Clearance 30 mL/min (70-130); Carbon Dioxide 27 mmol/L (23-31); Chloride 106 mmol/L (98-107); Glucose 95 mg/dL (83-110); Potassium 3.7 mmol/L (3.5-5.1); Sodium 141 mmol/L (136-145)
[2021-08-25] MEDS: Aspirin Chewable 81 MG TAB PO SCH (09:29)
[2021-08-25] MEDS: Polyethylene Glycol 3350 17 GM Packet PO SCH (09:30)
[2021-08-25] MEDS: Allopurinol 100 MG TAB PO SCH (09:30)
[2021-08-25 12:00] VITALS: BP 128/63; TEMP 97.8
[2021-08-26] MEDS ORDERED: Warfarin Sodium 5 MG TAB PO SCH (17:00)
== END 2021-08-25 14:35 | disposition home health service (06) | DRG 291 ==
LOC: INTOOBSV 15:00 → 2NO 15:00 → OBSVTOIN 08-23 16:10
PROVIDERS: ADMIT Family Medicine; ATTEND Family Medicine
DX: I13.0 Hypertensive heart and chronic kidney disease with heart failure and stage 1 through stage 4 chronic kidney disease, or unspecified chronic kidney disease (principal); I50.33 Acute on chronic diastolic (congestive) heart failure; N17.9 Acute kidney failure, unspecified; N18.4 Chronic kidney disease, stage 4 (severe); I27.20 Pulmonary hypertension, unspecified; K59.00 Constipation, unspecified; R14.0 Abdominal distension (gaseous); I48.91 Unspecified atrial fibrillation; M10.9 Gout, unspecified; D63.1 Anemia in chronic kidney disease; E78.5 Hyperlipidemia, unspecified; E55.9 Vitamin D deficiency, unspecified; I08.1 Rheumatic disorders of both mitral and tricuspid valves; Z28.21 Immunization not carried out because of patient refusal; Z79.899 Other long term (current) drug therapy; Z79.82 Long term (current) use of aspirin; Z79.01 Long term (current) use of anticoagulants; Z90.49 Acquired absence of other specified parts of digestive tract; Z90.89 Acquired absence of other organs; Z90.710 Acquired absence of both cervix and uterus; Z85.828 Personal history of other malignant neoplasm of skin; Z98.49 Cataract extraction status, unspecified eye; Z82.49 Family history of ischemic heart disease and other diseases of the circulatory system; Z82.0 Family history of epilepsy and other diseases of the nervous system; Z87.891 Personal history of nicotine dependence
CPT/HCPCS: 36415; 76700; 80048; 83735; 84443; 85025; 85610; 93005; 93010; 93306; 96374; 96375; G0378; J1940

== ENCOUNTER 2021-10-31 12:11 | Inpatient (IN) | payer MEDICARE ==
[2021-10-31 13:08] LABS: Hemoglobin 14.8 g/dL (12.0-16.0); Mean Corpuscular HGB CONC 31.1 g/dL (32.0-36.0); Mean Corpuscular Hemoglobin 27.5 pg (27.0-31.0); Mean Corpuscular Volume 88.4 fL (78.0-98.0); Mean Platelet Volume 7.9 fL (7.4-10.4); Platelet Count 261 thou/uL (130-400); RBC Distribution Width 16.8 % (11.5-14.5); Red Blood Cell (RBC) Count 5.38 mill/uL (4.20-5.40); White Blood Cell (WBC) Count 21.3 thou/uL (4.8-10.8)
[2021-10-31 13:17] LABS: INR-International Normal Ratio 2.9; Prothrombin Time 31.1 sec (12.0-14.7)
[2021-10-31 13:19] LABS: PTT 85.6 sec (22.9-36.1)
[2021-10-31 13:24] LABS: Band 1 % (5-11); Lymphocytes 9 % (21-51); MDiff Complete? YES; Monocytes 4 % (0-10); Neutrophil 86 % (42-75); RBC Morphology Normal
[2021-10-31 13:38] LABS: ALT (SGPT) 11 U/L (8-55); AST (SGOT) 18 U/L (5-34); Albumin 3.8 g/dL (3.4-4.8); Alkaline Phosphatase 103 U/L (40-110); Anion Gap 16 mmol/L (10-20); BUN (Urea Nitrogen) 67 mg/dL (9.8-20.1); Bilirubin, Total 1.4 mg/dL (0.2-1.2); Calc. Creatinine Clearance 0 mL/min (70-130); Calcium 9.2 mg/dL (7.8-10.44); Carbon Dioxide 27 mmol/L (23-31); Chloride 100 mmol/L (98-107); Globulin 3.7 g/dL (2.4-3.5); Glucose 80 mg/dL (83-110); Potassium 3.7 mmol/L (3.5-5.1); Protein, Total 7.5 g/dL (5.8-8.1); Sodium 139 mmol/L (136-145)
[2021-10-31] MEDS ORDERED: Boostrix 0.5 ML (Tdap) VIAL ONE (16:11)
[2021-10-31] MEDS ORDERED: Fentanyl 100 MCG/2 ML VIAL ONE (16:30)
[2021-10-31] MEDS ORDERED: cefTRIAXone\\ROCEPHIN 2 GM VIAL ONE (16:38)
[2021-10-31] MEDS ORDERED: predniSONE 20 MG TAB PO SCH (17:15)
[2021-10-31] MEDS ORDERED: Vancomycin HCl 1.5 GM in Sodium Chloride 0.9% 250 ML 300 ML IVPB SCH (17:15)
[2021-10-31] MEDS ORDERED: Lactated Ringer's 1,000 ML IV SCH ×3 (17:30→18:43)
[2021-10-31 17:55] LABS: Troponin I 0.026 ng/mL (< 0.028)
[2021-10-31] MEDS ORDERED: Furosemide 20 MG TAB PO SCH (18:45)
[2021-10-31] MEDS ORDERED: Furosemide 40 MG TAB PO SCH (18:45)
[2021-10-31 19:56] VITALS: BMI 24.5
[2021-10-31] MEDS: Atorvastatin Calcium 20 MG TAB PO SCH (20:49)
[2021-10-31 21:00] LABS: Troponin I 0.016 ng/mL (< 0.028)
[2021-10-31] MEDS ORDERED: Doxycycline 100 MG in Sodium Chloride 0.9% 100 ML IVPB SCH (21:00)
[2021-10-31] MEDS: Azithromycin 500 MG in Sodium Chloride 0.9% 250 ML 250 ML IVPB SCH (22:13)
[2021-11-01] MEDS: Lactated Ringer's 1,000 ML IV SCH ×3 (00:25→18:24)
[2021-11-01 04:35] LABS: #Lymphocytes 0.4 thou/uL (1.20-3.40); #Monocytes 0.3 thou/uL (0.11-0.59); #Neutrophils 10.8 thou/uL (1.40-6.50); %Eosinophils 0.1 % (0.0-10.0); %Lymphocytes 3.5 % (21.0-51.0); %Monocytes 2.2 % (0.0-10.0); %Neutrophils 94.2 % (42.0-75.0); Hemoglobin 12.4 g/dL (12.0-16.0); Mean Corpuscular HGB CONC 31.9 g/dL (32.0-36.0); Mean Corpuscular Volume 87.8 fL (78.0-98.0); Platelet Count 202 thou/uL (130-400); RBC Distribution Width 16.2 % (11.5-14.5); Red Blood Cell (RBC) Count 4.43 mill/uL (4.20-5.40); White Blood Cell (WBC) Count 11.5 thou/uL (4.8-10.8)
[2021-11-01 04:52] LABS: ALT (SGPT) 12 U/L (8-55); AST (SGOT) 18 U/L (5-34); Albumin 3.2 g/dL (3.4-4.8); Alkaline Phosphatase 101 U/L (40-110); Anion Gap 15 mmol/L (10-20); BUN (Urea Nitrogen) 59 mg/dL (9.8-20.1); Bilirubin, Total 0.8 mg/dL (0.2-1.2); Calc. Creatinine Clearance 22 mL/min (70-130); Calcium 8.2 mg/dL (7.8-10.44); Carbon Dioxide 20 mmol/L (23-31); Chloride 107 mmol/L (98-107); Glucose 176 mg/dL (83-110); Potassium 3.7 mmol/L (3.5-5.1); Protein, Total 6.2 g/dL (5.8-8.1); Sodium 138 mmol/L (136-145)
[2021-11-01] MEDS ORDERED: guaiFENesin ER 600 MG TAB PO PRN (07:13)
[2021-11-01] MEDS ORDERED: Lactated Ringer's 500 ML IV SCH (07:15)
[2021-11-01] MEDS: Aspirin Chewable 81 MG TAB PO SCH (08:12)
[2021-11-01] MEDS: predniSONE 20 MG TAB PO SCH (08:12)
[2021-11-01] MEDS ORDERED: Allopurinol 100 MG TAB PO SCH (09:00)
[2021-11-01 10:38] LABS: Legionella Urinary Ag Negative (Negative); Strep pneumo Urine Ag NEGATIVE (NEGATIVE)
[2021-11-01] MEDS: guaiFENesin ER 600 MG TAB PO SCH ×2 (11:20→20:40)
[2021-11-01 11:58] LABS: SARS-CoV-2 PCR by NAA Not Detected (NotDetected)
[2021-11-01] MEDS: cefTRIAXone\\ROCEPHIN 2 GM in Sodium Chloride 0.9% 100 ML IVPB SCH (16:31)
[2021-11-01] MEDS ORDERED: Warfarin Sodium 2.5 MG TAB PO SCH ×2 (17:00)
[2021-11-01] MEDS: Azithromycin 500 MG in Sodium Chloride 0.9% 250 ML 250 ML IVPB SCH (20:39)
[2021-11-01] MEDS: Atorvastatin Calcium 20 MG TAB PO SCH (20:40)
[2021-11-02 04:35] LABS: INR-International Normal Ratio 3.7; Prothrombin Time 37.7 sec (12.0-14.7)
[2021-11-02] MEDS: Lactated Ringer's 1,000 ML IV SCH (05:34)
[2021-11-02 07:41] LABS: Anion Gap 15 mmol/L (10-20); BUN (Urea Nitrogen) 50 mg/dL (9.8-20.1); Calc. Creatinine Clearance 30 mL/min (70-130); Calcium 8.6 mg/dL (7.8-10.44); Carbon Dioxide 22 mmol/L (23-31); Chloride 108 mmol/L (98-107); Glucose 113 mg/dL (83-110); Potassium 4.1 mmol/L (3.5-5.1); Sodium 141 mmol/L (136-145)
[2021-11-02 07:47] LABS: Mean Corpuscular HGB CONC 31.7 g/dL (32.0-36.0); Mean Corpuscular Hemoglobin 28.2 pg (27.0-31.0); Mean Corpuscular Volume 89.1 fL (78.0-98.0); Mean Platelet Volume 8.7 fL (7.4-10.4); Platelet Count 194 thou/uL (130-400); RBC Distribution Width 16.2 % (11.5-14.5); White Blood Cell (WBC) Count 12.5 thou/uL (4.8-10.8)
[2021-11-02 08:00] LABS: Band 2 % (5-11); Lymphocytes 2 % (21-51); MDiff Complete? YES; Monocytes 4 % (0-10); Neutrophil 92 % (42-75); RBC Morphology Normal
[2021-11-02] MEDS: Aspirin Chewable 81 MG TAB PO SCH (09:11)
[2021-11-02] MEDS: predniSONE 20 MG TAB PO SCH (09:11)
[2021-11-02] MEDS: guaiFENesin ER 600 MG TAB PO SCH ×2 (09:11→20:28)
[2021-11-02] MEDS: cefTRIAXone\\ROCEPHIN 2 GM in Sodium Chloride 0.9% 100 ML IVPB SCH (16:10)
[2021-11-02] MEDS: Azithromycin 500 MG in Sodium Chloride 0.9% 250 ML 250 ML IVPB SCH (20:27)
[2021-11-02] MEDS: Atorvastatin Calcium 20 MG TAB PO SCH (20:28)
[2021-11-02] MEDS ORDERED: Metoprolol Tartrate 5 MG/5 ML VIAL IVP SCH (21:15)
[2021-11-03 04:23] LABS: INR-International Normal Ratio 3.2; Prothrombin Time 33.1 sec (12.0-14.7)
[2021-11-03 04:24] LABS: PTT 76.4 sec (22.9-36.1)
[2021-11-03 04:41] LABS: Anion Gap 16 mmol/L (10-20); BUN (Urea Nitrogen) 44 mg/dL (9.8-20.1); Calc. Creatinine Clearance 32 mL/min (70-130); Calcium 8.8 mg/dL (7.8-10.44); Carbon Dioxide 22 mmol/L (23-31); Chloride 110 mmol/L (98-107); Glucose 146 mg/dL (83-110); Potassium 3.9 mmol/L (3.5-5.1); Sodium 144 mmol/L (136-145)
[2021-11-03 05:19] LABS: Band 6 % (5-11); Hemoglobin 12.7 g/dL (12.0-16.0); Lymphocytes 7 % (21-51); MDiff Complete? YES; Mean Corpuscular HGB CONC 31.6 g/dL (32.0-36.0); Mean Corpuscular Hemoglobin 28.4 pg (27.0-31.0); Mean Corpuscular Volume 89.9 fL (78.0-98.0); Mean Platelet Volume 8.2 fL (7.4-10.4); Monocytes 8 % (0-10); Neutrophil 79 % (42-75); Platelet Count 223 thou/uL (130-400); RBC Distribution Width 16.3 % (11.5-14.5); Red Blood Cell (RBC) Count 4.47 mill/uL (4.20-5.40); White Blood Cell (WBC) Count 9.9 thou/uL (4.8-10.8)
[2021-11-03] MEDS: Aspirin Chewable 81 MG TAB PO SCH (09:12)
[2021-11-03] MEDS: Acetaminophen 325 MG TAB PO PRN ×2 (09:12→17:45)
[2021-11-03] MEDS: guaiFENesin ER 600 MG TAB PO SCH ×2 (09:13→20:37)
[2021-11-03] MEDS: predniSONE 20 MG TAB PO SCH (09:13)
[2021-11-03] MEDS: cefTRIAXone\\ROCEPHIN 2 GM in Sodium Chloride 0.9% 100 ML IVPB SCH (17:08)
[2021-11-03] MEDS ORDERED: Metoprolol Tartrate 5 MG/5 ML VIAL IVP SCH (20:15)
[2021-11-03] MEDS: Azithromycin 500 MG in Sodium Chloride 0.9% 250 ML 250 ML IVPB SCH (20:37)
[2021-11-03] MEDS: Atorvastatin Calcium 20 MG TAB PO SCH (20:37)
[2021-11-04 04:21] LABS: Hemoglobin 13.8 g/dL (12.0-16.0); Mean Corpuscular HGB CONC 31.1 g/dL (32.0-36.0); Mean Corpuscular Hemoglobin 27.9 pg (27.0-31.0); Mean Corpuscular Volume 89.6 fL (78.0-98.0); Mean Platelet Volume 8.6 fL (7.4-10.4); Platelet Count 219 thou/uL (130-400); RBC Distribution Width 16.3 % (11.5-14.5); Red Blood Cell (RBC) Count 4.96 mill/uL (4.20-5.40); White Blood Cell (WBC) Count 11.7 thou/uL (4.8-10.8)
[2021-11-04 04:26] LABS: INR-International Normal Ratio 2.7; Prothrombin Time 29.3 sec (12.0-14.7)
[2021-11-04 04:39] LABS: Lymphocytes 7 % (21-51); MDiff Complete? YES; Monocytes 8 % (0-10); Myelocyte 1 % (0-0); Neutrophil 84 % (42-75)
[2021-11-04 07:35] LABS: Anion Gap 14 mmol/L (10-20); BUN (Urea Nitrogen) 41 mg/dL (9.8-20.1); Calc. Creatinine Clearance 37 mL/min (70-130); Calcium 8.9 mg/dL (7.8-10.44); Carbon Dioxide 22 mmol/L (23-31); Chloride 110 mmol/L (98-107); Glucose 95 mg/dL (83-110); Potassium 4.2 mmol/L (3.5-5.1); Sodium 142 mmol/L (136-145)
[2021-11-04] MEDS: predniSONE 20 MG TAB PO SCH (08:33)
[2021-11-04] MEDS: Aspirin Chewable 81 MG TAB PO SCH (08:34)
[2021-11-04] MEDS: guaiFENesin ER 600 MG TAB PO SCH ×2 (08:34→20:30)
[2021-11-04] MEDS ORDERED: Metoprolol Tartrate 5 MG/5 ML VIAL IVP SCH (09:00)
[2021-11-04] MEDS ORDERED: Furosemide 40 MG/4 ML VIAL SLOW IVP SCH (09:00)
[2021-11-04] MEDS ORDERED: Metoprolol Tartrate 50 MG TAB PO SCH (09:00)
[2021-11-04] MEDS ORDERED: Warfarin Sodium 5 MG TAB PO SCH (17:00)
[2021-11-04] MEDS: cefTRIAXone\\ROCEPHIN 2 GM in Sodium Chloride 0.9% 100 ML IVPB SCH (17:44)
[2021-11-04] MEDS: Atorvastatin Calcium 20 MG TAB PO SCH (20:30)
[2021-11-04] MEDS: Azithromycin 500 MG in Sodium Chloride 0.9% 250 ML 250 ML IVPB SCH (20:30)
[2021-11-04] MEDS: Acetaminophen 325 MG TAB PO PRN (21:42)
[2021-11-05] MEDS: Acetaminophen 325 MG TAB PO PRN ×3 (03:07→23:55)
[2021-11-05 04:33] LABS: INR-International Normal Ratio 1.8; PTT 64.1 sec (22.9-36.1); Prothrombin Time 21.2 sec (12.0-14.7)
[2021-11-05 04:43] LABS: Anion Gap 15 mmol/L (10-20); BUN (Urea Nitrogen) 43 mg/dL (9.8-20.1); Calc. Creatinine Clearance 35 mL/min (70-130); Carbon Dioxide 22 mmol/L (23-31); Chloride 109 mmol/L (98-107); Glucose 133 mg/dL (83-110); Potassium 4.3 mmol/L (3.5-5.1); Sodium 142 mmol/L (136-145)
[2021-11-05 05:06] LABS: Band 9 % (5-11); Hemoglobin 12.8 g/dL (12.0-16.0); Lymphocytes 8 % (21-51); MDiff Complete? YES; Mean Corpuscular HGB CONC 31.1 g/dL (32.0-36.0); Mean Corpuscular Hemoglobin 27.5 pg (27.0-31.0); Mean Corpuscular Volume 88.4 fL (78.0-98.0); Mean Platelet Volume 8.8 fL (7.4-10.4); Monocytes 4 % (0-10); Neutrophil 79 % (42-75); Platelet Count 260 thou/uL (130-400); RBC Distribution Width 16.3 % (11.5-14.5); Red Blood Cell (RBC) Count 4.67 mill/uL (4.20-5.40); White Blood Cell (WBC) Count 15.7 thou/uL (4.8-10.8)
[2021-11-05] MEDS ORDERED: Polyethylene Glycol 3350 17 GM Packet PO PRN (07:48)
[2021-11-05] MEDS ORDERED: Furosemide 40 MG/4 ML VIAL SLOW IVP SCH (08:00)
[2021-11-05 08:56] LABS: Magnesium 2.2 mg/dL (1.6-2.6); Phosphorus 3.9 mg/dL (2.3-4.7)
[2021-11-05] MEDS: Aspirin Chewable 81 MG TAB PO SCH (09:37)
[2021-11-05] MEDS: guaiFENesin ER 600 MG TAB PO SCH ×2 (09:37→20:34)
[2021-11-05] MEDS: predniSONE 20 MG TAB PO SCH (09:38)
[2021-11-05] MEDS ORDERED: Diltiazem HCl SR 60 mg Capsule PO SCH (12:00)
[2021-11-05] MEDS: cefTRIAXone\\ROCEPHIN 2 GM in Sodium Chloride 0.9% 100 ML IVPB SCH (16:22)
[2021-11-05] MEDS: Warfarin Sodium 2.5 MG TAB PO SCH (16:24)
[2021-11-05] MEDS: Azithromycin 500 MG in Sodium Chloride 0.9% 250 ML 250 ML IVPB SCH (20:32)
[2021-11-05] MEDS: Atorvastatin Calcium 20 MG TAB PO SCH (20:34)
[2021-11-05] MEDS: diphenhydrAMINE 25 MG CAP PO PRN (23:56)
[2021-11-06 04:35] LABS: Hemoglobin 12.7 g/dL (12.0-16.0); Mean Corpuscular HGB CONC 31.7 g/dL (32.0-36.0); Mean Corpuscular Hemoglobin 28.1 pg (27.0-31.0); Mean Corpuscular Volume 88.5 fL (78.0-98.0); Mean Platelet Volume 8.4 fL (7.4-10.4); Platelet Count 267 thou/uL (130-400); RBC Distribution Width 16.3 % (11.5-14.5); Red Blood Cell (RBC) Count 4.53 mill/uL (4.20-5.40); White Blood Cell (WBC) Count 13.8 thou/uL (4.8-10.8)
[2021-11-06 04:43] LABS: INR-International Normal Ratio 1.5; Prothrombin Time 18.8 sec (12.0-14.7)
[2021-11-06 04:44] LABS: PTT 58.3 sec (22.9-36.1)
[2021-11-06 04:50] LABS: Band 3 % (5-11); Lymphocytes 5 % (21-51); MDiff Complete? YES; Monocytes 8 % (0-10); Neutrophil 83 % (42-75); Reactive Lymphocytes 1 % (0-10)
[2021-11-06 04:52] LABS: Anion Gap 14 mmol/L (10-20); BUN (Urea Nitrogen) 42 mg/dL (9.8-20.1); Calc. Creatinine Clearance 36 mL/min (70-130); Calcium 8.7 mg/dL (7.8-10.44); Carbon Dioxide 25 mmol/L (23-31); Chloride 108 mmol/L (98-107); Glucose 117 mg/dL (83-110); Potassium 4.3 mmol/L (3.5-5.1); Sodium 143 mmol/L (136-145)
[2021-11-06] MEDS: Furosemide 20 MG TAB PO SCH (09:04)
[2021-11-06] MEDS: Aspirin Chewable 81 MG TAB PO SCH (09:04)
[2021-11-06] MEDS: guaiFENesin ER 600 MG TAB PO SCH ×2 (09:04→20:33)
[2021-11-06] MEDS: predniSONE 20 MG TAB PO SCH (09:07)
[2021-11-06] MEDS ORDERED: Furosemide 20 MG/2 ML VIAL SLOW IVP SCH (16:15)
[2021-11-06] MEDS ORDERED: Warfarin Sodium 5 MG TAB PO SCH (17:00)
[2021-11-06] MEDS: Atorvastatin Calcium 20 MG TAB PO SCH (20:33)
[2021-11-07] MEDS: diphenhydrAMINE 25 MG CAP PO PRN (00:38)
[2021-11-07] MEDS: Acetaminophen 325 MG TAB PO PRN (00:38)
[2021-11-07 05:05] LABS: INR-International Normal Ratio 1.9; Prothrombin Time 21.8 sec (12.0-14.7)
[2021-11-07 05:23] LABS: Anion Gap 13 mmol/L (10-20); BUN (Urea Nitrogen) 41 mg/dL (9.8-20.1); Calc. Creatinine Clearance 33 mL/min (70-130); Calcium 8.6 mg/dL (7.8-10.44); Carbon Dioxide 27 mmol/L (23-31); Chloride 106 mmol/L (98-107); Glucose 92 mg/dL (83-110); Sodium 142 mmol/L (136-145)
[2021-11-07 05:56] LABS: Band 6 % (5-11); Hemoglobin 12.9 g/dL (12.0-16.0); Lymphocytes 2 % (21-51); MDiff Complete? YES; Mean Corpuscular Hemoglobin 27.3 pg (27.0-31.0); Mean Platelet Volume 8.1 fL (7.4-10.4); Monocytes 5 % (0-10); Myelocyte 1 % (0-0); Neutrophil 86 % (42-75); Platelet Count 305 thou/uL (130-400); RBC Distribution Width 16.5 % (11.5-14.5); Red Blood Cell (RBC) Count 4.73 mill/uL (4.20-5.40); White Blood Cell (WBC) Count 12.7 thou/uL (4.8-10.8)
[2021-11-07] MEDS: Furosemide 20 MG TAB PO SCH (08:53)
[2021-11-07] MEDS: Aspirin Chewable 81 MG TAB PO SCH (08:53)
[2021-11-07] MEDS: guaiFENesin ER 600 MG TAB PO SCH (08:53)
[2021-11-07 15:24] VITALS: BP 129/60; TEMP 98.4
[2021-11-07] MEDS: Warfarin Sodium 2.5 MG TAB PO SCH (17:21)
== END 2021-11-07 18:50 | disposition home health service (06) | DRG 871 ==
LOC: ERS 12:11 → 2NO 16:52
PROVIDERS: ADMIT Student in an Organized Health Care Education/Training Program; ATTEND Student in an Organized Health Care Education/Training Program
DX: A41.9 Sepsis, unspecified organism (principal); J18.9 Pneumonia, unspecified organism; J96.01 Acute respiratory failure with hypoxia; I50.32 Chronic diastolic (congestive) heart failure; E87.2 Acidosis; J44.1 Chronic obstructive pulmonary disease with (acute) exacerbation; J44.0 Chronic obstructive pulmonary disease with (acute) lower respiratory infection; N17.9 Acute kidney failure, unspecified; I13.0 Hypertensive heart and chronic kidney disease with heart failure and stage 1 through stage 4 chronic kidney disease, or unspecified chronic kidney disease; N18.4 Chronic kidney disease, stage 4 (severe); I48.19 Other persistent atrial fibrillation; Z66 Do not resuscitate; Z20.822 Contact with and (suspected) exposure to COVID-19; R65.20 Severe sepsis without septic shock; I27.20 Pulmonary hypertension, unspecified; D63.1 Anemia in chronic kidney disease; E78.5 Hyperlipidemia, unspecified; W19.XXXA Unspecified fall, initial encounter; S09.90XA Unspecified injury of head, initial encounter; I34.0 Nonrheumatic mitral (valve) insufficiency; G47.00 Insomnia, unspecified; Z79.82 Long term (current) use of aspirin; Z79.02 Long term (current) use of antithrombotics/antiplatelets; Z79.899 Other long term (current) drug therapy; Z85.828 Personal history of other malignant neoplasm of skin; Z90.710 Acquired absence of both cervix and uterus; Z87.891 Personal history of nicotine dependence
CPT/HCPCS: 36415; 36416; 70450; 71045; 71046; 71250; 72125; 74177; 80048; 80053; 83605; 83735; 83880; 84100; 84145; 84484; 85025; 85610; 85730; 86850; 86900; 86901; 87040; 87449; 87899; 90715; 93005; 93010; 94640; 96365; 96367; 96375; J0456; J0696; J1940; J3010; J3370; J3490; J7050; J7120; J7512; J7620; U0003; U0005

== ENCOUNTER 2021-12-10 14:25 | Inpatient (IN) | payer MEDICARE ==
[2021-12-10] MEDS ORDERED: cefTRIAXone\\ROCEPHIN 2 GM VIAL ONE ×2 (14:45→14:52)
[2021-12-10] MEDS ORDERED: Azithromycin 250 MG TAB ONE (14:52)
[2021-12-10] MEDS ORDERED: Magnesium 2 GM/50 ML BAG (IN WATER) ONE (14:52)
[2021-12-10 15:06] LABS: Hemoglobin 12.5 g/dL (12.0-16.0); Mean Corpuscular HGB CONC 30.4 g/dL (32.0-36.0); Mean Corpuscular Hemoglobin 27.6 pg (27.0-31.0); Mean Corpuscular Volume 90.5 fL (78.0-98.0); Mean Platelet Volume 7.7 fL (7.4-10.4); Platelet Count 251 thou/uL (130-400); RBC Distribution Width 17.3 % (11.5-14.5); Red Blood Cell (RBC) Count 4.54 mill/uL (4.20-5.40); White Blood Cell (WBC) Count 10.6 thou/uL (4.8-10.8)
[2021-12-10 15:11] LABS: Actual Bicarbonate (HCO3a) 25.6 mEq/L (22-28); Analyzer IN Cardio ER; Base Excess (BEa) 0.2 mEq/L (-2.0 to +3.0); CO2 Tension 44.2 mmHg (35.0-45.0); Calcium, Ionized (arterial) 1.15 mmol/L (1.12-1.30); Carboxyhemoglobin (COHb) 0.8 gm% (0.0-3.0); Hemoglobin (Hb) 12.4 g/dL (12.0-16.0); O2 Tension (PaO2), arterial 67.2 mmHg (> 60.0); Potassium - ABG Lab 3.78 mmol/L (3.70-5.30); pH, Arterial 7.38 (7.35-7.45)
[2021-12-10 15:14] LABS: Puncture Site RRA
[2021-12-10] MEDS ORDERED: Albuterol Sulfate 2.5 mg/0.5 ml Neb ONE (15:17)
[2021-12-10] MEDS ORDERED: Albuterol Sulfate 2.5 mg/3 ml Neb ONE (15:17)
[2021-12-10 15:19] LABS: Prothrombin Time 62.9 sec (12.0-14.7)
[2021-12-10 15:20] LABS: D-Dimer Test 0.83 *mcg/mL (0.27-0.43); PTT 76.4 sec (22.9-36.1)
[2021-12-10 15:21] LABS: INR-International Normal Ratio 7.1
[2021-12-10 15:23] LABS: Anisocytosis SLIGHT = 6-15 cells (100X) (0-5/hpf); Band 3 % (5-11); Eosinophils 1 % (0-10); Lymphocytes 8 % (21-51); MDiff Complete? YES; Monocytes 2 % (0-10); Neutrophil 86 % (42-75); Platelet Morphology Comment Appears Adequate; Polychromasia SLIGHT = 2-3 cells (100X) (0-2/hpf)
[2021-12-10 15:34] LABS: ALT (SGPT) 11 U/L (8-55); AST (SGOT) 21 U/L (5-34); Albumin 3.4 g/dL (3.4-4.8); Alkaline Phosphatase 105 U/L (40-110); Anion Gap 19 mmol/L (10-20); BUN (Urea Nitrogen) 20 mg/dL (9.8-20.1); Bilirubin, Total 1.3 mg/dL (0.2-1.2); Calc. Creatinine Clearance 0 mL/min (70-130); Calcium 8.2 mg/dL (7.8-10.44); Carbon Dioxide 23 mmol/L (23-31); Chloride 106 mmol/L (98-107); Globulin 3.6 g/dL (2.4-3.5); Glucose 106 mg/dL (83-110); Potassium 4.6 mmol/L (3.5-5.1); Sodium 143 mmol/L (136-145)
[2021-12-10] MEDS ORDERED: Azithromycin 500 MG VIAL ONE (15:49)
[2021-12-10 16:00] LABS: SARS-CoV-2 NAA Rapid Test Not Detected (NotDetected)
[2021-12-10] MEDS ORDERED: Nitroglycerin 0.4 MG TAB 1 EACH ONE (16:33)
[2021-12-10] MEDS ORDERED: Furosemide 20 MG/2 ML VIAL ONE ×2 (16:33→16:34)
[2021-12-10] MEDS ORDERED: Ondansetron ODT 4 MG TAB PO PRN (16:47)
[2021-12-10] MEDS ORDERED: predniSONE 20 MG TAB PO SCH (17:00)
[2021-12-10 17:57] LABS: Bacteria/HPF None Seen HPF (None Seen); Bilirubin Negative (Negative); Blood, Urine Negative (Negative); Clarity Clear (Clear); Glucose, Urine (Dipstick) Normal (Negative); Ketone, Urine Trace mg/dL (Negative); Leukocyte 25 Leu/uL (Negative); Nitrite Negative (Negative); Protein, Urine (Dipstick) 10 mg/dL (Neg-Trace); RBC/HPF None Seen HPF (0-3); Specific Gravity, Urine 1.015 (1.002-1.036); Squamous Epithelial 0-3 HPF (0-3); Urobilinogen Normal mg/dL (Less than 2); pH, Urine 5.5 (5.0-9.0)
[2021-12-10 18:19] LABS: Troponin I 0.012 ng/mL (< 0.028)
[2021-12-10 18:43] LABS: SARS-CoV-2 NAA Rapid Test Not Detected (NotDetected)
[2021-12-10] MEDS: Atorvastatin Calcium 20 MG TAB PO SCH (20:20)
[2021-12-10 21:25] LABS: Troponin I 0.011 ng/mL (< 0.028)
[2021-12-11 04:30] LABS: Prothrombin Time 65.5 sec (12.0-14.7)
[2021-12-11 04:31] LABS: Anion Gap 16 mmol/L (10-20); BUN (Urea Nitrogen) 21 mg/dL (9.8-20.1); Calc. Creatinine Clearance 45 mL/min (70-130); Calcium 8.4 mg/dL (7.8-10.44); Carbon Dioxide 28 mmol/L (23-31); Chloride 105 mmol/L (98-107); Glucose 137 mg/dL (83-110); Potassium 3.7 mmol/L (3.5-5.1); Sodium 145 mmol/L (136-145)
[2021-12-11 04:34] LABS: INR-International Normal Ratio 7.5
[2021-12-11 05:00] LABS: Anisocytosis SLIGHT = 6-15 cells (100X) (0-5/hpf); Hemoglobin 11.3 g/dL (12.0-16.0); Hypochromia SLIGHT = 6-15 cells (100X) (0-5/hpf); Lymphocytes 6 % (21-51); MDiff Complete? YES; Mean Corpuscular HGB CONC 31.7 g/dL (32.0-36.0); Mean Corpuscular Hemoglobin 27.8 pg (27.0-31.0); Mean Corpuscular Volume 87.9 fL (78.0-98.0); Mean Platelet Volume 7.6 fL (7.4-10.4); Neutrophil 94 % (42-75); Platelet Count 231 thou/uL (130-400); Platelet Morphology Comment Appears Adequate; Polychromasia SLIGHT = 2-3 cells (100X) (0-2/hpf); RBC Distribution Width 17.1 % (11.5-14.5); Red Blood Cell (RBC) Count 4.07 mill/uL (4.20-5.40)
[2021-12-11] MEDS ORDERED: Furosemide 40 MG/4 ML VIAL SLOW IVP SCH (06:00)
[2021-12-11] MEDS ORDERED: Azithromycin 250 MG TAB PO SCH (09:00)
[2021-12-11] MEDS ORDERED: Aspirin Chewable 81 MG TAB PO SCH (09:00)
[2021-12-11] MEDS ORDERED: predniSONE 20 MG TAB PO SCH (09:00)
[2021-12-11] MEDS ORDERED: Phytonadione 5 MG TAB PO SCH (09:30)
[2021-12-11] MEDS: Allopurinol 100 MG TAB PO SCH (09:57)
[2021-12-11] MEDS: Atorvastatin Calcium 20 MG TAB PO SCH (20:12)
[2021-12-11] MEDS: Acetaminophen 325 MG TAB PO PRN (20:34)
[2021-12-11] MEDS ORDERED: Melatonin 3 MG TAB PO SCH (23:00)
[2021-12-12 04:14] LABS: #Lymphocytes 0.8 thou/uL (1.20-3.40); #Monocytes 0.8 thou/uL (0.11-0.59); #Neutrophils 17.1 thou/uL (1.40-6.50); %Basophils 0.1 % (0.0-1.0); %Eosinophils 0.1 % (0.0-10.0); %Lymphocytes 4.1 % (21.0-51.0); %Monocytes 4.2 % (0.0-10.0); %Neutrophils 91.6 % (42.0-75.0); Hemoglobin 11.4 g/dL (12.0-16.0); Mean Corpuscular HGB CONC 31.2 g/dL (32.0-36.0); Mean Corpuscular Hemoglobin 27.6 pg (27.0-31.0); Mean Corpuscular Volume 88.4 fL (78.0-98.0); Mean Platelet Volume 7.6 fL (7.4-10.4); Platelet Count 275 thou/uL (130-400); RBC Distribution Width 17.6 % (11.5-14.5); Red Blood Cell (RBC) Count 4.12 mill/uL (4.20-5.40); White Blood Cell (WBC) Count 18.7 thou/uL (4.8-10.8)
[2021-12-12 04:24] LABS: Prothrombin Time 61.9 sec (12.0-14.7)
[2021-12-12 04:26] LABS: INR-International Normal Ratio 6.9
[2021-12-12 04:35] LABS: Anion Gap 17 mmol/L (10-20); BUN (Urea Nitrogen) 30 mg/dL (9.8-20.1); Calc. Creatinine Clearance 34 mL/min (70-130); Calcium 8.9 mg/dL (7.8-10.44); Carbon Dioxide 27 mmol/L (23-31); Chloride 103 mmol/L (98-107); Glucose 134 mg/dL (83-110); Potassium 3.7 mmol/L (3.5-5.1); Sodium 143 mmol/L (136-145)
[2021-12-12] MEDS: Allopurinol 100 MG TAB PO SCH (08:47)
[2021-12-12] MEDS: Furosemide 20 MG TAB PO SCH (08:47)
[2021-12-12] MEDS ORDERED: Diltiazem HCl SR 60 mg Capsule PO SCH (12:15)
[2021-12-12] MEDS: Atorvastatin Calcium 20 MG TAB PO SCH (21:37)
[2021-12-12] MEDS: Acetaminophen 325 MG TAB PO PRN (21:37)
[2021-12-13] MEDS: Acetaminophen 325 MG TAB PO PRN (03:44)
[2021-12-13 03:46] LABS: #Eosinphils 0.1 thou/uL (0.0-0.7); #Lymphocytes 1.2 thou/uL (1.20-3.40); #Monocytes 0.9 thou/uL (0.11-0.59); #Neutrophils 9.8 thou/uL (1.40-6.50); %Eosinophils 0.8 % (0.0-10.0); %Lymphocytes 9.9 % (21.0-51.0); %Monocytes 7.4 % (0.0-10.0); %Neutrophils 81.9 % (42.0-75.0); Mean Corpuscular HGB CONC 32.5 g/dL (32.0-36.0); Mean Corpuscular Hemoglobin 28.9 pg (27.0-31.0); Mean Corpuscular Volume 89.1 fL (78.0-98.0); Mean Platelet Volume 7.6 fL (7.4-10.4); Platelet Count 255 thou/uL (130-400); RBC Distribution Width 17.7 % (11.5-14.5); Red Blood Cell (RBC) Count 4.16 mill/uL (4.20-5.40)
[2021-12-13 03:55] LABS: Prothrombin Time 47.8 sec (12.0-14.7)
[2021-12-13 04:04] LABS: Anion Gap 13 mmol/L (10-20); BUN (Urea Nitrogen) 28 mg/dL (9.8-20.1); Calc. Creatinine Clearance 42 mL/min (70-130); Calcium 8.6 mg/dL (7.8-10.44); Carbon Dioxide 30 mmol/L (23-31); Chloride 106 mmol/L (98-107); Glucose 100 mg/dL (83-110); Sodium 145 mmol/L (136-145)
[2021-12-13] MEDS: Allopurinol 100 MG TAB PO SCH (08:49)
[2021-12-13] MEDS: Furosemide 20 MG TAB PO SCH (08:49)
[2021-12-13] MEDS: Atorvastatin Calcium 20 MG TAB PO SCH (21:07)
[2021-12-14 04:13] LABS: #Eosinphils 0.2 thou/uL (0.0-0.7); #Monocytes 0.8 thou/uL (0.11-0.59); #Neutrophils 6.5 thou/uL (1.40-6.50); %Basophils 0.1 % (0.0-1.0); %Eosinophils 2.8 % (0.0-10.0); %Lymphocytes 11.6 % (21.0-51.0); %Monocytes 8.9 % (0.0-10.0); %Neutrophils 76.7 % (42.0-75.0); Hemoglobin 11.7 g/dL (12.0-16.0); Mean Corpuscular HGB CONC 30.8 g/dL (32.0-36.0); Mean Corpuscular Hemoglobin 27.9 pg (27.0-31.0); Mean Corpuscular Volume 90.5 fL (78.0-98.0); Mean Platelet Volume 7.3 fL (7.4-10.4); Platelet Count 288 thou/uL (130-400); RBC Distribution Width 17.8 % (11.5-14.5); Red Blood Cell (RBC) Count 4.21 mill/uL (4.20-5.40); White Blood Cell (WBC) Count 8.5 thou/uL (4.8-10.8)
[2021-12-14] MEDS ORDERED: Furosemide 40 MG/4 ML VIAL ONE (04:15)
[2021-12-14 04:18] LABS: Anion Gap 12 mmol/L (10-20); BUN (Urea Nitrogen) 23 mg/dL (9.8-20.1); Calc. Creatinine Clearance 50 mL/min (70-130); Calcium 8.3 mg/dL (7.8-10.44); Carbon Dioxide 29 mmol/L (23-31); Chloride 106 mmol/L (98-107); Glucose 89 mg/dL (83-110); Potassium 4.1 mmol/L (3.5-5.1); Sodium 143 mmol/L (136-145)
[2021-12-14 04:27] LABS: INR-International Normal Ratio 2.3; Prothrombin Time 25.9 sec (12.0-14.7)
[2021-12-14 05:01] LABS: #Eosinphils 0.2 thou/uL (0.0-0.7); #Lymphocytes 1.4 thou/uL (1.20-3.40); #Monocytes 0.9 thou/uL (0.11-0.59); #Neutrophils 7.6 thou/uL (1.40-6.50); %Basophils 0.2 % (0.0-1.0); %Eosinophils 2.2 % (0.0-10.0); %Lymphocytes 13.7 % (21.0-51.0); %Neutrophils 74.9 % (42.0-75.0); Hemoglobin 11.9 g/dL (12.0-16.0); Mean Corpuscular HGB CONC 30.5 g/dL (32.0-36.0); Mean Corpuscular Hemoglobin 27.5 pg (27.0-31.0); Mean Corpuscular Volume 90.1 fL (78.0-98.0); Mean Platelet Volume 7.4 fL (7.4-10.4); Platelet Count 313 thou/uL (130-400); RBC Distribution Width 17.7 % (11.5-14.5); Red Blood Cell (RBC) Count 4.32 mill/uL (4.20-5.40); White Blood Cell (WBC) Count 10.1 thou/uL (4.8-10.8)
[2021-12-14 05:09] LABS: ALT (SGPT) 14 U/L (8-55); AST (SGOT) 15 U/L (5-34); Albumin 3.1 g/dL (3.4-4.8); Alkaline Phosphatase 85 U/L (40-110); Anion Gap 13 mmol/L (10-20); BUN (Urea Nitrogen) 22 mg/dL (9.8-20.1); Bilirubin, Total 1.1 mg/dL (0.2-1.2); Calc. Creatinine Clearance 49 mL/min (70-130); Calcium 8.5 mg/dL (7.8-10.44); Carbon Dioxide 30 mmol/L (23-31); Chloride 106 mmol/L (98-107); Globulin 3.2 g/dL (2.4-3.5); Glucose 102 mg/dL (83-110); Potassium 4.3 mmol/L (3.5-5.1); Protein, Total 6.3 g/dL (5.8-8.1); Sodium 145 mmol/L (136-145)
[2021-12-14 05:14] LABS: Troponin I 0.015 ng/mL (< 0.028)
[2021-12-14 05:25] LABS: INR-International Normal Ratio 2.2; Prothrombin Time 24.9 sec (12.0-14.7)
[2021-12-14 07:44] LABS: Actual Bicarbonate (HCO3a) 31.4 mEq/L (22-28); Base Excess (BEa) 5.9 mEq/L (-2.0 to +3.0); CO2 Tension 49.2 mmHg (35.0-45.0); Calcium, Ionized (arterial) 1.11 mmol/L (1.12-1.30); Hemoglobin (Hb) 12.9 g/dL (12.0-16.0); O2 Tension (PaO2), arterial 82.9 mmHg (> 60.0); Potassium - ABG Lab 3.81 mmol/L (3.70-5.30); Puncture Site RRA; pH, Arterial 7.42 (7.35-7.45)
[2021-12-14] MEDS: Allopurinol 100 MG TAB PO SCH ×2 (09:08→09:40)
[2021-12-14] MEDS: acetaZOLAMIDE Sodium 500 mg Vial IVP SCH ×2 (09:08→21:07)
[2021-12-14] MEDS ORDERED: predniSONE 20 MG TAB PO SCH (09:30)
[2021-12-14] MEDS ORDERED: methylPREDNISolone Sod Succ 40 MG VIAL IVP SCH (12:00)
[2021-12-14] MEDS: Atorvastatin Calcium 20 MG TAB PO SCH ×2 (21:06→21:15)
[2021-12-14] MEDS: diphenhydrAMINE 25 MG CAP PO SCH (21:12)
[2021-12-15 04:15] LABS: #Lymphocytes 0.7 thou/uL (1.20-3.40); #Monocytes 0.2 thou/uL (0.11-0.59); #Neutrophils 8.7 thou/uL (1.40-6.50); %Basophils 0.3 % (0.0-1.0); %Eosinophils 0.2 % (0.0-10.0); %Monocytes 2.3 % (0.0-10.0); %Neutrophils 90.3 % (42.0-75.0); Hemoglobin 11.9 g/dL (12.0-16.0); Mean Corpuscular HGB CONC 31.2 g/dL (32.0-36.0); Mean Corpuscular Hemoglobin 27.8 pg (27.0-31.0); Mean Corpuscular Volume 89.2 fL (78.0-98.0); Mean Platelet Volume 7.4 fL (7.4-10.4); Platelet Count 300 thou/uL (130-400); RBC Distribution Width 17.4 % (11.5-14.5); Red Blood Cell (RBC) Count 4.26 mill/uL (4.20-5.40); White Blood Cell (WBC) Count 9.6 thou/uL (4.8-10.8)
[2021-12-15 04:23] LABS: INR-International Normal Ratio 1.7; Prothrombin Time 20.4 sec (12.0-14.7)
[2021-12-15 04:37] LABS: Anion Gap 12 mmol/L (10-20); BUN (Urea Nitrogen) 30 mg/dL (9.8-20.1); Calc. Creatinine Clearance 43 mL/min (70-130); Calcium 8.7 mg/dL (7.8-10.44); Carbon Dioxide 28 mmol/L (23-31); Chloride 104 mmol/L (98-107); Glucose 130 mg/dL (83-110); Potassium 4.2 mmol/L (3.5-5.1); Sodium 140 mmol/L (136-145)
[2021-12-15] MEDS ORDERED: predniSONE 20 MG TAB PO SCH (08:00)
[2021-12-15] MEDS: Allopurinol 100 MG TAB PO SCH (08:18)
[2021-12-15] MEDS: methylPREDNISolone Sod Succ 40 MG VIAL IVP SCH (08:18)
[2021-12-15] MEDS: acetaZOLAMIDE Sodium 500 mg Vial IVP SCH ×2 (08:19→21:25)
[2021-12-15] MEDS: Atorvastatin Calcium 20 MG TAB PO SCH (21:25)
[2021-12-15] MEDS: diphenhydrAMINE 25 MG CAP PO SCH (21:29)
[2021-12-15] MEDS ORDERED: Lorazepam 2 MG/ML VIAL SLOW IVP SCH (22:15)
[2021-12-16 03:27] LABS: #Lymphocytes 0.8 thou/uL (1.20-3.40); #Monocytes 0.6 thou/uL (0.11-0.59); #Neutrophils 12.9 thou/uL (1.40-6.50); %Basophils 0.3 % (0.0-1.0); %Eosinophils 0.1 % (0.0-10.0); %Lymphocytes 5.4 % (21.0-51.0); %Monocytes 3.9 % (0.0-10.0); %Neutrophils 90.4 % (42.0-75.0); Hemoglobin 11.7 g/dL (12.0-16.0); Mean Corpuscular HGB CONC 31.8 g/dL (32.0-36.0); Mean Corpuscular Hemoglobin 28.3 pg (27.0-31.0); Mean Corpuscular Volume 88.7 fL (78.0-98.0); Mean Platelet Volume 7.7 fL (7.4-10.4); Platelet Count 311 thou/uL (130-400); RBC Distribution Width 17.2 % (11.5-14.5); Red Blood Cell (RBC) Count 4.14 mill/uL (4.20-5.40); White Blood Cell (WBC) Count 14.3 thou/uL (4.8-10.8)
[2021-12-16 03:40] LABS: INR-International Normal Ratio 1.8; Prothrombin Time 20.9 sec (12.0-14.7)
[2021-12-16 03:48] LABS: Anion Gap 12 mmol/L (10-20); BUN (Urea Nitrogen) 40 mg/dL (9.8-20.1); Calc. Creatinine Clearance 39 mL/min (70-130); Carbon Dioxide 25 mmol/L (23-31); Chloride 104 mmol/L (98-107); Glucose 124 mg/dL (83-110); Potassium 4.3 mmol/L (3.5-5.1); Sodium 137 mmol/L (136-145)
[2021-12-16] MEDS: Allopurinol 100 MG TAB PO SCH (08:51)
[2021-12-16] MEDS: Furosemide 20 MG TAB PO SCH (08:51)
[2021-12-16] MEDS: acetaZOLAMIDE Sodium 500 mg Vial IVP SCH ×2 (08:51→21:01)
[2021-12-16] MEDS: methylPREDNISolone Sod Succ 40 MG VIAL IVP SCH (08:52)
[2021-12-16] MEDS: Sterile Water 10 ML VIAL FS SCH ×2 (08:54→21:01)
[2021-12-16] MEDS ORDERED: Piperacillin/Tazobactam 3.375 GM in Sodium Chloride 0.9% 100 ML IVPB SCH ×2 (13:30→18:00)
[2021-12-16] MEDS: Furosemide 40 MG/4 ML VIAL SLOW IVP SCH (14:13)
[2021-12-16] MEDS ORDERED: Warfarin Sodium 5 MG TAB PO SCH ×2 (17:00)
[2021-12-16] MEDS: Piperacillin/Tazobactam 3.375 GM in Sodium Chloride 0.9% 100 ML IVPB SCH (17:17)
[2021-12-16] MEDS ORDERED: hydrOXYzine 25 MG TAB PO SCH (20:00)
[2021-12-16] MEDS: diphenhydrAMINE 25 MG CAP PO SCH (21:01)
[2021-12-16] MEDS: Atorvastatin Calcium 20 MG TAB PO SCH (21:01)
[2021-12-17] MEDS: Piperacillin/Tazobactam 3.375 GM in Sodium Chloride 0.9% 100 ML IVPB SCH ×2 (02:31→09:26)
[2021-12-17 03:53] LABS: #Lymphocytes 0.9 thou/uL (1.20-3.40); #Monocytes 0.7 thou/uL (0.11-0.59); #Neutrophils 11.2 thou/uL (1.40-6.50); %Eosinophils 0.1 % (0.0-10.0); %Lymphocytes 7.3 % (21.0-51.0); %Monocytes 5.1 % (0.0-10.0); %Neutrophils 87.6 % (42.0-75.0); Hemoglobin 11.9 g/dL (12.0-16.0); Mean Corpuscular HGB CONC 31.4 g/dL (32.0-36.0); Mean Corpuscular Hemoglobin 27.8 pg (27.0-31.0); Mean Corpuscular Volume 88.4 fL (78.0-98.0); Mean Platelet Volume 7.2 fL (7.4-10.4); Platelet Count 325 thou/uL (130-400); RBC Distribution Width 17.3 % (11.5-14.5); Red Blood Cell (RBC) Count 4.27 mill/uL (4.20-5.40); White Blood Cell (WBC) Count 12.8 thou/uL (4.8-10.8)
[2021-12-17 03:59] LABS: INR-International Normal Ratio 1.5; Prothrombin Time 18.7 sec (12.0-14.7)
[2021-12-17 04:20] LABS: Anion Gap 13 mmol/L (10-20); BUN (Urea Nitrogen) 42 mg/dL (9.8-20.1); Calc. Creatinine Clearance 30 mL/min (70-130); Calcium 8.9 mg/dL (7.8-10.44); Carbon Dioxide 23 mmol/L (23-31); Chloride 104 mmol/L (98-107); Glucose 122 mg/dL (83-110); Potassium 4.1 mmol/L (3.5-5.1); Sodium 136 mmol/L (136-145)
[2021-12-17] MEDS: Furosemide 40 MG/4 ML VIAL SLOW IVP SCH ×2 (06:15→13:33)
[2021-12-17] MEDS: methylPREDNISolone Sod Succ 40 MG VIAL IVP SCH (09:27)
[2021-12-17] MEDS: Allopurinol 100 MG TAB PO SCH (09:27)
[2021-12-17] MEDS: acetaZOLAMIDE Sodium 500 mg Vial IVP SCH ×2 (09:53→21:11)
[2021-12-17] MEDS: Sterile Water 10 ML VIAL FS SCH ×2 (11:16→21:11)
[2021-12-17] MEDS ORDERED: Warfarin Sodium 5 MG TAB PO SCH (17:00)
[2021-12-17] MEDS ORDERED: Lorazepam 0.5 MG TAB PO SCH (20:45)
[2021-12-17] MEDS: Atorvastatin Calcium 20 MG TAB PO SCH (21:08)
[2021-12-18 03:48] LABS: #Lymphocytes 0.6 thou/uL (1.20-3.40); #Monocytes 0.6 thou/uL (0.11-0.59); #Neutrophils 9.2 thou/uL (1.40-6.50); %Eosinophils 0.1 % (0.0-10.0); %Lymphocytes 6.1 % (21.0-51.0); %Monocytes 6.1 % (0.0-10.0); %Neutrophils 87.7 % (42.0-75.0); Hemoglobin 12.3 g/dL (12.0-16.0); Mean Corpuscular HGB CONC 31.1 g/dL (32.0-36.0); Mean Corpuscular Hemoglobin 27.6 pg (27.0-31.0); Mean Corpuscular Volume 88.9 fL (78.0-98.0); Mean Platelet Volume 7.3 fL (7.4-10.4); Platelet Count 338 thou/uL (130-400); RBC Distribution Width 17.3 % (11.5-14.5); Red Blood Cell (RBC) Count 4.47 mill/uL (4.20-5.40); White Blood Cell (WBC) Count 10.5 thou/uL (4.8-10.8)
[2021-12-18 03:59] LABS: INR-International Normal Ratio 1.6; Prothrombin Time 19.6 sec (12.0-14.7)
[2021-12-18 04:00] LABS: Anion Gap 13 mmol/L (10-20); BUN (Urea Nitrogen) 45 mg/dL (9.8-20.1); Calc. Creatinine Clearance 32 mL/min (70-130); Calcium 8.7 mg/dL (7.8-10.44); Carbon Dioxide 25 mmol/L (23-31); Chloride 106 mmol/L (98-107); Glucose 119 mg/dL (83-110); Potassium 4.1 mmol/L (3.5-5.1); Sodium 140 mmol/L (136-145)
[2021-12-18] MEDS ORDERED: Sodium Chloride 0.9% 1,000 ML IV SCH (04:08)
[2021-12-18] MEDS: Furosemide 40 MG/4 ML VIAL SLOW IVP SCH ×2 (07:07→14:03)
[2021-12-18] MEDS: acetaZOLAMIDE Sodium 500 mg Vial IVP SCH ×2 (08:52→20:42)
[2021-12-18] MEDS: Sterile Water 10 ML VIAL FS SCH ×2 (08:52→20:42)
[2021-12-18] MEDS: Allopurinol 100 MG TAB PO SCH (08:53)
[2021-12-18] MEDS ORDERED: Lorazepam 0.5 MG TAB PO PRN (09:20)
[2021-12-18] MEDS: Acetaminophen 325 MG TAB PO PRN (12:27)
[2021-12-18] MEDS ORDERED: Furosemide 20 MG TAB PO SCH (15:00)
[2021-12-18] MEDS ORDERED: Warfarin Sodium 2.5 MG TAB PO SCH (17:00)
[2021-12-18] MEDS: Atorvastatin Calcium 20 MG TAB PO SCH (20:42)
[2021-12-18] MEDS ORDERED: Enoxaparin Sodium 60 MG/0.6 ML SYRINGE SC SCH (21:00)
[2021-12-19 04:04] LABS: #Eosinphils 0.2 thou/uL (0.0-0.7); #Lymphocytes 1.3 thou/uL (1.20-3.40); #Monocytes 1.3 thou/uL (0.11-0.59); #Neutrophils 6.9 thou/uL (1.40-6.50); %Basophils 0.1 % (0.0-1.0); %Eosinophils 1.7 % (0.0-10.0); %Lymphocytes 13.1 % (21.0-51.0); %Monocytes 13.6 % (0.0-10.0); %Neutrophils 71.6 % (42.0-75.0); Hemoglobin 12.3 g/dL (12.0-16.0); Mean Corpuscular HGB CONC 31.1 g/dL (32.0-36.0); Mean Corpuscular Hemoglobin 27.7 pg (27.0-31.0); Mean Corpuscular Volume 89.3 fL (78.0-98.0); Mean Platelet Volume 7.3 fL (7.4-10.4); Platelet Count 324 thou/uL (130-400); RBC Distribution Width 17.1 % (11.5-14.5); Red Blood Cell (RBC) Count 4.43 mill/uL (4.20-5.40); White Blood Cell (WBC) Count 9.7 thou/uL (4.8-10.8)
[2021-12-19 04:18] LABS: Prothrombin Time 20.8 sec (12.0-14.7)
[2021-12-19 04:19] LABS: INR-International Normal Ratio 1.8
[2021-12-19 04:25] LABS: Anion Gap 13 mmol/L (10-20); BUN (Urea Nitrogen) 47 mg/dL (9.8-20.1); Calc. Creatinine Clearance 32 mL/min (70-130); Calcium 8.6 mg/dL (7.8-10.44); Carbon Dioxide 25 mmol/L (23-31); Chloride 107 mmol/L (98-107); Glucose 78 mg/dL (83-110); Potassium 3.9 mmol/L (3.5-5.1); Sodium 141 mmol/L (136-145)
[2021-12-19] MEDS ORDERED: Furosemide 20 MG TAB PO SCH (09:00)
[2021-12-19] MEDS: Enoxaparin Sodium 60 MG/0.6 ML SYRINGE SC SCH (10:49)
[2021-12-19] MEDS: Sterile Water 10 ML VIAL FS SCH ×2 (10:50→20:21)
[2021-12-19] MEDS: acetaZOLAMIDE Sodium 500 mg Vial IVP SCH ×2 (10:50→20:21)
[2021-12-19] MEDS: Allopurinol 100 MG TAB PO SCH (10:51)
[2021-12-19 15:09] VITALS: BMI 24.4
[2021-12-19 15:42] VITALS: BP 107/65
[2021-12-19] MEDS ORDERED: Warfarin Sodium 5 MG TAB PO SCH (17:00)
[2021-12-19] MEDS: Atorvastatin Calcium 20 MG TAB PO SCH (20:21)
[2021-12-20 04:00] LABS: #Eosinphils 0.3 thou/uL (0.0-0.7); #Lymphocytes 1.3 thou/uL (1.20-3.40); #Neutrophils 6.2 thou/uL (1.40-6.50); %Basophils 0.1 % (0.0-1.0); %Eosinophils 3.5 % (0.0-10.0); %Lymphocytes 14.5 % (21.0-51.0); %Monocytes 11.3 % (0.0-10.0); %Neutrophils 70.5 % (42.0-75.0); Hemoglobin 12.1 g/dL (12.0-16.0); Mean Corpuscular HGB CONC 31.8 g/dL (32.0-36.0); Mean Corpuscular Hemoglobin 28.6 pg (27.0-31.0); Mean Corpuscular Volume 89.8 fL (78.0-98.0); Mean Platelet Volume 7.8 fL (7.4-10.4); Platelet Count 283 thou/uL (130-400); RBC Distribution Width 17.4 % (11.5-14.5); Red Blood Cell (RBC) Count 4.21 mill/uL (4.20-5.40); White Blood Cell (WBC) Count 8.8 thou/uL (4.8-10.8)
[2021-12-20 04:22] LABS: Anion Gap 14 mmol/L (10-20); BUN (Urea Nitrogen) 43 mg/dL (9.8-20.1); Calc. Creatinine Clearance 32 mL/min (70-130); Calcium 8.4 mg/dL (7.8-10.44); Carbon Dioxide 23 mmol/L (23-31); Chloride 109 mmol/L (98-107); Glucose 73 mg/dL (83-110); Potassium 4.1 mmol/L (3.5-5.1); Sodium 142 mmol/L (136-145)
[2021-12-20 05:10] LABS: INR-International Normal Ratio 1.9; Prothrombin Time 22.2 sec (12.0-14.7)
[2021-12-20] MEDS ORDERED: Furosemide 40 MG TAB PO SCH (05:51)
[2021-12-20] MEDS ORDERED: Potassium Chloride 8 MEQ TAB PO SCH (08:00)
[2021-12-20] MEDS: acetaZOLAMIDE Sodium 500 mg Vial IVP SCH (08:32)
[2021-12-20] MEDS: Enoxaparin Sodium 60 MG/0.6 ML SYRINGE SC SCH (08:32)
[2021-12-20] MEDS: Sterile Water 10 ML VIAL FS SCH (08:33)
[2021-12-20] MEDS: Allopurinol 100 MG TAB PO SCH (08:33)
[2021-12-20 12:10] VITALS: TEMP 98
[2021-12-20] MEDS ORDERED: Warfarin Sodium 2.5 MG TAB PO SCH (17:00)
== END 2021-12-20 16:50 | DRG 291 ==
LOC: ERS 14:25 → CCU 16:42 → IMCU/EMU 12-12 17:10 → 2NO 12-13 17:04 → IMCU/EMU 12-14 04:40
PROVIDERS: ADMIT Student in an Organized Health Care Education/Training Program; ATTEND Student in an Organized Health Care Education/Training Program
PROC: 5A09457 Assistance with Respiratory Ventilation, 24-96 Consecutive Hours, Continuous Positive Airway Pressure (ICD-10-PCS; principal; 2021-12-10)
PROC: 5A09557 Assistance with Respiratory Ventilation, Greater than 96 Consecutive Hours, Continuous Positive Airway Pressure (ICD-10-PCS; 2021-12-14)
PROC: 0T9B70Z Drainage of Bladder with Drainage Device, Via Natural or Artificial Opening (ICD-10-PCS; 2021-12-17)
DX: I11.0 Hypertensive heart disease with heart failure (principal); J96.21 Acute and chronic respiratory failure with hypoxia; I50.33 Acute on chronic diastolic (congestive) heart failure; I48.21 Permanent atrial fibrillation; J44.1 Chronic obstructive pulmonary disease with (acute) exacerbation; N17.9 Acute kidney failure, unspecified; Z20.822 Contact with and (suspected) exposure to COVID-19; E78.5 Hyperlipidemia, unspecified; M10.9 Gout, unspecified; I27.22 Pulmonary hypertension due to left heart disease; I34.0 Nonrheumatic mitral (valve) insufficiency; I25.10 Atherosclerotic heart disease of native coronary artery without angina pectoris; R33.9 Retention of urine, unspecified; D72.829 Elevated white blood cell count, unspecified; T38.0X5A Adverse effect of glucocorticoids and synthetic analogues, initial encounter; Z86.73 Personal history of transient ischemic attack (TIA), and cerebral infarction without residual deficits; Z79.82 Long term (current) use of aspirin; Z79.51 Long term (current) use of inhaled steroids; Z79.02 Long term (current) use of antithrombotics/antiplatelets; Z90.49 Acquired absence of other specified parts of digestive tract; Z90.710 Acquired absence of both cervix and uterus; Z83.3 Family history of diabetes mellitus; Z82.49 Family history of ischemic heart disease and other diseases of the circulatory system; Z87.891 Personal history of nicotine dependence; Z79.01 Long term (current) use of anticoagulants
CPT/HCPCS: 36415; 36416; 36600; 71045; 80048; 80053; 81003; 81015; 82805; 83605; 83880; 84145; 84484; 85025; 85379; 85610; 85730; 87040; 87086; 93005; 93010; 94640; 94660; 96365; 96374; 96375; J0456; J0696; J1120; J1650; J1940; J2060; J2543; J2920; J3475; J3490; J7050; J7512; J7611; J7620; U0002; U0003; U0005

== ENCOUNTER 2022-04-03 10:50 | Inpatient (IN) | payer MEDICARE ==
[2022-04-03 12:22] LABS: Bilirubin Negative (Negative); Blood, Urine 2+ (Negative); Clarity Turbid (Clear); Glucose, Urine (Dipstick) Normal (Negative); Ketone, Urine Negative (Negative); Leukocyte 500 Leu/uL (Negative); Nitrite Negative (Negative); Protein, Urine (Dipstick) Negative (Neg-Trace); Specific Gravity, Urine 1.006 (1.002-1.036); Squamous Epithelial None Seen HPF (0-3); Urobilinogen Normal mg/dL (Less than 2); WBC/HPF Greater than 50 HPF (0-3); pH, Urine 7.5 (5.0-9.0)
[2022-04-03 12:24] LABS: #Eosinphils 0.1 thou/uL (0.0-0.7); #Lymphocytes 1.4 thou/uL (1.20-3.40); #Monocytes 0.9 thou/uL (0.11-0.59); #Neutrophils 5.3 thou/uL (1.40-6.50); %Basophils 0.1 % (0.0-1.0); %Eosinophils 1.1 % (0.0-10.0); %Lymphocytes 18.4 % (21.0-51.0); %Monocytes 11.2 % (0.0-10.0); %Neutrophils 69.3 % (42.0-75.0); Hemoglobin 11.9 g/dL (12.0-16.0); Mean Corpuscular Hemoglobin 25.9 pg (27.0-31.0); Mean Corpuscular Volume 83.5 fL (78.0-98.0); Mean Platelet Volume 7.5 fL (7.4-10.4); Platelet Count 308 thou/uL (130-400); RBC Distribution Width 15.9 % (11.5-14.5); White Blood Cell (WBC) Count 7.7 thou/uL (4.8-10.8)
[2022-04-03 12:30] LABS: Bacteria/HPF 1+ HPF (None Seen)
[2022-04-03 12:37] LABS: PTT 129.7 sec (22.9-36.1)
[2022-04-03 12:57] LABS: ALT (SGPT) 17 U/L (8-55); AST (SGOT) 33 U/L (5-34); Alkaline Phosphatase 90 U/L (40-110); Anion Gap 17 mmol/L (10-20); BUN (Urea Nitrogen) 53 mg/dL (9.8-20.1); Bilirubin, Total 0.6 mg/dL (0.2-1.2); Calc. Creatinine Clearance 0 mL/min (70-130); Calcium 9.4 mg/dL (7.8-10.44); Carbon Dioxide 23 mmol/L (23-31); Chloride 104 mmol/L (98-107); Estimated GFR 21; Globulin 3.7 g/dL (2.4-3.5); Glucose 100 mg/dL (83-110); Potassium 4.7 mmol/L (3.5-5.1); Protein, Total 7.7 g/dL (5.8-8.1); Sodium 139 mmol/L (136-145)
[2022-04-03] MEDS ORDERED: cefTRIAXone\\ROCEPHIN 1 GM VIAL ONE (13:42)
[2022-04-03] MEDS ORDERED: Ondansetron PF 4 MG/2 ML Vial IVP PRN ×2 (16:36→16:45)
[2022-04-03] MEDS ORDERED: Ondansetron ODT 4 MG TAB SL PRN (16:45)
[2022-04-03] MEDS ORDERED: Sodium Chloride 0.9% 1,000 ML IV SCH (16:45)
[2022-04-03] MEDS ORDERED: Acetaminophen 325 MG TAB PO PRN (16:45)
[2022-04-03 17:06] LABS: Troponin I Less than 0.010 ng/mL (< 0.028)
[2022-04-03] MEDS ORDERED: Meclizine HCl 12.5 MG TAB PO PRN (17:39)
[2022-04-03 20:08] LABS: Troponin I Less than 0.010 ng/mL (< 0.028)
[2022-04-03] MEDS: Amiodarone 200 MG TAB PO SCH (21:44)
[2022-04-03] MEDS: Atorvastatin Calcium 20 MG TAB PO SCH (21:44)
[2022-04-03] MEDS: Lactated Ringer's 1,000 ML IV SCH (21:52)
[2022-04-04 05:01] LABS: #Eosinphils 0.2 thou/uL (0.0-0.7); #Lymphocytes 1.5 thou/uL (1.20-3.40); #Monocytes 0.9 thou/uL (0.11-0.59); #Neutrophils 5.7 thou/uL (1.40-6.50); %Basophils 0.3 % (0.0-1.0); %Eosinophils 1.9 % (0.0-10.0); %Lymphocytes 18.5 % (21.0-51.0); %Monocytes 10.4 % (0.0-10.0); %Neutrophils 68.9 % (42.0-75.0); Hemoglobin 10.5 g/dL (12.0-16.0); Mean Corpuscular HGB CONC 30.8 g/dL (32.0-36.0); Mean Corpuscular Hemoglobin 25.8 pg (27.0-31.0); Mean Platelet Volume 7.6 fL (7.4-10.4); Platelet Count 273 thou/uL (130-400); RBC Distribution Width 15.7 % (11.5-14.5); Red Blood Cell (RBC) Count 4.06 mill/uL (4.20-5.40); White Blood Cell (WBC) Count 8.3 thou/uL (4.8-10.8)
[2022-04-04 05:13] LABS: INR-International Normal Ratio 1.7; Prothrombin Time 20.7 sec (12.0-14.7)
[2022-04-04 05:15] LABS: PTT 86.9 sec (22.9-36.1)
[2022-04-04 05:27] LABS: Anion Gap 13 mmol/L (10-20); BUN (Urea Nitrogen) 43 mg/dL (9.8-20.1); Calc. Creatinine Clearance 23 mL/min (70-130); Calcium 8.8 mg/dL (7.8-10.44); Carbon Dioxide 23 mmol/L (23-31); Chloride 110 mmol/L (98-107); Estimated GFR 26; Glucose 86 mg/dL (83-110); Potassium 3.8 mmol/L (3.5-5.1); Sodium 142 mmol/L (136-145)
[2022-04-04] MEDS: Lactated Ringer's 1,000 ML IV SCH (08:09)
[2022-04-04] MEDS: Allopurinol 100 MG TAB PO SCH (08:09)
[2022-04-04] MEDS: Amiodarone 200 MG TAB PO SCH (08:10)
[2022-04-04] MEDS ORDERED: FLU VACC QS2022-23(65YR UP)/PF 240 MCG/0.7 ML SYRINGE IM ONE (09:00)
[2022-04-04] MEDS ORDERED: Lidocaine 2% Viscous Solution 20 ML, Aluminum & Magnesium Hydroxide 30 ML, Donnatal Eli... SSW SCH (09:15)
[2022-04-04 11:11] LABS: Magnesium 1.9 mg/dL (1.6-2.6)
[2022-04-04] MEDS: cefTRIAXone\\ROCEPHIN 1 GM in Sodium Chloride 0.9% 100 ML IVPB SCH (14:55)
[2022-04-04] MEDS: Acetaminophen 325 MG TAB PO PRN (18:22)
[2022-04-04] MEDS: Atorvastatin Calcium 20 MG TAB PO SCH (21:25)
[2022-04-05 05:06] LABS: #Basophils 0.1 thou/uL (0.0-0.2); #Eosinphils 0.3 thou/uL (0.0-0.7); #Lymphocytes 1.6 thou/uL (1.20-3.40); #Monocytes 1.4 thou/uL (0.11-0.59); #Neutrophils 8.1 thou/uL (1.40-6.50); %Basophils 0.5 % (0.0-1.0); %Eosinophils 2.5 % (0.0-10.0); %Lymphocytes 14.1 % (21.0-51.0); %Monocytes 11.9 % (0.0-10.0); %Neutrophils 71.1 % (42.0-75.0); Hemoglobin 11.4 g/dL (12.0-16.0); Mean Corpuscular HGB CONC 30.5 g/dL (32.0-36.0); Mean Corpuscular Hemoglobin 25.9 pg (27.0-31.0); Mean Corpuscular Volume 84.8 fL (78.0-98.0); Mean Platelet Volume 7.8 fL (7.4-10.4); Platelet Count 259 thou/uL (130-400); White Blood Cell (WBC) Count 11.4 thou/uL (4.8-10.8)
[2022-04-05 05:24] LABS: Anion Gap 12 mmol/L (10-20); BUN (Urea Nitrogen) 35 mg/dL (9.8-20.1); Calc. Creatinine Clearance 26 mL/min (70-130); Calcium 8.8 mg/dL (7.8-10.44); Carbon Dioxide 23 mmol/L (23-31); Chloride 107 mmol/L (98-107); Estimated GFR 31; Glucose 121 mg/dL (83-110); Potassium 4.1 mmol/L (3.5-5.1); Sodium 138 mmol/L (136-145)
[2022-04-05] MEDS: Amiodarone 200 MG TAB PO SCH (10:09)
[2022-04-05] MEDS: Allopurinol 100 MG TAB PO SCH (10:13)
[2022-04-05 10:23] LABS: INR-International Normal Ratio 1.5; Prothrombin Time 17.8 sec (12.0-14.7)
[2022-04-05 10:25] LABS: PTT 74.8 sec (22.9-36.1)
[2022-04-05] MEDS ORDERED: Meclizine HCl 12.5 MG TAB PO SCH (12:00)
[2022-04-05] MEDS: cefTRIAXone\\ROCEPHIN 1 GM in Sodium Chloride 0.9% 100 ML IVPB SCH (14:48)
[2022-04-05] MEDS: BSS Opth Solution 15ml BOT EA EYE SCH ×2 (19:01→20:25)
[2022-04-05] MEDS ORDERED: Artificial Tear Sol 15 ML BOT EA EYE PRN (20:05)
[2022-04-05] MEDS: Atorvastatin Calcium 20 MG TAB PO SCH (20:45)
[2022-04-05] MEDS: Famotidine 20 MG TAB PO SCH (20:45)
[2022-04-05 21:18] VITALS: BMI 24.9
[2022-04-06 04:29] LABS: #Eosinphils 0.1 thou/uL (0.0-0.7); #Lymphocytes 1.5 thou/uL (1.20-3.40); #Monocytes 1.2 thou/uL (0.11-0.59); #Neutrophils 6.5 thou/uL (1.40-6.50); %Basophils 0.1 % (0.0-1.0); %Eosinophils 1.5 % (0.0-10.0); %Lymphocytes 16.5 % (21.0-51.0); %Monocytes 12.8 % (0.0-10.0); %Neutrophils 69.2 % (42.0-75.0); Hemoglobin 11.2 g/dL (12.0-16.0); Mean Corpuscular HGB CONC 30.4 g/dL (32.0-36.0); Mean Corpuscular Hemoglobin 26.1 pg (27.0-31.0); Mean Corpuscular Volume 85.9 fL (78.0-98.0); Mean Platelet Volume 7.7 fL (7.4-10.4); Platelet Count 240 thou/uL (130-400); RBC Distribution Width 15.9 % (11.5-14.5); Red Blood Cell (RBC) Count 4.29 mill/uL (4.20-5.40); White Blood Cell (WBC) Count 9.4 thou/uL (4.8-10.8)
[2022-04-06 05:01] LABS: Anion Gap 15 mmol/L (10-20); BUN (Urea Nitrogen) 27 mg/dL (9.8-20.1); Calc. Creatinine Clearance 32 mL/min (70-130); Calcium 8.6 mg/dL (7.8-10.44); Carbon Dioxide 17 mmol/L (23-31); Chloride 108 mmol/L (98-107); Estimated GFR 38; Glucose 86 mg/dL (83-110); Potassium 4.3 mmol/L (3.5-5.1); Sodium 136 mmol/L (136-145)
[2022-04-06] MEDS: Amiodarone 200 MG TAB PO SCH (09:42)
[2022-04-06] MEDS: Allopurinol 100 MG TAB PO SCH (09:42)
[2022-04-06] MEDS: Famotidine 20 MG TAB PO SCH ×2 (10:39→20:49)
[2022-04-06] MEDS: cefTRIAXone\\ROCEPHIN 1 GM in Sodium Chloride 0.9% 100 ML IVPB SCH (14:08)
[2022-04-06] MEDS: Rivaroxaban 15 MG TAB PO SCH (20:48)
[2022-04-06] MEDS: Atorvastatin Calcium 20 MG TAB PO SCH (20:49)
[2022-04-06] MEDS ORDERED: Non-Formulary Item 1 EACH (Rivaroxaban [Xarelto] 20 MG Tablet) PO SCH (21:00)
[2022-04-07 05:51] LABS: #Basophils 0.1 thou/uL (0.0-0.2); #Eosinphils 0.1 thou/uL (0.0-0.7); #Lymphocytes 1.2 thou/uL (1.20-3.40); #Monocytes 0.8 thou/uL (0.11-0.59); #Neutrophils 5.7 thou/uL (1.40-6.50); %Basophils 0.6 % (0.0-1.0); %Eosinophils 1.7 % (0.0-10.0); %Lymphocytes 15.3 % (21.0-51.0); %Monocytes 10.2 % (0.0-10.0); %Neutrophils 72.2 % (42.0-75.0); Mean Corpuscular HGB CONC 30.9 g/dL (32.0-36.0); Mean Corpuscular Hemoglobin 26.2 pg (27.0-31.0); Mean Corpuscular Volume 84.9 fL (78.0-98.0); Mean Platelet Volume 7.6 fL (7.4-10.4); Platelet Count 238 thou/uL (130-400); RBC Distribution Width 15.7 % (11.5-14.5); Red Blood Cell (RBC) Count 3.81 mill/uL (4.20-5.40)
[2022-04-07 06:10] LABS: Anion Gap 13 mmol/L (10-20); BUN (Urea Nitrogen) 25 mg/dL (9.8-20.1); Calc. Creatinine Clearance 33 mL/min (70-130); Calcium 8.7 mg/dL (7.8-10.44); Carbon Dioxide 22 mmol/L (23-31); Chloride 109 mmol/L (98-107); Estimated GFR 40; Glucose 92 mg/dL (83-110); Potassium 4.3 mmol/L (3.5-5.1); Sodium 140 mmol/L (136-145)
[2022-04-07] MEDS: Allopurinol 100 MG TAB PO SCH (09:53)
[2022-04-07] MEDS: Amiodarone 200 MG TAB PO SCH (09:53)
[2022-04-07] MEDS: Famotidine 20 MG TAB PO SCH (20:46)
[2022-04-07] MEDS: Atorvastatin Calcium 20 MG TAB PO SCH (20:46)
[2022-04-07] MEDS: Rivaroxaban 15 MG TAB PO SCH (20:46)
[2022-04-07] MEDS: Acetaminophen 325 MG TAB PO PRN (22:13)
[2022-04-08 06:01] LABS: #Eosinphils 0.2 thou/uL (0.0-0.7); #Lymphocytes 1.2 thou/uL (1.20-3.40); #Monocytes 0.9 thou/uL (0.11-0.59); #Neutrophils 6.5 thou/uL (1.40-6.50); %Basophils 0.5 % (0.0-1.0); %Eosinophils 2.3 % (0.0-10.0); %Lymphocytes 13.5 % (21.0-51.0); %Monocytes 10.2 % (0.0-10.0); %Neutrophils 73.5 % (42.0-75.0); Hemoglobin 10.3 g/dL (12.0-16.0); Mean Corpuscular HGB CONC 30.2 g/dL (32.0-36.0); Mean Corpuscular Hemoglobin 25.9 pg (27.0-31.0); Mean Corpuscular Volume 85.5 fL (78.0-98.0); Mean Platelet Volume 7.6 fL (7.4-10.4); Platelet Count 249 thou/uL (130-400); Red Blood Cell (RBC) Count 3.99 mill/uL (4.20-5.40); White Blood Cell (WBC) Count 8.9 thou/uL (4.8-10.8)
[2022-04-08 06:12] LABS: INR-International Normal Ratio 3.6; Prothrombin Time 36.6 sec (12.0-14.7)
[2022-04-08 06:17] LABS: PTT 145.4 sec (22.9-36.1)
[2022-04-08 06:23] LABS: Anion Gap 9 mmol/L (10-20); BUN (Urea Nitrogen) 27 mg/dL (9.8-20.1); Calc. Creatinine Clearance 32 mL/min (70-130); Calcium 8.6 mg/dL (7.8-10.44); Carbon Dioxide 27 mmol/L (23-31); Chloride 108 mmol/L (98-107); Estimated GFR 39; Glucose 99 mg/dL (83-110); Potassium 4.3 mmol/L (3.5-5.1); Sodium 140 mmol/L (136-145)
[2022-04-08] MEDS ORDERED: Meclizine HCl 12.5 MG TAB PO SCH (07:15)
[2022-04-08] MEDS ORDERED: Furosemide 40 MG TAB PO SCH (09:00)
[2022-04-08] MEDS: Allopurinol 100 MG TAB PO SCH (09:32)
[2022-04-08] MEDS: Amiodarone 200 MG TAB PO SCH (09:32)
[2022-04-08] MEDS: Famotidine 20 MG TAB PO SCH (20:06)
[2022-04-08] MEDS: Atorvastatin Calcium 20 MG TAB PO SCH (20:06)
[2022-04-09 05:17] LABS: #Eosinphils 0.2 thou/uL (0.0-0.7); #Lymphocytes 1.4 thou/uL (1.20-3.40); #Monocytes 1.2 thou/uL (0.11-0.59); #Neutrophils 7.6 thou/uL (1.40-6.50); %Basophils 0.1 % (0.0-1.0); %Eosinophils 1.9 % (0.0-10.0); %Lymphocytes 13.4 % (21.0-51.0); %Monocytes 11.4 % (0.0-10.0); %Neutrophils 73.3 % (42.0-75.0); Hemoglobin 10.4 g/dL (12.0-16.0); Mean Corpuscular Hemoglobin 25.2 pg (27.0-31.0); Mean Platelet Volume 7.7 fL (7.4-10.4); Platelet Count 247 thou/uL (130-400); RBC Distribution Width 16.2 % (11.5-14.5); Red Blood Cell (RBC) Count 4.12 mill/uL (4.20-5.40); White Blood Cell (WBC) Count 10.4 thou/uL (4.8-10.8)
[2022-04-09 05:29] LABS: Anion Gap 14 mmol/L (10-20); BUN (Urea Nitrogen) 24 mg/dL (9.8-20.1); Calc. Creatinine Clearance 33 mL/min (70-130); Calcium 8.8 mg/dL (7.8-10.44); Carbon Dioxide 23 mmol/L (23-31); Chloride 108 mmol/L (98-107); Estimated GFR 39; Glucose 84 mg/dL (83-110); Potassium 4.7 mmol/L (3.5-5.1); Sodium 140 mmol/L (136-145)
[2022-04-09 09:29] LABS: INR-International Normal Ratio 1.7
[2022-04-09 09:31] LABS: PTT 100.5 sec (22.9-36.1)
[2022-04-09] MEDS: Amiodarone 200 MG TAB PO SCH (10:43)
[2022-04-09] MEDS: Allopurinol 100 MG TAB PO SCH (10:43)
[2022-04-09] MEDS ORDERED: PROPOFOL 20 ML ONE (14:46)
[2022-04-09] MEDS: Rivaroxaban 10 MG TAB PO SCH (18:28)
[2022-04-09] MEDS: Famotidine 20 MG TAB PO SCH (22:12)
[2022-04-09] MEDS: Atorvastatin Calcium 20 MG TAB PO SCH (22:12)
[2022-04-10 09:31] LABS: Chloride 107 mmol/L (98-107); Potassium 4.5 mmol/L (3.5-5.1); Sodium 141 mmol/L (136-145)
[2022-04-10 09:42] LABS: Anion Gap 17 mmol/L (10-20); BUN (Urea Nitrogen) 31 mg/dL (9.8-20.1); Calc. Creatinine Clearance 25 mL/min (70-130); Calcium 9.3 mg/dL (7.8-10.44); Carbon Dioxide 21 mmol/L (23-31); Estimated GFR 28; Glucose 135 mg/dL (83-110)
[2022-04-10] MEDS: Allopurinol 100 MG TAB PO SCH (09:51)
[2022-04-10] MEDS: Amiodarone 200 MG TAB PO SCH (09:51)
[2022-04-10] MEDS: Rivaroxaban 10 MG TAB PO SCH (17:09)
[2022-04-10] MEDS ORDERED: Furosemide 20 MG TAB PO SCH (18:00)
[2022-04-10] MEDS: Famotidine 20 MG TAB PO SCH (19:58)
[2022-04-10] MEDS: Atorvastatin Calcium 20 MG TAB PO SCH (19:58)
[2022-04-11 05:16] LABS: Anion Gap 16 mmol/L (10-20); BUN (Urea Nitrogen) 29 mg/dL (9.8-20.1); Calc. Creatinine Clearance 29 mL/min (70-130); Calcium 8.7 mg/dL (7.8-10.44); Carbon Dioxide 21 mmol/L (23-31); Chloride 106 mmol/L (98-107); Estimated GFR 34; Glucose 94 mg/dL (83-110); Potassium 4.6 mmol/L (3.5-5.1); Sodium 138 mmol/L (136-145)
[2022-04-11] MEDS: Allopurinol 100 MG TAB PO SCH (08:13)
[2022-04-11] MEDS: Amiodarone 200 MG TAB PO SCH (08:13)
[2022-04-11] MEDS: Furosemide 20 MG TAB PO SCH (10:01)
[2022-04-11] MEDS ORDERED: Albuterol 200 PUFF (6.7GM INHALER) INH PRN (11:06)
[2022-04-11] MEDS ORDERED: Albuterol Sulfate 2.5 mg/3 ml Neb NEB PRN (11:11)
[2022-04-11] MEDS: Rivaroxaban 10 MG TAB PO SCH (19:48)
[2022-04-11] MEDS: Famotidine 20 MG TAB PO SCH (22:17)
[2022-04-11] MEDS: Atorvastatin Calcium 20 MG TAB PO SCH (22:17)
[2022-04-12] MEDS: Acetaminophen 325 MG TAB PO PRN (05:24)
[2022-04-12 05:29] LABS: Anion Gap 13 mmol/L (10-20); BUN (Urea Nitrogen) 21 mg/dL (9.8-20.1); Calc. Creatinine Clearance 33 mL/min (70-130); Calcium 8.4 mg/dL (7.8-10.44); Carbon Dioxide 22 mmol/L (23-31); Chloride 108 mmol/L (98-107); Estimated GFR 39; Glucose 99 mg/dL (83-110); Potassium 4.3 mmol/L (3.5-5.1); Sodium 139 mmol/L (136-145)
[2022-04-12] MEDS: Allopurinol 100 MG TAB PO SCH (10:15)
[2022-04-12] MEDS: Amiodarone 200 MG TAB PO SCH (10:15)
[2022-04-12] MEDS: Furosemide 20 MG TAB PO SCH (10:15)
[2022-04-12] MEDS: Rivaroxaban 10 MG TAB PO SCH (17:11)
[2022-04-12] MEDS: Atorvastatin Calcium 20 MG TAB PO SCH (21:06)
[2022-04-12] MEDS: Famotidine 20 MG TAB PO SCH (21:06)
[2022-04-13 05:09] LABS: Anion Gap 13 mmol/L (10-20); BUN (Urea Nitrogen) 16 mg/dL (9.8-20.1); Calc. Creatinine Clearance 33 mL/min (70-130); Calcium 8.7 mg/dL (7.8-10.44); Carbon Dioxide 25 mmol/L (23-31); Chloride 107 mmol/L (98-107); Estimated GFR 43; Glucose 99 mg/dL (83-110); Potassium 4.1 mmol/L (3.5-5.1); Sodium 141 mmol/L (136-145)
[2022-04-13] MEDS ORDERED: Furosemide 40 MG TAB PO SCH (07:30)
[2022-04-13] MEDS: Allopurinol 100 MG TAB PO SCH (08:29)
[2022-04-13] MEDS: Amiodarone 200 MG TAB PO SCH (08:29)
[2022-04-13 12:04] VITALS: BP 130/61; TEMP 97.8
== END 2022-04-13 15:43 | disposition home health service (06) | DRG 682 ==
LOC: ERS 10:50 → 2SW 15:20 → OBSVTOIN 04-04 18:42
PROVIDERS: ADMIT Student in an Organized Health Care Education/Training Program; ATTEND Student in an Organized Health Care Education/Training Program
PROC: 5A2204Z Restoration of Cardiac Rhythm, Single (ICD-10-PCS; principal; 2022-04-10)
DX: N17.9 Acute kidney failure, unspecified (principal); I50.43 Acute on chronic combined systolic (congestive) and diastolic (congestive) heart failure; J96.01 Acute respiratory failure with hypoxia; I13.0 Hypertensive heart and chronic kidney disease with heart failure and stage 1 through stage 4 chronic kidney disease, or unspecified chronic kidney disease; I48.19 Other persistent atrial fibrillation; N39.0 Urinary tract infection, site not specified; I48.92 Unspecified atrial flutter; I42.9 Cardiomyopathy, unspecified; Z51.5 Encounter for palliative care; I48.0 Paroxysmal atrial fibrillation; E86.0 Dehydration; J44.9 Chronic obstructive pulmonary disease, unspecified; I25.10 Atherosclerotic heart disease of native coronary artery without angina pectoris; R94.31 Abnormal electrocardiogram [ECG] [EKG]; E78.5 Hyperlipidemia, unspecified; M10.9 Gout, unspecified; E86.1 Hypovolemia; N18.9 Chronic kidney disease, unspecified; R53.81 Other malaise; I34.0 Nonrheumatic mitral (valve) insufficiency; R91.1 Solitary pulmonary nodule; Z79.899 Other long term (current) drug therapy; Z90.710 Acquired absence of both cervix and uterus; Z87.891 Personal history of nicotine dependence; Z82.49 Family history of ischemic heart disease and other diseases of the circulatory system; Z90.49 Acquired absence of other specified parts of digestive tract; Z83.3 Family history of diabetes mellitus; Z98.890 Other specified postprocedural states; Z79.01 Long term (current) use of anticoagulants; Z20.822 Contact with and (suspected) exposure to COVID-19
CPT/HCPCS: 36415; 71045; 71250; 80048; 80053; 81003; 81015; 83735; 83880; 84145; 84443; 84484; 85025; 85610; 85730; 87811; 92960; 93005; 93010; 93312; 93798; 94640; 94760; 96365; 96376; G0378; J0696; J2704; J3490; J7120; J7620; U0003; U0005

== ENCOUNTER 2022-05-29 12:07 | Outpatient (CLI) | payer MEDICARE | END 2022-05-29 12:08 | disposition home or self-care (01) | LOC: PET 12:07 | PROVIDERS: ATTEND Internal Medicine | DX: J96.11 Chronic respiratory failure with hypoxia (principal); J44.9 Chronic obstructive pulmonary disease, unspecified; R91.8 Other nonspecific abnormal finding of lung field | CPT/HCPCS: 78815; A9552 ==

== ENCOUNTER 2022-06-26 08:27 | Day surgery (SDC) | payer MEDICARE ==
[2022-06-20 08:39] VITALS: BMI 24.0
[2022-06-26 08:54] LABS: INR-International Normal Ratio 1.2; Prothrombin Time 15.2 sec (12.0-14.7)
[2022-06-26 08:55] LABS: PTT 62.2 sec (22.9-36.1)
[2022-06-26 09:36] LABS: #Lymphocytes 1.4 thou/uL (1.20-3.40); #Monocytes 0.9 thou/uL (0.11-0.59); #Neutrophils 7.7 thou/uL (1.40-6.50); %Basophils 0.1 % (0.0-1.0); %Eosinophils 0.5 % (0.0-10.0); %Lymphocytes 13.7 % (21.0-51.0); %Monocytes 8.8 % (0.0-10.0); Hemoglobin 8.2 g/dL (12.0-16.0); Mean Corpuscular HGB CONC 30.2 g/dL (32.0-36.0); Mean Corpuscular Hemoglobin 22.1 pg (27.0-31.0); Mean Corpuscular Volume 73.1 fl (78.0-98.0); Mean Platelet Volume 8.3 fL (7.4-10.4); Platelet Count 303 10x3/uL (130-400); RBC Distribution Width 17.7 % (11.5-14.5); Red Blood Cell (RBC) Count 3.72 mill/uL (4.20-5.40)
[2022-06-26 09:38] VITALS: BP 143/58; TEMP 98.2
[2022-06-26 10:05] LABS: Hypochromia SLIGHT = 6-15 cells (100X) (0-5/hpf); MDiff Complete? YES; Microcytosis SLIGHT = 6-15 cells (100X) (0-5/hpf); Platelet Morphology Comment Appears Adequate; Polychromasia SLIGHT = 2-3 cells (100X) (0-2/hpf)
== END 2022-06-26 13:40 | disposition home or self-care (01) ==
LOC: CT 08:27
PROVIDERS: ATTEND Internal Medicine
PROC: 0BBG3ZX Excision of Left Upper Lung Lobe, Percutaneous Approach, Diagnostic (ICD-10-PCS; principal; 2022-06-26)
DX: C34.12 Malignant neoplasm of upper lobe, left bronchus or lung (principal); J44.9 Chronic obstructive pulmonary disease, unspecified; F17.210 Nicotine dependence, cigarettes, uncomplicated; I11.0 Hypertensive heart disease with heart failure; I50.9 Heart failure, unspecified; M10.9 Gout, unspecified; I48.91 Unspecified atrial fibrillation; E78.5 Hyperlipidemia, unspecified; J90 Pleural effusion, not elsewhere classified; Z79.01 Long term (current) use of anticoagulants; Z79.899 Other long term (current) drug therapy
CPT/HCPCS: 32408; 71045; 77012; 85025; 85610; 85730; 88305; 88333; 88334; 88341; 88342

== ENCOUNTER 2022-07-27 11:10 | Inpatient (IN) | payer MEDICARE ==
[2022-07-27] MEDS ORDERED: Furosemide 40 MG/4 ML VIAL ONE (11:57)
[2022-07-27] MEDS ORDERED: Aspirin Chewable 81 MG TAB ONE (11:57)
[2022-07-27] MEDS ORDERED: Nitroglycerin 2% Ointment 1 INCH/1 GM Packet ONE (11:57)
[2022-07-27 12:16] LABS: #Eosinphils 0.1 thou/uL (0.0-0.7); #Lymphocytes 0.9 thou/uL (1.20-3.40); #Monocytes 0.6 thou/uL (0.11-0.59); #Neutrophils 7.1 thou/uL (1.40-6.50); %Basophils 0.2 % (0.0-1.0); %Eosinophils 0.7 % (0.0-10.0); %Monocytes 7.3 % (0.0-10.0); %Neutrophils 81.8 % (42.0-75.0); Hemoglobin 8.3 g/dL (12.0-16.0); Mean Corpuscular HGB CONC 30.1 g/dL (32.0-36.0); Mean Corpuscular Hemoglobin 21.4 pg (27.0-31.0); Mean Platelet Volume 9.1 fL (7.4-10.4); Platelet Count 315 10x3/uL (130-400); RBC Distribution Width 18.4 % (11.5-14.5); Red Blood Cell (RBC) Count 3.88 mill/uL (4.20-5.40); White Blood Cell (WBC) Count 8.7 10x3/uL (4.8-10.8)
[2022-07-27 12:34] LABS: ALT (SGPT) 8 U/L (8-55); AST (SGOT) 15 U/L (5-34); Albumin 3.4 g/dL (3.4-4.8); Alkaline Phosphatase 88 U/L (40-110); Anion Gap 17 mmol/L (10-20); BUN (Urea Nitrogen) 20 mg/dL (9.8-20.1); Bilirubin, Total 1.2 mg/dL (0.2-1.2); CK (CPK) 49 U/L (29-168); Calc. Creatinine Clearance 0 mL/min (70-130); Calcium 9.2 mg/dL (7.8-10.44); Carbon Dioxide 28 mmol/L (23-31); Chloride 101 mmol/L (98-107); Estimated GFR 37; Globulin 3.9 g/dL (2.4-3.5); Glucose 93 mg/dL (83-110); Lipase 26 U/L (8-78); Potassium 3.8 mmol/L (3.5-5.1); Protein, Total 7.3 g/dL (5.8-8.1); Sodium 142 mmol/L (136-145)
[2022-07-27 12:53] LABS: Bilirubin Negative (Negative); Blood, Urine Negative (Negative); Glucose, Urine (Dipstick) Normal (Negative); Ketone, Urine Negative (Negative); Leukocyte Negative Leu/uL (Negative); Nitrite Negative (Negative); Protein, Urine (Dipstick) Negative (Neg-Trace); Specific Gravity, Urine 1.009 (1.002-1.036); Urobilinogen Normal mg/dL (Less than 2); pH, Urine 7.5 (5.0-9.0)
[2022-07-27 13:01] LABS: Clarity Hazy (Clear)
[2022-07-27 16:55] LABS: SARS-CoV-2 NAA Rapid Test Not Detected (NotDetected)
[2022-07-27] MEDS ORDERED: Furosemide 40 MG/4 ML VIAL SLOW IVP SCH (18:15)
[2022-07-27 18:26] VITALS: BMI 25.0
[2022-07-27] MEDS: Rivaroxaban 10 MG TAB PO SCH (19:29)
[2022-07-27] MEDS: Acetaminophen 325 MG TAB PO PRN (19:33)
[2022-07-27] MEDS: Atorvastatin Calcium 20 MG TAB PO SCH (19:34)
[2022-07-28] MEDS ORDERED: Furosemide 20 MG/2 ML VIAL SLOW IVP SCH (02:30)
[2022-07-28 03:46] LABS: #Eosinphils 0.1 thou/uL (0.0-0.7); #Lymphocytes 0.8 thou/uL (1.20-3.40); #Neutrophils 8.2 thou/uL (1.40-6.50); %Basophils 0.1 % (0.0-1.0); %Eosinophils 0.7 % (0.0-10.0); %Lymphocytes 7.6 % (21.0-51.0); %Neutrophils 81.6 % (42.0-75.0); Hemoglobin 7.2 g/dL (12.0-16.0); Mean Corpuscular Hemoglobin 20.8 pg (27.0-31.0); Mean Corpuscular Volume 69.2 fl (78.0-98.0); Mean Platelet Volume 9.7 fL (7.4-10.4); Platelet Count 265 10x3/uL (130-400); RBC Distribution Width 18.6 % (11.5-14.5); Red Blood Cell (RBC) Count 3.46 mill/uL (4.20-5.40); White Blood Cell (WBC) Count 10.1 10x3/uL (4.8-10.8)
[2022-07-28 04:00] LABS: Anion Gap 12 mmol/L (10-20); BUN (Urea Nitrogen) 22 mg/dL (9.8-20.1); Calc. Creatinine Clearance 30 mL/min (70-130); Calcium 8.4 mg/dL (7.8-10.44); Carbon Dioxide 34 mmol/L (23-31); Chloride 101 mmol/L (98-107); Estimated GFR 35; Glucose 87 mg/dL (83-110); Magnesium 1.9 mg/dL (1.6-2.6); Phosphorus 3.8 mg/dL (2.3-4.7); Potassium 3.3 mmol/L (3.5-5.1); Sodium 144 mmol/L (136-145)
[2022-07-28] MEDS: Acetaminophen 325 MG TAB PO PRN ×2 (05:45→17:36)
[2022-07-28] MEDS ORDERED: Potassium Chloride 20 MEQ TAB PO SCH (06:00)
[2022-07-28 07:25] LABS: Iron 45 ug/dL (50-170); Iron Binding Capacity, Total 290 mcg/dL (265-497)
[2022-07-28] MEDS: Allopurinol 100 MG TAB PO SCH (08:27)
[2022-07-28] MEDS: Amiodarone 200 MG TAB PO SCH (08:27)
[2022-07-28] MEDS ORDERED: Furosemide 40 MG/4 ML VIAL SLOW IVP SCH (09:00)
[2022-07-28] MEDS ORDERED: Ipratropium/Albuterol 3 ML NEB NEB PRN (14:18)
[2022-07-28] MEDS ORDERED: Magnesium 2 GM/50 ML(in water) 1 GM in Premix Bag 1 BAG IVPB SCH (15:30)
[2022-07-28 15:35] LABS: #Eosinphils 0.1 thou/uL (0.0-0.7); #Lymphocytes 1.2 thou/uL (1.20-3.40); #Monocytes 1.4 thou/uL (0.11-0.59); #Neutrophils 8.2 thou/uL (1.40-6.50); %Basophils 0.1 % (0.0-1.0); %Lymphocytes 11.2 % (21.0-51.0); %Neutrophils 74.7 % (42.0-75.0); Hemoglobin 7.8 g/dL (12.0-16.0); Mean Corpuscular HGB CONC 29.1 g/dL (32.0-36.0); Mean Corpuscular Hemoglobin 20.3 pg (27.0-31.0); Mean Corpuscular Volume 69.9 fl (78.0-98.0); Mean Platelet Volume 9.8 fL (7.4-10.4); Platelet Count 279 10x3/uL (130-400); RBC Distribution Width 18.5 % (11.5-14.5); Red Blood Cell (RBC) Count 3.86 mill/uL (4.20-5.40)
[2022-07-28 15:48] LABS: Anion Gap 15 mmol/L (10-20); BUN (Urea Nitrogen) 26 mg/dL (9.8-20.1); Calc. Creatinine Clearance 26 mL/min (70-130); Calcium 8.5 mg/dL (7.8-10.44); Carbon Dioxide 30 mmol/L (23-31); Chloride 101 mmol/L (98-107); Estimated GFR 31; Glucose 110 mg/dL (83-110); Potassium 3.8 mmol/L (3.5-5.1); Sodium 142 mmol/L (136-145)
[2022-07-28] MEDS: Rivaroxaban 10 MG TAB PO SCH (17:35)
[2022-07-28] MEDS: Atorvastatin Calcium 20 MG TAB PO SCH (20:51)
[2022-07-29] MEDS ORDERED: Furosemide 40 MG/4 ML VIAL SLOW IVP SCH ×4 (00:15→19:30)
[2022-07-29] MEDS: Acetaminophen 325 MG TAB PO PRN ×2 (00:21→20:19)
[2022-07-29 01:08] LABS: Creatinine, Urine 112.69 mg/dL (47-110)
[2022-07-29 07:34] LABS: Anion Gap 11 mmol/L (10-20); BUN (Urea Nitrogen) 21 mg/dL (9.8-20.1); Calc. Creatinine Clearance 27 mL/min (70-130); Calcium 8.3 mg/dL (7.8-10.44); Carbon Dioxide 34 mmol/L (23-31); Chloride 101 mmol/L (98-107); Estimated GFR 34; Glucose 88 mg/dL (83-110); Potassium 3.6 mmol/L (3.5-5.1); Sodium 142 mmol/L (136-145)
[2022-07-29 08:12] LABS: Magnesium 2.5 mg/dL (1.6-2.6)
[2022-07-29 08:15] LABS: #Eosinphils 0.1 thou/uL (0.0-0.7); #Monocytes 1.2 thou/uL (0.11-0.59); #Neutrophils 8.7 thou/uL (1.40-6.50); %Basophils 0.1 % (0.0-1.0); %Eosinophils 1.4 % (0.0-10.0); %Lymphocytes 9.3 % (21.0-51.0); %Monocytes 10.8 % (0.0-10.0); %Neutrophils 78.5 % (42.0-75.0); Hemoglobin 7.7 g/dL (12.0-16.0); Hypochromia SLIGHT = 6-15 cells (100X) (0-5/hpf); MDiff Complete? YES; Mean Corpuscular HGB CONC 29.4 g/dL (32.0-36.0); Mean Corpuscular Hemoglobin 20.6 pg (27.0-31.0); Mean Corpuscular Volume 70.3 fl (78.0-98.0); Mean Platelet Volume 9.3 fL (7.4-10.4); Microcytosis SLIGHT = 6-15 cells (100X) (0-5/hpf); Platelet Count 294 10x3/uL (130-400); Platelet Morphology Comment Appears Adequate; Polychromasia SLIGHT = 2-3 cells (100X) (0-2/hpf); RBC Distribution Width 18.4 % (11.5-14.5); Red Blood Cell (RBC) Count 3.73 mill/uL (4.20-5.40); Target Cells SLIGHT = 2-5 cells (100X) (0-1/hpf); White Blood Cell (WBC) Count 11.1 10x3/uL (4.8-10.8)
[2022-07-29] MEDS: Allopurinol 100 MG TAB PO SCH (09:22)
[2022-07-29] MEDS: Amiodarone 200 MG TAB PO SCH (09:22)
[2022-07-29] MEDS: Rivaroxaban 10 MG TAB PO SCH (17:44)
[2022-07-29] MEDS: Ipratropium/Albuterol 3 ML NEB NEB SCH ×2 (18:16→23:00)
[2022-07-29] MEDS: Atorvastatin Calcium 20 MG TAB PO SCH (20:19)
[2022-07-30] MEDS: Furosemide 40 MG/4 ML VIAL SLOW IVP SCH ×2 (05:21→15:02)
[2022-07-30 06:38] LABS: Anion Gap 15 mmol/L (10-20); BUN (Urea Nitrogen) 20 mg/dL (9.8-20.1); Calc. Creatinine Clearance 26 mL/min (70-130); Calcium 8.4 mg/dL (7.8-10.44); Carbon Dioxide 29 mmol/L (23-31); Chloride 102 mmol/L (98-107); Estimated GFR 32; Glucose 94 mg/dL (83-110); Potassium 3.8 mmol/L (3.5-5.1); Sodium 142 mmol/L (136-145)
[2022-07-30] MEDS ORDERED: Polyethylene Glycol 3350 17 GM Packet PO PRN (06:49)
[2022-07-30] MEDS: Ipratropium/Albuterol 3 ML NEB NEB SCH (07:30)
[2022-07-30 08:40] LABS: #Eosinphils 0.1 thou/uL (0.0-0.7); #Lymphocytes 0.8 thou/uL (1.20-3.40); #Monocytes 1.4 thou/uL (0.11-0.59); #Neutrophils 12.3 thou/uL (1.40-6.50); %Basophils 0.2 % (0.0-1.0); %Eosinophils 0.4 % (0.0-10.0); %Lymphocytes 5.4 % (21.0-51.0); %Monocytes 9.9 % (0.0-10.0); %Neutrophils 84.1 % (42.0-75.0); Hemoglobin 8.1 g/dL (12.0-16.0); Mean Corpuscular HGB CONC 29.2 g/dL (32.0-36.0); Mean Corpuscular Hemoglobin 20.6 pg (27.0-31.0); Mean Corpuscular Volume 70.4 fl (78.0-98.0); Mean Platelet Volume 9.7 fL (7.4-10.4); Platelet Count 292 10x3/uL (130-400); RBC Distribution Width 19.2 % (11.5-14.5); Red Blood Cell (RBC) Count 3.92 mill/uL (4.20-5.40); White Blood Cell (WBC) Count 14.6 10x3/uL (4.8-10.8)
[2022-07-30] MEDS: Ferrous Sulfate 325 MG TAB PO SCH (10:35)
[2022-07-30] MEDS: Allopurinol 100 MG TAB PO SCH (10:35)
[2022-07-30] MEDS: Amiodarone 200 MG TAB PO SCH (10:35)
[2022-07-30 10:56] LABS: Hypochromia SLIGHT = 6-15 cells (100X) (0-5/hpf); MDiff Complete? YES; Microcytosis MODERATE=15-30 cells (100X) (0-5/hpf); Platelet Morphology Comment Appears Adequate; Polychromasia MODERATE = 3-4 cells (100X) (0-2/hpf)
[2022-07-30] MEDS ORDERED: Iopamidol-370 76% 500 ML 1 ML ONE (13:00)
[2022-07-30] MEDS: Rivaroxaban 10 MG TAB PO SCH (17:17)
[2022-07-30] MEDS: Atorvastatin Calcium 20 MG TAB PO SCH (20:40)
[2022-07-30] MEDS: Acetaminophen 325 MG TAB PO PRN (20:54)
[2022-07-31 04:27] LABS: Anion Gap 13 mmol/L (10-20); BUN (Urea Nitrogen) 23 mg/dL (9.8-20.1); Calc. Creatinine Clearance 25 mL/min (70-130); Calcium 8.5 mg/dL (7.8-10.44); Carbon Dioxide 32 mmol/L (23-31); Chloride 100 mmol/L (98-107); Estimated GFR 30; Glucose 95 mg/dL (83-110); Potassium 3.8 mmol/L (3.5-5.1); Sodium 141 mmol/L (136-145)
[2022-07-31 04:36] LABS: #Eosinphils 0.1 thou/uL (0.0-0.7); #Lymphocytes 0.9 thou/uL (1.20-3.40); #Monocytes 1.4 thou/uL (0.11-0.59); #Neutrophils 8.6 thou/uL (1.40-6.50); %Basophils 0.1 % (0.0-1.0); %Eosinophils 1.2 % (0.0-10.0); %Lymphocytes 8.2 % (21.0-51.0); %Monocytes 12.5 % (0.0-10.0); Hemoglobin 7.7 g/dL (12.0-16.0); Mean Corpuscular HGB CONC 29.2 g/dL (32.0-36.0); Mean Corpuscular Hemoglobin 20.4 pg (27.0-31.0); Mean Corpuscular Volume 69.8 fl (78.0-98.0); Mean Platelet Volume 9.5 fL (7.4-10.4); Platelet Count 314 10x3/uL (130-400); RBC Distribution Width 18.8 % (11.5-14.5); Red Blood Cell (RBC) Count 3.75 mill/uL (4.20-5.40)
[2022-07-31] MEDS: Furosemide 40 MG/4 ML VIAL SLOW IVP SCH (05:32)
[2022-07-31] MEDS ORDERED: Furosemide 20 MG/2 ML VIAL SLOW IVP PRN (09:00)
[2022-07-31] MEDS: Allopurinol 100 MG TAB PO SCH (09:08)
[2022-07-31] MEDS: Amiodarone 200 MG TAB PO SCH (09:08)
[2022-07-31] MEDS: Rivaroxaban 10 MG TAB PO SCH (17:55)
[2022-07-31] MEDS: Atorvastatin Calcium 20 MG TAB PO SCH (20:14)
[2022-07-31] MEDS: Acetaminophen 325 MG TAB PO PRN (20:14)
[2022-08-01 04:20] LABS: #Eosinphils 0.1 thou/uL (0.0-0.7); #Lymphocytes 0.9 thou/uL (1.20-3.40); #Monocytes 0.9 thou/uL (0.11-0.59); #Neutrophils 5.6 thou/uL (1.40-6.50); %Basophils 0.1 % (0.0-1.0); %Eosinophils 1.9 % (0.0-10.0); %Lymphocytes 11.7 % (21.0-51.0); %Monocytes 12.1 % (0.0-10.0); %Neutrophils 74.3 % (42.0-75.0); Mean Corpuscular HGB CONC 29.7 g/dL (32.0-36.0); Mean Corpuscular Hemoglobin 21.3 pg (27.0-31.0); Mean Platelet Volume 9.4 fL (7.4-10.4); Platelet Count 331 10x3/uL (130-400); RBC Distribution Width 19.5 % (11.5-14.5); White Blood Cell (WBC) Count 7.6 10x3/uL (4.8-10.8)
[2022-08-01 04:43] LABS: Anion Gap 13 mmol/L (10-20); BUN (Urea Nitrogen) 28 mg/dL (9.8-20.1); Calc. Creatinine Clearance 23 mL/min (70-130); Calcium 8.7 mg/dL (7.8-10.44); Carbon Dioxide 30 mmol/L (23-31); Chloride 101 mmol/L (98-107); Estimated GFR 29; Glucose 84 mg/dL (83-110); Potassium 3.8 mmol/L (3.5-5.1); Sodium 140 mmol/L (136-145)
[2022-08-01] MEDS: Amiodarone 200 MG TAB PO SCH (09:08)
[2022-08-01] MEDS: Furosemide 40 MG TAB PO SCH (09:08)
[2022-08-01] MEDS: Allopurinol 100 MG TAB PO SCH (09:08)
[2022-08-01] MEDS: Ferrous Sulfate 325 MG TAB PO SCH (09:10)
[2022-08-01] MEDS: Rivaroxaban 10 MG TAB PO SCH (17:49)
[2022-08-01] MEDS: Budesonide 0.25 MG/2 ML NEB INH SCH (18:16)
[2022-08-01] MEDS: Atorvastatin Calcium 20 MG TAB PO SCH (20:30)
[2022-08-01] MEDS: Acetaminophen 325 MG TAB PO PRN (20:32)
[2022-08-02 03:54] LABS: #Eosinphils 0.2 thou/uL (0.0-0.7); #Lymphocytes 1.1 thou/uL (1.20-3.40); #Monocytes 0.9 thou/uL (0.11-0.59); #Neutrophils 5.7 thou/uL (1.40-6.50); %Basophils 0.3 % (0.0-1.0); %Eosinophils 2.1 % (0.0-10.0); %Lymphocytes 13.6 % (21.0-51.0); Hemoglobin 9.2 g/dL (12.0-16.0); Mean Corpuscular HGB CONC 29.6 g/dL (32.0-36.0); Mean Corpuscular Hemoglobin 21.7 pg (27.0-31.0); Mean Corpuscular Volume 73.2 fl (78.0-98.0); Mean Platelet Volume 9.1 fL (7.4-10.4); Platelet Count 353 10x3/uL (130-400); RBC Distribution Width 19.5 % (11.5-14.5); Red Blood Cell (RBC) Count 4.25 mill/uL (4.20-5.40); White Blood Cell (WBC) Count 7.8 10x3/uL (4.8-10.8)
[2022-08-02 04:14] LABS: Anion Gap 14 mmol/L (10-20); BUN (Urea Nitrogen) 24 mg/dL (9.8-20.1); Calc. Creatinine Clearance 23 mL/min (70-130); Carbon Dioxide 28 mmol/L (23-31); Chloride 102 mmol/L (98-107); Sodium 140 mmol/L (136-145)
[2022-08-02 04:15] LABS: Calcium 8.7 mg/dL (7.8-10.44); Estimated GFR 30; Glucose 85 mg/dL (83-110)
[2022-08-02] MEDS: Budesonide 0.25 MG/2 ML NEB INH SCH ×2 (07:32→18:17)
[2022-08-02] MEDS: Amiodarone 200 MG TAB PO SCH (09:47)
[2022-08-02] MEDS: Allopurinol 100 MG TAB PO SCH (09:47)
[2022-08-02] MEDS: Furosemide 40 MG TAB PO SCH (09:47)
[2022-08-02] MEDS: Rivaroxaban 10 MG TAB PO SCH (17:04)
[2022-08-02] MEDS: Atorvastatin Calcium 20 MG TAB PO SCH (20:46)
[2022-08-02] MEDS: Acetaminophen 325 MG TAB PO PRN (20:48)
[2022-08-03 04:53] LABS: #Basophils 0.1 thou/uL (0.0-0.2); #Eosinphils 0.1 thou/uL (0.0-0.7); #Monocytes 0.8 thou/uL (0.11-0.59); #Neutrophils 4.4 thou/uL (1.40-6.50); %Basophils 1.4 % (0.0-1.0); %Eosinophils 1.4 % (0.0-10.0); %Monocytes 12.4 % (0.0-10.0); %Neutrophils 68.8 % (42.0-75.0); Hemoglobin 9.1 g/dL (12.0-16.0); Mean Corpuscular HGB CONC 29.6 g/dL (32.0-36.0); Mean Corpuscular Hemoglobin 21.8 pg (27.0-31.0); Mean Corpuscular Volume 73.6 fl (78.0-98.0); Platelet Count 399 10x3/uL (130-400); RBC Distribution Width 19.7 % (11.5-14.5); Red Blood Cell (RBC) Count 4.19 mill/uL (4.20-5.40); White Blood Cell (WBC) Count 6.4 10x3/uL (4.8-10.8)
[2022-08-03 05:12] LABS: Anion Gap 12 mmol/L (10-20); BUN (Urea Nitrogen) 25 mg/dL (9.8-20.1); Calc. Creatinine Clearance 22 mL/min (70-130); Calcium 8.9 mg/dL (7.8-10.44); Carbon Dioxide 32 mmol/L (23-31); Chloride 100 mmol/L (98-107); Estimated GFR 27; Glucose 86 mg/dL (83-110); Potassium 4.6 mmol/L (3.5-5.1); Sodium 139 mmol/L (136-145)
[2022-08-03] MEDS: Budesonide 0.25 MG/2 ML NEB INH SCH ×2 (06:10→18:29)
[2022-08-03] MEDS: Furosemide 40 MG TAB PO SCH (09:45)
[2022-08-03] MEDS: Allopurinol 100 MG TAB PO SCH (09:45)
[2022-08-03] MEDS: Amiodarone 200 MG TAB PO SCH (09:45)
[2022-08-03] MEDS: Ferrous Sulfate 325 MG TAB PO SCH (09:45)
[2022-08-03] MEDS: Rivaroxaban 10 MG TAB PO SCH (19:10)
[2022-08-03] MEDS: Acetaminophen 325 MG TAB PO PRN (20:55)
[2022-08-03] MEDS: Atorvastatin Calcium 20 MG TAB PO SCH (20:59)
[2022-08-04] MEDS: Budesonide 0.25 MG/2 ML NEB INH SCH ×2 (07:15→18:25)
[2022-08-04] MEDS: Furosemide 40 MG TAB PO SCH (09:09)
[2022-08-04] MEDS: Amiodarone 200 MG TAB PO SCH (09:10)
[2022-08-04] MEDS: Allopurinol 100 MG TAB PO SCH (09:10)
[2022-08-04] MEDS: Rivaroxaban 10 MG TAB PO SCH (17:45)
[2022-08-04] MEDS: Atorvastatin Calcium 20 MG TAB PO SCH (19:49)
[2022-08-05] MEDS: Budesonide 0.25 MG/2 ML NEB INH SCH ×2 (07:49→20:24)
[2022-08-05] MEDS: Allopurinol 100 MG TAB PO SCH (09:01)
[2022-08-05] MEDS: Furosemide 40 MG TAB PO SCH (09:01)
[2022-08-05] MEDS: Amiodarone 200 MG TAB PO SCH (09:01)
[2022-08-05] MEDS: Rivaroxaban 10 MG TAB PO SCH (17:06)
[2022-08-05] MEDS: Atorvastatin Calcium 20 MG TAB PO SCH (20:41)
[2022-08-05] MEDS: Acetaminophen 325 MG TAB PO PRN (20:51)
[2022-08-06] MEDS: Ipratropium/Albuterol 3 ML NEB NEB PRN (07:25)
[2022-08-06] MEDS: Budesonide 0.25 MG/2 ML NEB INH SCH ×2 (07:25→18:37)
[2022-08-06] MEDS: Amiodarone 200 MG TAB PO SCH (08:51)
[2022-08-06] MEDS: Allopurinol 100 MG TAB PO SCH (08:53)
[2022-08-06] MEDS: Furosemide 40 MG TAB PO SCH (08:53)
[2022-08-06] MEDS: Ferrous Sulfate 325 MG TAB PO SCH (08:55)
[2022-08-06] MEDS: Rivaroxaban 10 MG TAB PO SCH (17:03)
[2022-08-06] MEDS: Atorvastatin Calcium 20 MG TAB PO SCH (20:11)
[2022-08-06] MEDS: Acetaminophen 325 MG TAB PO PRN (22:23)
[2022-08-07] MEDS: Budesonide 0.25 MG/2 ML NEB INH SCH ×2 (06:56→18:48)
[2022-08-07] MEDS: Furosemide 40 MG TAB PO SCH (08:40)
[2022-08-07] MEDS: Amiodarone 200 MG TAB PO SCH (08:40)
[2022-08-07] MEDS: Allopurinol 100 MG TAB PO SCH (08:40)
[2022-08-07] MEDS: Rivaroxaban 10 MG TAB PO SCH (18:20)
[2022-08-07] MEDS: Ipratropium/Albuterol 3 ML NEB NEB PRN (18:50)
[2022-08-07] MEDS: Acetaminophen 325 MG TAB PO PRN (20:44)
[2022-08-07] MEDS: Atorvastatin Calcium 20 MG TAB PO SCH (20:44)
[2022-08-08] MEDS: Ipratropium/Albuterol 3 ML NEB NEB PRN ×2 (07:06→18:28)
[2022-08-08] MEDS: Budesonide 0.25 MG/2 ML NEB INH SCH ×2 (07:07→18:27)
[2022-08-08] MEDS: Furosemide 40 MG TAB PO SCH (08:59)
[2022-08-08] MEDS: Allopurinol 100 MG TAB PO SCH (08:59)
[2022-08-08] MEDS: Amiodarone 200 MG TAB PO SCH (08:59)
[2022-08-08] MEDS: Ferrous Sulfate 325 MG TAB PO SCH (08:59)
[2022-08-08] MEDS: Rivaroxaban 10 MG TAB PO SCH (17:44)
[2022-08-08] MEDS: Acetaminophen 325 MG TAB PO PRN (20:04)
[2022-08-08] MEDS: Atorvastatin Calcium 20 MG TAB PO SCH (20:05)
[2022-08-09] MEDS: Budesonide 0.25 MG/2 ML NEB INH SCH ×2 (07:36→19:04)
[2022-08-09] MEDS: Allopurinol 100 MG TAB PO SCH (08:54)
[2022-08-09] MEDS: Amiodarone 200 MG TAB PO SCH (08:54)
[2022-08-09] MEDS: Furosemide 40 MG TAB PO SCH (08:54)
[2022-08-09] MEDS: Rivaroxaban 10 MG TAB PO SCH (17:49)
[2022-08-09] MEDS: Atorvastatin Calcium 20 MG TAB PO SCH (21:44)
[2022-08-09] MEDS: Acetaminophen 325 MG TAB PO PRN (21:46)
[2022-08-10] MEDS: Ipratropium/Albuterol 3 ML NEB NEB PRN (07:46)
[2022-08-10] MEDS: Budesonide 0.25 MG/2 ML NEB INH SCH ×2 (07:48→19:15)
[2022-08-10] MEDS: Furosemide 40 MG TAB PO SCH (08:38)
[2022-08-10] MEDS: Amiodarone 200 MG TAB PO SCH (08:38)
[2022-08-10] MEDS: Allopurinol 100 MG TAB PO SCH (08:39)
[2022-08-10] MEDS: Ferrous Sulfate 325 MG TAB PO SCH (08:39)
[2022-08-10] MEDS: Rivaroxaban 10 MG TAB PO SCH (17:46)
[2022-08-10] MEDS: Acetaminophen 325 MG TAB PO PRN (22:04)
[2022-08-10] MEDS: Atorvastatin Calcium 20 MG TAB PO SCH (22:04)
[2022-08-11 06:20] LABS: #Eosinphils 0.1 thou/uL (0.0-0.7); #Lymphocytes 1.1 thou/uL (1.20-3.40); #Monocytes 0.6 thou/uL (0.11-0.59); #Neutrophils 4.7 thou/uL (1.40-6.50); %Basophils 0.5 % (0.0-1.0); %Eosinophils 1.6 % (0.0-10.0); %Lymphocytes 16.8 % (21.0-51.0); %Monocytes 9.3 % (0.0-10.0); %Neutrophils 71.7 % (42.0-75.0); Hemoglobin 9.6 g/dL (12.0-16.0); Mean Corpuscular HGB CONC 30.9 g/dL (32.0-36.0); Mean Corpuscular Hemoglobin 23.1 pg (27.0-31.0); Mean Corpuscular Volume 74.9 fl (78.0-98.0); Mean Platelet Volume 7.7 fL (7.4-10.4); Platelet Count 499 10x3/uL (130-400); RBC Distribution Width 20.4 % (11.5-14.5); Red Blood Cell (RBC) Count 4.13 mill/uL (4.20-5.40); White Blood Cell (WBC) Count 6.6 10x3/uL (4.8-10.8)
[2022-08-11 06:42] LABS: Anion Gap 13 mmol/L (10-20); BUN (Urea Nitrogen) 28 mg/dL (9.8-20.1); Calc. Creatinine Clearance 26 mL/min (70-130); Calcium 9.2 mg/dL (7.8-10.44); Carbon Dioxide 29 mmol/L (23-31); Chloride 102 mmol/L (98-107); Estimated GFR 34; Glucose 90 mg/dL (83-110); Sodium 140 mmol/L (136-145)
[2022-08-11] MEDS: Budesonide 0.25 MG/2 ML NEB INH SCH ×2 (07:11→19:45)
[2022-08-11] MEDS: Amiodarone 200 MG TAB PO SCH (08:58)
[2022-08-11] MEDS: Furosemide 40 MG TAB PO SCH (08:59)
[2022-08-11] MEDS: Allopurinol 100 MG TAB PO SCH (08:59)
[2022-08-11] MEDS: Rivaroxaban 15 MG TAB PO SCH (18:18)
[2022-08-11] MEDS: Atorvastatin Calcium 20 MG TAB PO SCH (21:37)
[2022-08-11] MEDS: Acetaminophen 325 MG TAB PO PRN (21:37)
[2022-08-12] MEDS: Ipratropium/Albuterol 3 ML NEB NEB PRN (07:30)
[2022-08-12] MEDS: Budesonide 0.25 MG/2 ML NEB INH SCH ×2 (07:32→19:08)
[2022-08-12] MEDS: Amiodarone 200 MG TAB PO SCH (08:43)
[2022-08-12] MEDS: Allopurinol 100 MG TAB PO SCH (08:43)
[2022-08-12] MEDS: Furosemide 40 MG TAB PO SCH (08:43)
[2022-08-12] MEDS: Rivaroxaban 15 MG TAB PO SCH (18:20)
[2022-08-12] MEDS: Acetaminophen 325 MG TAB PO PRN (20:02)
[2022-08-12] MEDS: Atorvastatin Calcium 20 MG TAB PO SCH (20:02)
[2022-08-13] MEDS: Budesonide 0.25 MG/2 ML NEB INH SCH ×2 (07:03→19:32)
[2022-08-13] MEDS: Ferrous Sulfate 325 MG TAB PO SCH (08:19)
[2022-08-13] MEDS: Allopurinol 100 MG TAB PO SCH (08:19)
[2022-08-13] MEDS: Amiodarone 200 MG TAB PO SCH (08:19)
[2022-08-13] MEDS: Furosemide 40 MG TAB PO SCH (08:19)
[2022-08-13] MEDS: Rivaroxaban 15 MG TAB PO SCH (18:01)
[2022-08-13] MEDS: Acetaminophen 325 MG TAB PO PRN (19:47)
[2022-08-13] MEDS: Atorvastatin Calcium 20 MG TAB PO SCH (19:48)
[2022-08-14] MEDS: Amiodarone 200 MG TAB PO SCH (08:17)
[2022-08-14] MEDS: Furosemide 40 MG TAB PO SCH (08:17)
[2022-08-14] MEDS: Allopurinol 100 MG TAB PO SCH (08:17)
[2022-08-14] MEDS: Budesonide 0.25 MG/2 ML NEB INH SCH ×2 (10:39→19:03)
[2022-08-14] MEDS: Rivaroxaban 15 MG TAB PO SCH (17:42)
[2022-08-14] MEDS: Atorvastatin Calcium 20 MG TAB PO SCH (19:53)
[2022-08-14] MEDS: Acetaminophen 325 MG TAB PO PRN (19:53)
[2022-08-15] MEDS: Budesonide 0.25 MG/2 ML NEB INH SCH ×2 (07:04→18:53)
[2022-08-15] MEDS: Ferrous Sulfate 325 MG TAB PO SCH (08:28)
[2022-08-15] MEDS: Allopurinol 100 MG TAB PO SCH (08:29)
[2022-08-15] MEDS: Amiodarone 200 MG TAB PO SCH (08:29)
[2022-08-15] MEDS: Furosemide 40 MG TAB PO SCH (08:29)
[2022-08-15] MEDS: Rivaroxaban 15 MG TAB PO SCH (17:21)
[2022-08-15] MEDS: Atorvastatin Calcium 20 MG TAB PO SCH (20:27)
[2022-08-16 06:31] LABS: #Eosinphils 0.2 thou/uL (0.0-0.7); #Lymphocytes 1.3 thou/uL (1.20-3.40); #Monocytes 0.6 thou/uL (0.11-0.59); #Neutrophils 3.9 thou/uL (1.40-6.50); %Basophils 0.5 % (0.0-1.0); %Eosinophils 2.5 % (0.0-10.0); %Monocytes 10.1 % (0.0-10.0); %Neutrophils 64.8 % (42.0-75.0); Hemoglobin 9.8 g/dL (12.0-16.0); Mean Corpuscular HGB CONC 30.5 g/dL (32.0-36.0); Mean Corpuscular Hemoglobin 22.4 pg (27.0-31.0); Mean Corpuscular Volume 73.5 fl (78.0-98.0); Mean Platelet Volume 8.6 fL (7.4-10.4); Platelet Count 372 10x3/uL (130-400); RBC Distribution Width 20.9 % (11.5-14.5); Red Blood Cell (RBC) Count 4.38 mill/uL (4.20-5.40); White Blood Cell (WBC) Count 6.1 10x3/uL (4.8-10.8)
[2022-08-16 06:33] LABS: Hemoglobin 9.9 g/dL (12.0-16.0); Platelet Count 350 10x3/uL (130-400)
[2022-08-16] MEDS: Budesonide 0.25 MG/2 ML NEB INH SCH ×2 (06:45→18:44)
[2022-08-16 06:55] LABS: Anion Gap 12 mmol/L (10-20); BUN (Urea Nitrogen) 31 mg/dL (9.8-20.1); Calc. Creatinine Clearance 26 mL/min (70-130); Calcium 9.3 mg/dL (7.8-10.44); Carbon Dioxide 28 mmol/L (23-31); Chloride 103 mmol/L (98-107); Estimated GFR 34; Glucose 84 mg/dL (83-110); Potassium 4.1 mmol/L (3.5-5.1); Sodium 139 mmol/L (136-145)
[2022-08-16] MEDS: Allopurinol 100 MG TAB PO SCH (08:41)
[2022-08-16] MEDS: Furosemide 40 MG TAB PO SCH (08:41)
[2022-08-16] MEDS: Amiodarone 200 MG TAB PO SCH (08:41)
[2022-08-16] MEDS: Rivaroxaban 15 MG TAB PO SCH (16:26)
[2022-08-16] MEDS: Atorvastatin Calcium 20 MG TAB PO SCH (19:38)
[2022-08-17] MEDS: Budesonide 0.25 MG/2 ML NEB INH SCH (08:16)
[2022-08-17] MEDS: Amiodarone 200 MG TAB PO SCH (08:36)
[2022-08-17] MEDS: Furosemide 40 MG TAB PO SCH (08:36)
[2022-08-17] MEDS: Ferrous Sulfate 325 MG TAB PO SCH (08:36)
[2022-08-17] MEDS ORDERED: Allopurinol 100 MG TAB PO SCH (09:00)
[2022-08-17 15:18] VITALS: BP 114/63; TEMP 97.3
== END 2022-08-17 15:37 | DRG 291 ==
LOC: ERS 11:10 → ERHOLD 13:15 → IMCU/EMU 18:01 → 2NO 07-29 17:08 → IMCU/EMU 07-29 17:12 → T4-A 08-03 16:54
PROVIDERS: ADMIT Student in an Organized Health Care Education/Training Program; ATTEND Family Medicine
PROC: 5A09357 Assistance with Respiratory Ventilation, Less than 24 Consecutive Hours, Continuous Positive Airway Pressure (ICD-10-PCS; principal; 2022-07-27)
PROC: 30233N1 Transfusion of Nonautologous Red Blood Cells into Peripheral Vein, Percutaneous Approach (ICD-10-PCS; 2022-07-31)
DX: I13.0 Hypertensive heart and chronic kidney disease with heart failure and stage 1 through stage 4 chronic kidney disease, or unspecified chronic kidney disease (principal); I50.33 Acute on chronic diastolic (congestive) heart failure; J96.21 Acute and chronic respiratory failure with hypoxia; I48.21 Permanent atrial fibrillation; N17.9 Acute kidney failure, unspecified; C34.12 Malignant neoplasm of upper lobe, left bronchus or lung; Z20.822 Contact with and (suspected) exposure to COVID-19; I27.20 Pulmonary hypertension, unspecified; J44.9 Chronic obstructive pulmonary disease, unspecified; D63.1 Anemia in chronic kidney disease; K21.9 Gastro-esophageal reflux disease without esophagitis; E55.9 Vitamin D deficiency, unspecified; R94.31 Abnormal electrocardiogram [ECG] [EKG]; I25.10 Atherosclerotic heart disease of native coronary artery without angina pectoris; I08.3 Combined rheumatic disorders of mitral, aortic and tricuspid valves; Z98.42 Cataract extraction status, left eye; Z79.899 Other long term (current) drug therapy; Z98.41 Cataract extraction status, right eye; Z90.49 Acquired absence of other specified parts of digestive tract; Z79.01 Long term (current) use of anticoagulants; Z90.89 Acquired absence of other organs; Z90.710 Acquired absence of both cervix and uterus; Z98.890 Other specified postprocedural states; Z82.49 Family history of ischemic heart disease and other diseases of the circulatory system; Z83.3 Family history of diabetes mellitus; Z87.891 Personal history of nicotine dependence; Z99.81 Dependence on supplemental oxygen
CPT/HCPCS: 36415; 36430; 70553; 71045; 71275; 80048; 80053; 81003; 82550; 82570; 82728; 83540; 83550; 83605; 83690; 83735; 83880; 84100; 84145; 84443; 84484; 84540; 85014; 85018; 85025; 85049; 86850; 86900; 86901; 87811; 93005; 93306; 94640; 94660; 96374; J1940; J3475; J7611; J7620; J7626; P9016; Q9967; U0002

== ENCOUNTER → 2022-11-08 | Outpatient (CLI) | payer MEDICARE | LOC: PET 12:30 | PROVIDERS: ATTEND Internal Medicine | DX: C34.12 Malignant neoplasm of upper lobe, left bronchus or lung (principal); R91.8 Other nonspecific abnormal finding of lung field; R59.0 Localized enlarged lymph nodes | CPT/HCPCS: 78815; A9552 ==

== ENCOUNTER 2022-12-14 11:23 | Day surgery (SDC) | payer MEDICARE ==
[2022-12-11 12:53] VITALS: BMI 22.3
[2022-12-14 11:35] LABS: #Eosinphils 0.1 thou/uL (0.0-0.7); #Monocytes 0.6 thou/uL (0.11-0.59); #Neutrophils 5.5 thou/uL (1.40-6.50); %Basophils 0.5 % (0.0-1.0); %Eosinophils 1.7 % (0.0-10.0); %Lymphocytes 16.1 % (21.0-51.0); %Monocytes 8.3 % (0.0-10.0); Hemoglobin 11.2 g/dL (12.0-16.0); Mean Corpuscular HGB CONC 30.4 g/dL (32.0-36.0); Mean Corpuscular Hemoglobin 26.8 pg (27.0-31.0); Mean Platelet Volume 9.5 fL (7.4-10.4); Platelet Count 203 10x3/uL (130-400); RBC Distribution Width 14.1 % (11.5-14.5); Red Blood Cell (RBC) Count 4.18 mill/uL (4.20-5.40); White Blood Cell (WBC) Count 7.6 10x3/uL (4.8-10.8)
[2022-12-14] MEDS ORDERED: Acetaminophen 500 MG TAB ONE (11:44)
[2022-12-14 11:58] LABS: Anion Gap 14 mmol/L (10-20); BUN (Urea Nitrogen) 23 mg/dL (9.8-20.1); Calc. Creatinine Clearance 24 mL/min (70-130); Calcium 9.3 mg/dL (7.8-10.44); Carbon Dioxide 27 mmol/L (23-31); Chloride 104 mmol/L (98-107); Estimated GFR 31; Glucose 84 mg/dL (83-110); Potassium 4.3 mmol/L (3.5-5.1); Sodium 141 mmol/L (136-145)
[2022-12-14] MEDS ORDERED: Bupivacaine/Epinephrine 0.25% 30 ML VIAL ONE (12:34)
[2022-12-14] MEDS ORDERED: Lidocaine 2% PF 5 ML VIAL ONE (12:34)
[2022-12-14] MEDS ORDERED: fentaNYL PF 100 MCG/2 ML SYRINGE ONE (12:45)
[2022-12-14] MEDS ORDERED: CEFAZOLIN 2 GM VIAL ONE (12:51)
[2022-12-14] MEDS ORDERED: Sodium Chloride 0.9% 100 ML ONE (12:51)
[2022-12-14] MEDS ORDERED: Lidocaine 1% PF 5 ML VIAL ONE (13:01)
[2022-12-14] MEDS ORDERED: PROPOFOL 200 MG/20 ML VIAL ONE (13:01)
[2022-12-14] MEDS ORDERED: Ondansetron PF 4 MG/2 ML Vial ONE (13:01)
[2022-12-14] MEDS ORDERED: Dexamethasone 20 MG/5 ML VIAL ONE (13:01)
== END 2022-12-14 15:15 | disposition home or self-care (01) ==
LOC: SDC 11:23
PROVIDERS: ATTEND Specialist
PROC: 0JHD0WZ Insertion of Totally Implantable Vascular Access Device into Right Upper Arm Subcutaneous Tissue and Fascia, Open Approach (ICD-10-PCS; principal; 2022-12-14)
DX: C34.91 Malignant neoplasm of unspecified part of right bronchus or lung (principal); C34.92 Malignant neoplasm of unspecified part of left bronchus or lung; E78.00 Pure hypercholesterolemia, unspecified; G45.9 Transient cerebral ischemic attack, unspecified; I13.0 Hypertensive heart and chronic kidney disease with heart failure and stage 1 through stage 4 chronic kidney disease, or unspecified chronic kidney disease; I50.9 Heart failure, unspecified; N18.9 Chronic kidney disease, unspecified; M10.9 Gout, unspecified; J44.9 Chronic obstructive pulmonary disease, unspecified; I48.91 Unspecified atrial fibrillation; Z90.710 Acquired absence of both cervix and uterus; Z79.899 Other long term (current) drug therapy
CPT/HCPCS: 71045; 80048; 85025; C1788; J1100; J1642; J2001; J2405; J2704; J3490

== ENCOUNTER 2023-03-15 16:12 | Outpatient (CLI) | payer MEDICARE | END 2023-03-15 16:13 | disposition home or self-care (01) | LOC: BICCT 16:12 | PROVIDERS: ATTEND Internal Medicine | DX: R06.02 Shortness of breath (principal); C34.12 Malignant neoplasm of upper lobe, left bronchus or lung; J69.8 Pneumonitis due to inhalation of other solids and liquids; I50.22 Chronic systolic (congestive) heart failure; J98.4 Other disorders of lung | CPT/HCPCS: 71250 ==